=== PATIENT | male | born 1960 | race Caucasian/White ===

== ENCOUNTER 2018-02-06 13:38 | Inpatient (IN) | payer MEDICARE, MEDICAID ==
[2018-02-06] MEDS: IPRATROPIUM 0.5MG/ALBUTEROL 2.5MG INH SOL UD 3ML (DUONEB)(J7620) NEB ×3 (14:14→18:29)
[2018-02-06 14:21] LABS: ABG BASE EXCESS 0.3 (-2.0-2.0); ABG HCO3 22.3 MEQ/L (22.0-26.0); ABG O2 SATURATION 94.3 % (95.0-99.0); ABG PARTIAL PRESSURE CO2 29.8 mmHg (35.0-45.0); ABG STANDARD HCO3 24.6 MEQ/L (22.0-26.0); ABG TOTAL CO2 23.2 MEQ/L (22.0-29.0); ABG pH (ARTERIAL) 7.492 UNITS (7.350-7.450)
[2018-02-06 14:40] LABS: BASO # 0.1 10^3/uL (0.0-0.2); BASO % 0.3 % (0.0-1.0); EOS % 0.1 % (0.0-3.0); HEMOGLOBIN 16.1 g/dl (13.5-17.5); IMMATURE GRANULOCYTE % 0.5 % (0-3.0); LYMPH # 1.6 10^3/uL (1.5-4.5); LYMPH % 8.2 % (24.0-44.0); MEAN CORPUSCULAR HGB CONC 34.3 g/dl (32.0-36.5); MEAN CORPUSCULAR VOLUME 87.7 fl (80.0-96.0); MONO # 1.4 10^3/uL (0.0-0.8); MONO % 7.3 % (0.0-5.0); NEUTROPHILS # 16.3 10^3/uL (1.8-7.7); NEUTROPHILS % 83.6 % (36.0-66.0); PLATELET COUNT, AUTOMATED 298 10^3/uL (150-450); RED BLOOD COUNT 5.36 10^6/uL (4.30-6.10); RED CELL DISTRIBUTION WIDTH 12.8 % (11.5-14.5); WHITE BLOOD COUNT 19.4 10^3/uL (4.0-10.0)
[2018-02-06 15:04] LABS: LACTIC ACID SEPSIS PROTOCOL 1.5 MMOL/L (0.4-2.0)
[2018-02-06 15:06] LABS: ALBUMIN 3.6 GM/DL (3.2-5.2); ALKALINE PHOSPHATASE 89 U/L (45-117); ALT/SGPT 30 U/L (12-78); ANION GAP 9 MEQ/L (8-16); AST/SGOT 27 U/L (7-37); BILIRUBIN,DIRECT 0.2 MG/DL (0.0-0.2); BILIRUBIN,TOTAL 0.7 MG/DL (0.2-1.0); BLOOD UREA NITROGEN 13 MG/DL (7-18); CALCIUM LEVEL 8.8 MG/DL (8.5-10.1); CARBON DIOXIDE LEVEL 26 MEQ/L (21-32); CHLORIDE LEVEL 100 MEQ/L (98-107); CPK CREATINE PHOSPHOKINASE 121 U/L (39-308); CREATININE FOR GFR 0.95 MG/DL (0.70-1.30); GLOMERULAR FILTRATION RATE > 60.0 (>56); GLUCOSE, FASTING 114 MG/DL (70-100); POTASSIUM SERUM 4.5 MEQ/L (3.5-5.1); SODIUM LEVEL 135 MEQ/L (136-145); TOTAL PROTEIN 7.2 GM/DL (6.4-8.2); TROPONIN I < 0.02 NG/ML (< 0.10)
[2018-02-06 15:12] LABS: CK-MB VALUE MASS 2.6 NG/ML (<3.6); MB/CK RELATIVE INDEX 2.14 (< OR =4); NT-PRO BNP 113 PG/ML (<125)
[2018-02-06] MEDS ORDERED: ISOVUE-370 76% 100ML VIAL (Q9967) As Ordered (15:30)
[2018-02-06] MEDS: methylPREDNISolone INJ 125 MG/2 ML VIAL (J2930) IV ×2 (15:35→21:49)
[2018-02-06] MEDS: MOXIFLOXACIN HCL 400 MG in APPROPRIATE DILUENT 1 EA IV (15:50)
[2018-02-06] MEDS ORDERED: ONDANSETRON 4MG/2ML VIAL (J2405) IV (16:00)
[2018-02-06] MEDS ORDERED: ONDANSETRON 4 MG TAB (S0181) PO (16:00)
[2018-02-06] MEDS ORDERED: IPRATROPIUM 0.5MG/ALBUTEROL 2.5MG INH SOL UD 3ML (DUONEB)(J7620) NEB (16:00)
[2018-02-06 20:59] LABS: CK-MB VALUE MASS 2.8 NG/ML (<3.6); CPK CREATINE PHOSPHOKINASE 109 U/L (39-308); MB/CK RELATIVE INDEX 2.56 (< OR =4); TROPONIN I < 0.02 NG/ML (< 0.10)
[2018-02-06 21:01] LABS: KETONE, URINE AUTO RFX 1+ mg/dL (NEGATIVE); LEUKOCYTE ESTERASE UR AUTO RFX NEGATIVE (NEGATIVE); NITRITE, URINE AUTO RFX NEGATIVE (NEGATIVE); RBC, URINE AUTO RFX 3 /HPF (0-3); SQUAM EPITHELIAL CELL UR AURFX 0 /HPF (0-6); WBC, URINE AUTO RFX 1 /HPF (0-3)
[2018-02-06 21:02] LABS: SPECIFIC GRAVITY UR AUTO RFX >1.060 (1.002-1.035)
[2018-02-07] MEDS: IPRATROPIUM 0.5MG/ALBUTEROL 2.5MG INH SOL UD 3ML (DUONEB)(J7620) NEB ×4 (03:06→21:05)
[2018-02-07] MEDS: methylPREDNISolone INJ 125 MG/2 ML VIAL (J2930) IV ×4 (03:50→21:20)
[2018-02-07 05:53] LABS: BASO % 0.1 % (0.0-1.0); HEMATOCRIT 41.6 % (42.0-52.0); HEMOGLOBIN 14.5 g/dl (13.5-17.5); IMMATURE GRANULOCYTE % 0.4 % (0-3.0); LYMPH # 0.7 10^3/uL (1.5-4.5); LYMPH % 4.2 % (24.0-44.0); MEAN CORPUSCULAR HEMOGLOBIN 30.1 pg (27.0-33.0); MEAN CORPUSCULAR HGB CONC 34.9 g/dl (32.0-36.5); MEAN CORPUSCULAR VOLUME 86.5 fl (80.0-96.0); MONO # 0.3 10^3/uL (0.0-0.8); MONO % 1.9 % (0.0-5.0); NEUTROPHILS # 14.6 10^3/uL (1.8-7.7); NEUTROPHILS % 93.4 % (36.0-66.0); PLATELET COUNT, AUTOMATED 322 10^3/uL (150-450); RED BLOOD COUNT 4.81 10^6/uL (4.30-6.10); RED CELL DISTRIBUTION WIDTH 12.7 % (11.5-14.5); WHITE BLOOD COUNT 15.6 10^3/uL (4.0-10.0)
[2018-02-07 06:04] LABS: ANION GAP 8 MEQ/L (8-16); BLOOD UREA NITROGEN 17 MG/DL (7-18); CALCIUM LEVEL 9.1 MG/DL (8.5-10.1); CARBON DIOXIDE LEVEL 24 MEQ/L (21-32); CHLORIDE LEVEL 100 MEQ/L (98-107); GLOMERULAR FILTRATION RATE > 60.0 (>56); GLUCOSE, FASTING 175 MG/DL (70-100); MAGNESIUM LEVEL 2.4 MG/DL (1.8-2.4); POTASSIUM SERUM 4.4 MEQ/L (3.5-5.1); SODIUM LEVEL 132 MEQ/L (136-145)
[2018-02-07] MEDS: ENOXAPARIN 40 MG/0.4 ML SYRINGE (J1650) SC (08:53)
[2018-02-07] MEDS ORDERED: SLF 3 ML SYR IV (10:15)
[2018-02-07] MEDS: ACETAMINOPHEN TAB 650MG DOSE (2X325MG) PO (10:51)
[2018-02-07] MEDS: KETOROLAC 30 MG/ML VIAL (J1885) IV (11:57)
[2018-02-07] MEDS: SLF 3 ML SYR IV ×2 (14:33→21:20)
[2018-02-07] MEDS: VANCOMYCIN HCL 1,000 MG, VIAL MATE ADAPTER 1 EACH in D5W 250 ML IV ×2 (14:33→21:20)
[2018-02-07] MEDS: VANCOMYCIN HCL 500 MG in D5W MINI-BAG PLUS 100 ML IV (15:26)
[2018-02-07] MEDS: LevoFLOXacin IV 750 MG in APPROPRIATE DILUENT 1 EA IV (17:58)
[2018-02-08] MEDS: IPRATROPIUM 0.5MG/ALBUTEROL 2.5MG INH SOL UD 3ML (DUONEB)(J7620) NEB ×4 (01:50→20:08)
[2018-02-08] MEDS: KETOROLAC 30 MG/ML VIAL (J1885) IV ×2 (02:00→22:47)
[2018-02-08] MEDS: methylPREDNISolone INJ 125 MG/2 ML VIAL (J2930) IV (04:04)
[2018-02-08 05:09] LABS: BASO % 0.1 % (0.0-1.0); HEMATOCRIT 39.3 % (42.0-52.0); HEMOGLOBIN 13.6 g/dl (13.5-17.5); IMMATURE GRANULOCYTE % 0.6 % (0-3.0); LYMPH # 0.8 10^3/uL (1.5-4.5); LYMPH % 3.6 % (24.0-44.0); MEAN CORPUSCULAR HEMOGLOBIN 30.3 pg (27.0-33.0); MEAN CORPUSCULAR HGB CONC 34.6 g/dl (32.0-36.5); MEAN CORPUSCULAR VOLUME 87.5 fl (80.0-96.0); MONO # 0.8 10^3/uL (0.0-0.8); MONO % 3.5 % (0.0-5.0); NEUTROPHILS # 20.6 10^3/uL (1.8-7.7); NEUTROPHILS % 92.2 % (36.0-66.0); PLATELET COUNT, AUTOMATED 370 10^3/uL (150-450); RED BLOOD COUNT 4.49 10^6/uL (4.30-6.10); RED CELL DISTRIBUTION WIDTH 12.8 % (11.5-14.5); WHITE BLOOD COUNT 22.3 10^3/uL (4.0-10.0)
[2018-02-08 05:23] LABS: ANION GAP 6 MEQ/L (8-16); BLOOD UREA NITROGEN 32 MG/DL (7-18); CALCIUM LEVEL 9.2 MG/DL (8.5-10.1); CARBON DIOXIDE LEVEL 25 MEQ/L (21-32); CHLORIDE LEVEL 102 MEQ/L (98-107); CREATININE FOR GFR 0.97 MG/DL (0.70-1.30); GLOMERULAR FILTRATION RATE > 60.0 (>56); GLUCOSE, FASTING 181 MG/DL (70-100); MAGNESIUM LEVEL 2.1 MG/DL (1.8-2.4); SODIUM LEVEL 133 MEQ/L (136-145)
[2018-02-08] MEDS: VANCOMYCIN HCL 1,000 MG, VIAL MATE ADAPTER 1 EACH in D5W 250 ML IV ×3 (06:07→22:27)
[2018-02-08] MEDS: SLF 3 ML SYR IV ×3 (06:07→22:27)
[2018-02-08 08:31] LABS: C REACTIVE PROTEIN QUANTITATIV 8.96 MG/DL (0.00-0.30)
[2018-02-08 08:52] LABS: ERYTHROCYTE SEDIMENTATION RATE 11 mm/hr (0-20)
[2018-02-08] MEDS: ENOXAPARIN 40 MG/0.4 ML SYRINGE (J1650) SC (09:14)
[2018-02-08 14:15] LABS: VANCOMYCIN LEVEL TROUGH 16.6 UG/ML (10.0-20.0)
[2018-02-08] MEDS: methylPREDNISolone INJ 40 MG/1 ML VIAL (J2920) IV (17:19)
[2018-02-08] MEDS: LevoFLOXacin IV 750 MG in APPROPRIATE DILUENT 1 EA IV (17:19)
[2018-02-09] MEDS: IPRATROPIUM 0.5MG/ALBUTEROL 2.5MG INH SOL UD 3ML (DUONEB)(J7620) NEB ×2 (01:44→07:28)
[2018-02-09] MEDS: methylPREDNISolone INJ 40 MG/1 ML VIAL (J2920) IV (04:29)
[2018-02-09 05:16] LABS: BASO % 0.2 % (0.0-1.0); HEMATOCRIT 36.7 % (42.0-52.0); HEMOGLOBIN 12.6 g/dl (13.5-17.5); IMMATURE GRANULOCYTE % 0.9 % (0-3.0); LYMPH # 0.9 10^3/uL (1.5-4.5); LYMPH % 5.3 % (24.0-44.0); MEAN CORPUSCULAR HEMOGLOBIN 30.1 pg (27.0-33.0); MEAN CORPUSCULAR HGB CONC 34.3 g/dl (32.0-36.5); MEAN CORPUSCULAR VOLUME 87.6 fl (80.0-96.0); MONO % 5.6 % (0.0-5.0); NEUTROPHILS # 15.2 10^3/uL (1.8-7.7); PLATELET COUNT, AUTOMATED 375 10^3/uL (150-450); RED BLOOD COUNT 4.19 10^6/uL (4.30-6.10); WHITE BLOOD COUNT 17.3 10^3/uL (4.0-10.0)
[2018-02-09 05:31] LABS: ANION GAP 6 MEQ/L (8-16); BLOOD UREA NITROGEN 21 MG/DL (7-18); C REACTIVE PROTEIN QUANTITATIV 3.78 MG/DL (0.00-0.30); CARBON DIOXIDE LEVEL 25 MEQ/L (21-32); CHLORIDE LEVEL 106 MEQ/L (98-107); CREATININE FOR GFR 0.87 MG/DL (0.70-1.30); GLOMERULAR FILTRATION RATE > 60.0 (>56); GLUCOSE, FASTING 160 MG/DL (70-100); MAGNESIUM LEVEL 1.9 MG/DL (1.8-2.4); POTASSIUM SERUM 4.8 MEQ/L (3.5-5.1); SODIUM LEVEL 137 MEQ/L (136-145)
[2018-02-09 05:49] LABS: ERYTHROCYTE SEDIMENTATION RATE 12 mm/hr (0-20)
[2018-02-09] MEDS: VANCOMYCIN HCL 1,000 MG, VIAL MATE ADAPTER 1 EACH in D5W 250 ML IV (05:59)
[2018-02-09] MEDS: SLF 3 ML SYR IV (05:59)
[2018-02-09] MEDS: ENOXAPARIN 40 MG/0.4 ML SYRINGE (J1650) SC (08:22)
[2018-02-09] MEDS: LevoFLOXacin 750 MG TABLET PO (08:22)
[2018-02-10] MEDS ORDERED: predniSONE 20 MG TAB PO (09:00)
== END 2018-02-09 12:40 | disposition home or self-care (01) | DRG 190 ==
LOC: M ED 13:38 → M MSPAV 02-08 15:06 → M ED INP 16:21 → M PCU 21:27
DX: J44.1 Chronic obstructive pulmonary disease with (acute) exacerbation (principal); J18.9 Pneumonia, unspecified organism; I31.3 Pericardial effusion (noninflammatory); E87.1 Hypo-osmolality and hyponatremia; M19.90 Unspecified osteoarthritis, unspecified site; F31.9 Bipolar disorder, unspecified; E78.5 Hyperlipidemia, unspecified; K40.91 Unilateral inguinal hernia, without obstruction or gangrene, recurrent; E07.9 Disorder of thyroid, unspecified

== ENCOUNTER 2018-03-08 07:57 | Day surgery (SDC) | payer OTHER, MEDICAID ==
[~2018-03-08 07:57] MED LIST: LIDOCAINE 2% INJ 100 MG/5 ML SDV (FOR ANES.) As Ordered; MIDAZOLAM INJ 2 MG/2 ML VIAL (J2250) As Ordered; PROPOFOL 200 MG/20 ML VIAL As Ordered; fentaNYL 100 MCG/2 ML INJECTION (J3010) As Ordered
[2018-03-08] MEDS: LR 1,000 ML IV ×2 (08:23→11:58)
[2018-03-08] MEDS ORDERED: BUPIVACAINE HCL 0.25% 30 ML VIAL As Ordered (09:02)
[2018-03-08] MEDS ORDERED: PROPOFOL 200 MG/20 ML VIAL As Ordered (10:14)
[2018-03-08] MEDS ORDERED: dexameTHASONE 4 MG/ML 1ML VIAL (J1100) As Ordered (10:14)
[2018-03-08] MEDS ORDERED: ONDANSETRON 4MG/2ML VIAL (J2405) As Ordered (10:14)
[2018-03-08] MEDS: BUPIVACAINE HCL 0.25% 30 ML VIAL As Ordered (11:20)
[2018-03-08] MEDS ORDERED: IBUPROFEN 600 MG TAB PO (12:15)
[2018-03-08] MEDS ORDERED: ACETAMINOPHEN TAB 650MG DOSE (2X325MG) PO (12:15)
[2018-03-08] MEDS ORDERED: ONDANSETRON 4MG/2ML VIAL (J2405) IV (12:15)
[2018-03-08] MEDS ORDERED: NORCO, ANEXSIA 5/325MG TABLET (HYDROcodone/ACETAMINOPHEN) PO (12:15)
[2018-03-08] MEDS ORDERED: fentaNYL 100 MCG/2 ML INJECTION (J3010) IV (12:15)
[2018-03-08] MEDS: PERCOCET 5MG/325MG TAB PO ×2 (12:40→13:10)
== END 2018-03-08 17:50 | disposition home or self-care (01) ==
LOC: M SDC 07:57
DX: K40.90 Unilateral inguinal hernia, without obstruction or gangrene, not specified as recurrent (principal); J44.9 Chronic obstructive pulmonary disease, unspecified; Z79.51 Long term (current) use of inhaled steroids; Z87.891 Personal history of nicotine dependence
CPT/HCPCS: 49520

== ENCOUNTER 2018-03-22 17:37 | Emergency (ER) | payer OTHER, MEDICAID ==
[2018-03-22] MEDS: NS 1,000 ML IV ×2 (17:45→18:16)
[2018-03-22 18:20] LABS: BASO # 0.1 10^3/uL (0.0-0.2); BASO % 0.5 % (0.0-1.0); EOS # 0.1 10^3/uL (0.0-0.50); EOS % 0.9 % (0.0-3.0); HEMATOCRIT 45.5 % (42.0-52.0); HEMOGLOBIN 15.3 g/dl (13.5-17.5); IMMATURE GRANULOCYTE % 0.3 % (0-3.0); LYMPH # 2.5 10^3/uL (1.5-4.5); LYMPH % 15.7 % (24.0-44.0); MEAN CORPUSCULAR HEMOGLOBIN 30.5 pg (27.0-33.0); MEAN CORPUSCULAR HGB CONC 33.6 g/dl (32.0-36.5); MEAN CORPUSCULAR VOLUME 90.6 fl (80.0-96.0); MONO % 6.4 % (0.0-5.0); NEUTROPHILS # 11.9 10^3/uL (1.8-7.7); NEUTROPHILS % 76.2 % (36.0-66.0); PLATELET COUNT, AUTOMATED 414 10^3/uL (150-450); RED BLOOD COUNT 5.02 10^6/uL (4.30-6.10); RED CELL DISTRIBUTION WIDTH 14.6 % (11.5-14.5); WHITE BLOOD COUNT 15.6 10^3/uL (4.0-10.0)
[2018-03-22 18:50] LABS: ALBUMIN/GLOBULIN RATIO 1.14 (1.00-1.93); ALKALINE PHOSPHATASE 96 U/L (45-117); ALT/SGPT 24 U/L (12-78); ANION GAP 6 MEQ/L (8-16); AST/SGOT 16 U/L (7-37); BILIRUBIN,DIRECT 0.1 MG/DL (0.0-0.2); BILIRUBIN,TOTAL 0.5 MG/DL (0.2-1.0); BLOOD UREA NITROGEN 14 MG/DL (7-18); CALCIUM LEVEL 9.4 MG/DL (8.5-10.1); CARBON DIOXIDE LEVEL 29 MEQ/L (21-32); CHLORIDE LEVEL 104 MEQ/L (98-107); CREATININE FOR GFR 0.94 MG/DL (0.70-1.30); GLOMERULAR FILTRATION RATE > 60.0 (>56); GLUCOSE, FASTING 96 MG/DL (70-100); LIPASE 164 U/L (73-393); POTASSIUM SERUM 4.5 MEQ/L (3.5-5.1); SODIUM LEVEL 139 MEQ/L (136-145); TOTAL PROTEIN 7.5 GM/DL (6.4-8.2)
[2018-03-22] MEDS: KETOROLAC 30 MG/ML VIAL (J1885) IV (19:08)
[2018-03-22] MEDS: NORCO, ANEXSIA 5/325MG TABLET (HYDROcodone/ACETAMINOPHEN) PO (19:08)
== END 2018-03-22 20:59 | disposition home or self-care (01) ==
LOC: M ED 17:37
DX: L76.34 Postprocedural seroma of skin and subcutaneous tissue following other procedure (principal); J44.9 Chronic obstructive pulmonary disease, unspecified; Z72.0 Tobacco use; Z79.899 Other long term (current) drug therapy
CPT/HCPCS: J1885

== ENCOUNTER → 2018-07-30 | Outpatient (REF) | payer OTHER, MEDICAID ==
[2018-07-30 16:14] LABS: ALBUMIN 4.3 GM/DL (3.2-5.2); ALKALINE PHOSPHATASE 93 U/L (45-117); ALT/SGPT 21 U/L (12-78); ANION GAP 7 MEQ/L (8-16); AST/SGOT 16 U/L (7-37); BILIRUBIN,TOTAL 0.5 MG/DL (0.2-1.0); BLOOD UREA NITROGEN 8 MG/DL (7-18); CARBON DIOXIDE LEVEL 28 MEQ/L (21-32); CHLORIDE LEVEL 104 MEQ/L (98-107); CHOLESTEROL LEVEL 213 MG/DL (<200); CREATININE FOR GFR 0.98 MG/DL (0.70-1.30); GLOMERULAR FILTRATION RATE > 60.0 (>56); GLUCOSE, FASTING 107 MG/DL (70-100); HDL CHOLESTEROL 60 MG/DL (>40); LDL CHOLESTEROL 138 MG/DL (<100); NON-HDL-C 153 MG/DL; POTASSIUM SERUM 4.7 MEQ/L (3.5-5.1); SODIUM LEVEL 139 MEQ/L (136-145); TOTAL PROTEIN 7.6 GM/DL (6.4-8.2); TRIGLYCERIDES LEVEL 74 MG/DL (<150)
== END ==
LOC: M SFHCPLAZ 14:09
DX: Z00.00 Encounter for general adult medical examination without abnormal findings (principal); Z13.220 Encounter for screening for lipoid disorders; M47.816 Spondylosis without myelopathy or radiculopathy, lumbar region; J44.9 Chronic obstructive pulmonary disease, unspecified; Z72.0 Tobacco use; Z86.59 Personal history of other mental and behavioral disorders
CPT/HCPCS: 84443

== ENCOUNTER → 2019-03-05 | Outpatient (CLI) | payer MEDICARE ==
[~2019-03-05] MED LIST changes: +ADV250INH INH; +ALBU83IN INH; +COMP1MIS3 XX; +HYDR-3715 PO; +ISOVUE-370 76% 100ML VIAL (Q9967) As Ordered ONE; +LEVA750T7 PO; -LIDOCAINE 2% INJ 100 MG/5 ML SDV (FOR ANES.) As Ordered; -MIDAZOLAM INJ 2 MG/2 ML VIAL (J2250) As Ordered; +PRED10TA2 PO; -PROPOFOL 200 MG/20 ML VIAL As Ordered; +SUDA30TA8 PO; +TYLE650T35 PO; +VENTAER INH; -fentaNYL 100 MCG/2 ML INJECTION (J3010) As Ordered
--- NOTE | 2019-03-05 11:36 | REP ---
CT CHEST WITH IV CONTRAST: HISTORY: Hilar adenopathy. Comparison chest CT study is from February 06, 2018. CT CONTRAST DOSE: 75 mL of intravenous Isovue 370. 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 The previously noted infiltrates have resolved. There is advanced emphysematous change throughout the upper lobes bilaterally and, to a slightly lesser extent, in the lower lobes. The left diaphragm is inverted. The right diaphragm is flattened. There is a small quantity of pericardial fluid. There is no pleural effusion. No mediastinal adenopathy is seen. There is a subcarinal lymph node with short axis dimension of 8 mm. There is a right hilar lymph node with short axis dimension of 7 mm. No left hilar adenopathy is seen. The aorta enhances homogeneously without evidence of aneurysm or dissection. There is no filling defect in the pulmonary arterial tree to suggest pulmonary embolus. There is some vascular calcification. No adrenal lesion is seen. There are tiny bilateral renal cortical cysts. No bony destructive lesion is appreciated. No pulmonary nodule is appreciated. IMPRESSION: Advanced COPD. Normal-sized lymph nodes in the right hilus and subcarinal region. No definite adenopathy. Electronically Signed by Raghav Moreno MD 03/05/2019 11:53 A
== END ==
LOC: M RAD 09:35
PROVIDERS: ATTEND Nurse Practitioner Adult Health
DX: J44.9 Chronic obstructive pulmonary disease, unspecified (principal); N28.1 Cyst of kidney, acquired
CPT/HCPCS: 71260; Q9967

== ENCOUNTER → 2019-08-05 | Outpatient (REF) | payer MEDICARE, MEDICAID ==
[~2019-08-05] MED LIST changes: -ISOVUE-370 76% 100ML VIAL (Q9967) As Ordered ONE
[2019-08-05 13:23] LABS: ALBUMIN 4.1 GM/DL (3.2-5.2); ALT/SGPT 20 U/L (12-78); BILIRUBIN,TOTAL 0.5 MG/DL (0.2-1.0); BLOOD UREA NITROGEN 6 MG/DL (7-18); CALCIUM LEVEL 9.9 MG/DL (8.8-10.2); CARBON DIOXIDE LEVEL 28 MEQ/L (21-32); CHLORIDE LEVEL 104 MEQ/L (98-107); CHOLESTEROL LEVEL 167 MG/DL (<200); CHOLESTEROL RISK RATIO 2.492 (<5); CREATININE FOR GFR 0.85 MG/DL (0.70-1.30); GLOMERULAR FILTRATION RATE > 60.0 (>49); GLUCOSE, FASTING 99 MG/DL (70-100); HDL CHOLESTEROL 67 MG/DL (>40); LDL CHOLESTEROL 86 MG/DL (<100); NON-HDL-C 100 MG/DL; POTASSIUM SERUM 5.4 MEQ/L (3.5-5.1); SODIUM LEVEL 139 MEQ/L (136-145); TOTAL PROTEIN 6.8 GM/DL (6.4-8.2); TRIGLYCERIDES LEVEL 69 MG/DL (<150)
[2019-08-05 13:51] LABS: HEMOGLOBIN A1c 5.9 %
== END ==
LOC: M SFHCPLAZ 10:37
PROVIDERS: ATTEND Nurse Practitioner Adult Health
DX: E55.9 Vitamin D deficiency, unspecified (principal); R73.9 Hyperglycemia, unspecified; Z13.220 Encounter for screening for lipoid disorders; I25.10 Atherosclerotic heart disease of native coronary artery without angina pectoris
CPT/HCPCS: 36415; 80053; 80061; 82306; 83036; 84443; G0463

== ENCOUNTER 2020-08-05 08:14 | Inpatient (IN) | payer MEDICARE, MEDICAID ==
[~2020-08-05] VITALS: Ht 167.6 cm; Wt 61.4 kg
[~2020-08-05 08:14] MED LIST changes: +ACET650T61 PO; -TYLE650T35 PO
[2020-08-05] MEDS ORDERED: ADV500INH INH (08:25)
[2020-08-05] MEDS ORDERED: ALBU8.5H INH (08:25)
[2020-08-05] MEDS ORDERED: MELO15TA28 PO (08:25)
[2020-08-05] MEDS ORDERED: ATOR1TAB21 PO (08:25)
[2020-08-05] MEDS ORDERED: DALI250T PO (08:26)
[2020-08-05 09:03] LABS: BASO # 0.1 10^3/uL (0.0-0.2); BASO % 0.4 % (0.0-1.0); EOS # 0.3 10^3/uL (0.0-0.5); EOS % 2.3 % (0.0-3.0); HEMATOCRIT 45.5 % (42.0-52.0); HEMOGLOBIN 15.3 g/dl (13.5-17.5); LYMPH # 1.7 10^3/uL (1.5-5.0); LYMPH % 12.6 % (24.0-44.0); MEAN CORPUSCULAR HEMOGLOBIN 30.2 pg (27.0-33.0); MEAN CORPUSCULAR HGB CONC 33.6 g/dl (32.0-36.5); MEAN CORPUSCULAR VOLUME 89.9 fl (80.0-96.0); MONO # 1.3 10^3/uL (0.0-0.8); MONO % 9.7 % (0.0-5.0); NEUTROPHILS # 9.9 10^3/uL (1.5-8.5); NEUTROPHILS % 74.8 % (36.0-66.0); PLATELET COUNT, AUTOMATED 382 10^3/uL (150-450); RED BLOOD COUNT 5.06 10^6/uL (4.30-6.10); WHITE BLOOD COUNT 13.3 10^3/uL (4.0-10.0)
[2020-08-05 09:13] LABS: BLOOD UREA NITROGEN 10 MG/DL (7-18); CALCIUM LEVEL 8.8 MG/DL (8.8-10.2); CARBON DIOXIDE LEVEL 26 MEQ/L (21-32); CHLORIDE LEVEL 106 MEQ/L (98-107); CREATININE FOR GFR 0.87 MG/DL (0.70-1.30); GLOMERULAR FILTRATION RATE > 60.0 (>49); GLUCOSE, FASTING 129 MG/DL (70-100); POTASSIUM SERUM 4.3 MEQ/L (3.5-5.1); SODIUM LEVEL 138 MEQ/L (136-145)
--- NOTE | 2020-08-05 09:37 | REP ---
INDICATION: DYSPNEA/COUGH. COMPARISON: 02/06/2018. TECHNIQUE: SINGLE PORTABLE AP VIEW OF THE CHEST WAS PERFORMED. FINDINGS: There is hyperinflation. Both diaphragms are flattened. Prominent interstitial markings are seen in each lung base likely representing fibrosis, although some degree of interstitial edema cannot totally be excluded. No consolidating infiltrate is seen. The heart is normal in size. The mediastinal silhouette is unremarkable. The visualized osseous structures are intact. IMPRESSION: Increased interstitial markings in the lung bases bilaterally likely on the basis of COPD and interstitial fibrosis, although some degree of interstitial edema cannot totally be excluded. No consolidating infiltrate. <Electronically signed by Vinh Okeefe > 08/05/20 [id number]
[2020-08-05] MEDS: IPRATROPIUM 0.5MG/ALBUTEROL 2.5MG INH SOL UD 3ML (DUONEB) NEB SCH ×6 (10:02→23:13)
[2020-08-05 11:30] VITALS: O2SAT 86
[2020-08-05] MEDS ORDERED: ALBUTEROL SULFATE 2.5 MG/0.5 ML INH NEB SOLN NEB PRN (13:30)
[2020-08-05] MEDS: DOXYCYCLINE HYCLATE 100MG TABLET PO SCH ×2 (13:37→21:12)
[2020-08-05] MEDS: methylPREDNISolone 40MG 1ML VIAL IV SCH ×2 (13:38→21:11)
[2020-08-05 15:03] VITALS: BP 102/77
--- NOTE | 2020-08-05 18:56 | HPEPDOC ---
General Date of Admission 08/05/20 Date of Service: Aug 05, 2020 Chief Complaint The patient is a 59-year-old male admitted with a reason for visit of Shortness Of Breath. Source: Patient History of Present Illness 59 year old male with h/o COPD presented to the ED with 3 days h/o increasing SOB with increased cough, congestion, increased phlegm production white colored without any fever or chills. He has quit smoking int he last year and is now smoking an oil approved by the cancer society? cannabis oii. He improved a little after nebs and steroids in the ED ans was saturating 89% to 90% at rest however on ambulation to 15 ft he became extremely SOB with spo2 dropping to 86% in room and air and tachypnea to 35. At baseline he does not use any oxygen at home. Resp panel came back positive with Rhinovirus. Patient admitted for viral resp tract infection with acute respiratory failure with hypoxia and COPD exacerbation. Home Medications Scheduled Atorvastatin Calcium (Atorvastatin Calcium) 20 Mg Tablet, 20 MG PO DAILY, (Reported) Meloxicam (Meloxicam) 15 Mg Tablet, 15 MG PO DAILY, (Reported) Roflumilast (Daliresp) 250 Mcg Tablet, 250 MCG PO DAILY, (Reported) Salmeterol/Fluticasone (Advair 500-50 Diskus) 1 Each Blst.w.dev, 1 PUFF INH BID, (Reported) Scheduled PRN Albuterol Sulfate (Albuterol Sulfate Hfa) 8.5 Gm Hfa.aer.ad, 2 PUFFS INH Q4H PRN for SOB/COUGH, (Reported) Allergies Coded Allergies: No Known Allergies (Verified , 03/08/18) Past Medical History Medical History COPD Bipolar disorder, OA, DDD with Chronic low back pain s/p injury after fall in , ADHD, Dyslipidemia, HISTORY -POLYSUBSTANCE ABUSE (CRYSTALMETH AND MARIUAJANA) QUIT IN 2002, h/o thyroid disease, smoking a oil Surgical History RIGHT INGUINAL HERNIA REPAIR AGE 11 LEFT HAND SURGERY 1999 LEFT INGUINAL HERNIA REPAIR 2011 LEFT KNEE ARTHROSCOPIC SURG X 3 LAST ONE 2012 RIGHT INGUINAL/FEMORAL HERNIA REPAIR-DR. BOONE 03/08/2018 Fracture right leg Family History FATHER: 71 YRS, UNKNOWN MOTHER: CVA STATES SHE IS ON BLOOD THINNERS. PATERNAL GRAND MOTHER: DM-2 3 BROTHER(S) , 4 SISTER(S) . 1 SON(S) , 2 DAUGHTER(S) . SISTERS-A NIECE CANCERS AND DIABETES ONE DAUGHTER HAS CERVICAL CANCER Social History * Smoker: former Smoker Alcohol: rarely Drugs: marijuana (CBD oil) A-FIB/CHADSVASC A-FIB History Current/History of A-Fib/PAF?: No Review of Systems Constitutional: Denies: Chills, Fever, Night Sweats Eyes: Denies: Pain, Vision change ENT: Denies: Head Aches, Ear Pain, Dysphagia Skin: Denies: Rash, Lesions, Breakdown Pulmonary: Reports: Dyspnea, Cough Cardiovascular: Denies: Chest Pain, Palpitations, Orthopnea, Paroxysmal Noc. Dyspnea, Lt Headedness Gastrointestinal: Denies: Nausea, Vomiting, Abdominal Pain, Diarrhea Genitourinary: Denies: Dysuria, Frequency, Incontinence, Retention Hematologic: Denies: Bruising, Bleeding Excessively Musculoskeletal: Denies: Neck Pain, Back Pain, Joint Pain, Muscle Pain, Spasms Physical Examination General Exam: Positive: Alert, Cooperative, Mild Distress Eye Exam: Positive: PERRLA, Conjunctiva & lids normal, EOMI; Negative: Sclera icteric ENT Exam: Positive: Atraumatic, Mucous membr. moist/pink, Pharynx Normal Neck Exam: Positive: Supple; Negative: JVD, thyromegaly Chest Exam: Positive: Wheezing, Diminished, Other (use of accessary muscle ) Heart Exam: Positive: Tachycardic, Regular Rhythm, Normal S1, Normal S2; Negative: Murmurs, Rubs Telemetry: Positive: No significant arrhythmia Abdomen Exam: Positive: Normal bowel sounds, Soft; Negative: Tenderness, Hepatospenomegaly Extremity Exam: Positive: Normal pulses; Negative: Clubbing, Cyanosis, Edema Skin Exam: Positive: Nl turgor and temperature; Negative: Breakdown, Lesion Neuro Exam: Positive: Normal Gait, Normal Speech, Cranial Nerves 3-12 NL, Reflexes 2+ Vital Signs Vital Signs Date Time Temp Pulse Resp B/P (MAP) Pulse Ox O2 Delivery O2 Flow Rate FiO2 08/05/20 11:30 86 Room Air 08/05/20 11:00 106 25 137/87 (104) 2.0 08/05/20 08:26 99.2 Laboratory Data Labs 24H Laboratory Tests 2 08/05/20 08:41: Immature Granulocyte % (Auto) 0.2, Neutrophils (%) (Auto) 74.8H, Lymphocytes (%) (Auto) 12.6L, Monocytes (%) (Auto) 9.7H, Eosinophils (%) (Auto) 2.3, Basophils (%) (Auto) 0.4, Neutrophils # (Auto) 9.9H, Lymphocytes # (Auto) 1.7, Monocytes # (Auto) 1.3H, Eosinophils # (Auto) 0.3, Basophils # (Auto) 0.1, Nucleated Red Blood Cells % (auto) 0.0, Anion Gap 6L, Glomerular Filtration Rate > 60.0, Lactic Acid Level 1.0, Calcium Level 8.8 CBC/BMP Laboratory Tests 08/05/20 08:41 Assessment/Plan 59 year old male with h/o COPD presented to the ED with 3 days h/o increasing SOB with increased cough, congestion, increased phlegm production white colored without any fever or chills. He has quit smoking int he last year and is now smoking an oil approved by the cancer society? cannabis oii. He improved a little after nebs and steroids in the ED ans was saturating 89% to 90% at rest however on ambulation to 15 ft he became extremely SOB with spo2 dropping to 86% in room and air and tachypnea to 35. At baseline he does not use any oxygen at home. Resp panel came back positive with Rhinovirus. Patient admitted for viral resp tract infection with acute respiratory failure with hypoxia and COPD exacerbation. Acute resp failure with hypoxia due to Rhino virus infection with COPD exacerbation droplet isolation oxygen supplementation COPD exacerbation duonebs, methyl pred, advair. HLD statin Plan / VTE VTE Prophylaxis Ordered?: Yes REYNOLD FERRELL MD Aug 05, 2020 12:39
[2020-08-05] MEDS: ADVAIR HFA 230/21MCG INHALER INH SCH (19:41)
[2020-08-05] MEDS: FAMOTIDINE 20 MG TAB PO SCH (21:12)
[2020-08-05] MEDS: ENOXAPARIN 40MG/0.4ML SYRINGE (J1650 PER 10MG) SC SCH (21:12)
[2020-08-05 22:00] VITALS: BP 104/76
[2020-08-06] MEDS: IPRATROPIUM 0.5MG/ALBUTEROL 2.5MG INH SOL UD 3ML (DUONEB) NEB SCH ×6 (03:15→23:24)
[2020-08-06 06:00] VITALS: BP 107/79
[2020-08-06] MEDS: methylPREDNISolone 40MG 1ML VIAL IV SCH ×3 (06:22→21:29)
[2020-08-06 06:32] LABS: HEMATOCRIT 42.4 % (42.0-52.0); HEMOGLOBIN 14.5 g/dl (13.5-17.5); MEAN CORPUSCULAR HEMOGLOBIN 30.9 pg (27.0-33.0); MEAN CORPUSCULAR HGB CONC 34.2 g/dl (32.0-36.5); MEAN CORPUSCULAR VOLUME 90.2 fl (80.0-96.0); PLATELET COUNT, AUTOMATED 407 10^3/uL (150-450); WHITE BLOOD COUNT 19.1 10^3/uL (4.0-10.0)
[2020-08-06 06:52] LABS: BLOOD UREA NITROGEN 14 MG/DL (7-18); CALCIUM LEVEL 9.2 MG/DL (8.8-10.2); CARBON DIOXIDE LEVEL 26 MEQ/L (21-32); CHLORIDE LEVEL 104 MEQ/L (98-107); CREATININE FOR GFR 0.75 MG/DL (0.70-1.30); GLOMERULAR FILTRATION RATE > 60.0 (>49); GLUCOSE, FASTING 153 MG/DL (70-100); POTASSIUM SERUM 4.4 MEQ/L (3.5-5.1); SODIUM LEVEL 138 MEQ/L (136-145)
--- NOTE | 2020-08-06 07:57 | ECGEPIP ---
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
[2020-08-06] MEDS: ADVAIR HFA 230/21MCG INHALER INH SCH ×2 (08:35→19:38)
[2020-08-06] MEDS: DOXYCYCLINE HYCLATE 100MG TABLET PO SCH ×2 (09:17→21:30)
--- NOTE | 2020-08-06 12:13 | IPNPDOC ---
Subjective Date Seen The patient was seen on 08/06/20. Subjective Chief Complaint/HPI Still becoming extremely winded on just getting out of bed to chair or to go to the bathroom. Also still having conversational dyspnea. Was able to eat breakfast. Says breathing is OK if he is just resting. No fever or chills. Still has some chest tightness but a little better than yesterday. Objective Physical Examination General Exam: Positive: Alert, Cooperative, Mild Distress, Other (has 8 word conversational dyspnea. ) Eye Exam: Positive: PERRLA, Conjunctiva & lids normal, EOMI; Negative: Sclera icteric ENT Exam: Positive: Atraumatic, Mucous membr. moist/pink, Pharynx Normal Neck Exam: Positive: Supple; Negative: JVD, thyromegaly Chest Exam: Positive: Wheezing, Diminished (overall airentry is very diminished all over the lung. ), Other Heart Exam: Positive: Tachycardic, Regular Rhythm, Normal S1, Normal S2; Negative: Murmurs, Rubs Telemetry: Positive: No significant arrhythmia Abdomen Exam: Positive: Normal bowel sounds, Soft; Negative: Tenderness, Hepatospenomegaly Extremity Exam: Positive: Normal pulses; Negative: Clubbing, Cyanosis, Edema Skin Exam: Positive: Nl turgor and temperature; Negative: Breakdown, Lesion Neuro Exam: Positive: Normal Gait, Normal Speech, Cranial Nerves 3-12 NL, Reflexes 2+ Assessment /Plan Assessment 59 year old male with h/o COPD presented to the ED with 3 days h/o increasing SOB with increased cough, congestion, increased phlegm production white colored without any fever or chills. He has quit smoking int he last year and is now smoking an oil approved by the cancer society? cannabis oii. He improved a little after nebs and steroids in the ED ans was saturating 89% to 90% at rest however on ambulation to 15 ft he became extremely SOB with spo2 dropping to 86% in room and air and tachypnea to 35. At baseline he does not use any oxygen at home. Resp panel came back positive with Rhinovirus. Patient admitted for viral resp tract infection with acute respiratory failure with hypoxia and COPD exacerbation. Acute resp failure with hypoxia due to Rhino virus infection with COPD exacerbation droplet isolation oxygen supplementation COPD exacerbation duonebs, methyl pred, advair, doxycycline. HLD statin Plan/VTE VTE Prophylaxis Ordered?: Yes VS, I&O, 24H, Fishbone Vital Signs/I&O Vital Signs Date Time Temp Pulse Resp B/P (MAP) Pulse Ox O2 Delivery O2 Flow Rate FiO2 08/06/20 09:30 1.0 08/06/20 06:00 96.9 113 22 107/79 (88) 92 Nasal Cannula I&O- Last 24 Hours up to 6 AM 08/06/20 06:00 Intake Total 840 ml Output Total 450 ml Balance 390 ml Laboratory Data 24H LABS Laboratory Tests 2 08/06/20 05:41: Nucleated Red Blood Cells % (auto) 0.0, Anion Gap 8, Glomerular Filtration Rate > 60.0, Calcium Level 9.2 CBC/BMP Laboratory Tests 08/06/20 05:41 Microbiology Microbiology 08/05/20 Respiratory Virus Panel (PCR) ([facility]) - Final, Complete Human Rhinovirus/Enterovirus REYNOLD FERRELL MD Aug 06, 2020 12:13
[2020-08-06] MEDS ORDERED: FUROSEMIDE 20MG/2ML VIAL (J1940) IV ONE (12:15)
[2020-08-06 14:00] VITALS: BP 108/78
[2020-08-06] MEDS: ENOXAPARIN 40MG/0.4ML SYRINGE (J1650 PER 10MG) SC SCH (21:29)
[2020-08-06] MEDS: FAMOTIDINE 20 MG TAB PO SCH (21:30)
[2020-08-06 22:00] VITALS: BP 133/82
[2020-08-07 06:00] VITALS: BP 109/78
[2020-08-07] MEDS: methylPREDNISolone 40MG 1ML VIAL IV SCH (06:56)
[2020-08-07 07:02] LABS: HEMATOCRIT 42.6 % (42.0-52.0); HEMOGLOBIN 14.7 g/dl (13.5-17.5); MEAN CORPUSCULAR HEMOGLOBIN 31.4 pg (27.0-33.0); MEAN CORPUSCULAR HGB CONC 34.5 g/dl (32.0-36.5); PLATELET COUNT, AUTOMATED 436 10^3/uL (150-450); RED BLOOD COUNT 4.68 10^6/uL (4.30-6.10); WHITE BLOOD COUNT 23.2 10^3/uL (4.0-10.0)
[2020-08-07] MEDS: IPRATROPIUM 0.5MG/ALBUTEROL 2.5MG INH SOL UD 3ML (DUONEB) NEB SCH ×6 (07:16→23:40)
[2020-08-07] MEDS: ADVAIR HFA 230/21MCG INHALER INH SCH ×2 (07:16→19:37)
[2020-08-07 07:23] LABS: BLOOD UREA NITROGEN 16 MG/DL (7-18); CALCIUM LEVEL 9.2 MG/DL (8.8-10.2); CARBON DIOXIDE LEVEL 27 MEQ/L (21-32); CHLORIDE LEVEL 106 MEQ/L (98-107); CREATININE FOR GFR 0.85 MG/DL (0.70-1.30); GLOMERULAR FILTRATION RATE > 60.0 (>49); GLUCOSE, FASTING 135 MG/DL (70-100); POTASSIUM SERUM 5.1 MEQ/L (3.5-5.1); SODIUM LEVEL 137 MEQ/L (136-145)
[2020-08-07] MEDS: DOXYCYCLINE HYCLATE 100MG TABLET PO SCH (08:12)
[2020-08-07 14:00] VITALS: BP 106/70
--- NOTE | 2020-08-07 15:45 | IPNPDOC ---
Text Note Date of Service The patient was seen on 08/07/20. NOTE Hospitalist Progress Note Subjective: Continues to be severely short of breath with any sort of exertion, although he does feel quite well when he is at rest. Otherwise, he does not have any specific complaints today. Objective: General: Awake, alert, oriented 3. He is in no acute distress. HEENT: Head normocephalic, atraumatic, sclera are nonicteric. Hearing is grossly intact to conversation. Respiratory: Diminished lung sounds throughout, although faint expiratory wheezes are noted on and expiration in all lung dowell. Cardiovascular: Also has diminished heart sounds, but appears to have regular rate and rhythm, with no rubs, gallops, or murmur. Abdomen: Soft, nontender, nondistended, no hepatosplenomegaly appreciated. Bowel sounds present. Extremities: 2+ pulses in the radial and dorsalis pedis bilaterally. No evidence of clubbing or cyanosis. Assessment: Acute respiratory failure with hypoxia Acute lower respiratory infection secondary to rhinovirus infection Acute exacerbation of COPD Hyperlipidemia Plan: Clinically he does appear to be improving. Oxygen continues to be weaned down, currently only on 1 L nasal cannula, he does not wear oxygen at home. Since his lower respiratory infection is known to be caused by virus, antibiotics will be discontinued at this time. We will switch from IV methylprednisolone to prednisone today as well, and wean down from 40 mg every 8 hours to 40 mg twice a day. Advair has artery been restarted. Continue with nebulizers scheduled every 4 hours, and every 2 hours on an as-needed basis. Will have him evaluated by physical therapy due to his significant dyspnea. VS,Malcolmbone, I+O VS, Fishbone, I+O Laboratory Tests 08/07/20 06:49 Vital Signs Date Time Temp Pulse Resp B/P (MAP) Pulse Ox O2 Delivery O2 Flow Rate FiO2 08/07/20 14:00 98.7 99 23 106/70 (82) 94 Nasal Cannula 08/07/20 09:00 1.0 I&O- Last 24 Hours up to 6 AM 08/07/20 06:00 Intake Total 1650 ml Output Total 975 ml Balance 675 ml MALOU HEAD DO Aug 07, 2020 15:45
[2020-08-07] MEDS: ENOXAPARIN 40MG/0.4ML SYRINGE (J1650 PER 10MG) SC SCH (21:55)
[2020-08-07] MEDS: predniSONE 20 MG TAB PO SCH (21:56)
[2020-08-07] MEDS: FAMOTIDINE 20 MG TAB PO SCH (21:56)
[2020-08-07 22:00] VITALS: BP 115/83
[2020-08-08] MEDS: IPRATROPIUM 0.5MG/ALBUTEROL 2.5MG INH SOL UD 3ML (DUONEB) NEB SCH ×6 (03:21→23:13)
[2020-08-08 06:00] VITALS: BP 109/80
[2020-08-08 06:25] LABS: HEMATOCRIT 42.1 % (42.0-52.0); HEMOGLOBIN 14.3 g/dl (13.5-17.5); MEAN CORPUSCULAR HEMOGLOBIN 30.7 pg (27.0-33.0); MEAN CORPUSCULAR VOLUME 90.3 fl (80.0-96.0); PLATELET COUNT, AUTOMATED 442 10^3/uL (150-450); RED BLOOD COUNT 4.66 10^6/uL (4.30-6.10); WHITE BLOOD COUNT 17.3 10^3/uL (4.0-10.0)
[2020-08-08 06:35] LABS: BLOOD UREA NITROGEN 15 MG/DL (7-18); CALCIUM LEVEL 8.8 MG/DL (8.8-10.2); CARBON DIOXIDE LEVEL 28 MEQ/L (21-32); CHLORIDE LEVEL 102 MEQ/L (98-107); CREATININE FOR GFR 0.87 MG/DL (0.70-1.30); GLOMERULAR FILTRATION RATE > 60.0 (>49); GLUCOSE, FASTING 147 MG/DL (70-100); POTASSIUM SERUM 4.9 MEQ/L (3.5-5.1); SODIUM LEVEL 135 MEQ/L (136-145)
[2020-08-08] MEDS: ADVAIR HFA 230/21MCG INHALER INH SCH ×2 (07:16→19:17)
[2020-08-08] MEDS: predniSONE 20 MG TAB PO SCH ×2 (09:24→21:29)
[2020-08-08 14:00] VITALS: BP 112/93
--- NOTE | 2020-08-08 14:33 | IPNPDOC ---
Text Note Date of Service The patient was seen on 08/08/20. NOTE Hospitalist Progress Note Subjective: The patient is in good spirits this morning, although he continues to be frustrated by his shortness of breath with exertion. He also does continue to require oxygen supplementation to maintain his saturations. He is not on oxygen at home, and this seems to be discouraging for him. He would like to be getting better faster. Otherwise, the remainder of his review of systems is negative. Objective: General: Awake, alert, oriented 3. Not in any acute distress. HEENT: Head normocephalic, atraumatic, sclera are nonicteric. Hearing is grossly intact to conversation. Respiratory: Diminished lung sounds throughout, but end expiratory wheezes are noted in all lung dowell. Cardiovascular: Regular rate and rhythm, with no rubs, gallops, or murmur. Abdomen: Soft, nontender, nondistended, no hepatosplenomegaly appreciated. Bowel sounds present. Extremities: 2+ pulses in the radial and dorsalis pedis bilaterally. No evidence of clubbing or cyanosis. Assessment: Acute respiratory failure with hypoxia Acute lower respiratory infection secondary to rhinovirus infection Acute exacerbation of COPD Hyperlipidemia Physical Deconditioning Plan: Not much improvement clinically since yesterday. Will start him on chest PT with nebulizers, incentive spirometry, and Acapella. Continue with nebulizers scheduled and as needed. Continue Advair. Continue prednisone. Also continue working with physical therapy for rehabilitation from his deconditioned state. VS,Fishbone, I+O VS, Fishbone, I+O Laboratory Tests 08/08/20 05:57 Vital Signs Date Time Temp Pulse Resp B/P (MAP) Pulse Ox O2 Delivery O2 Flow Rate FiO2 08/08/20 14:00 97.8 115 20 112/93 (99) 92 Nasal Cannula 1.0 I&O- Last 24 Hours up to 6 AM 08/08/20 06:00 Intake Total 1470 ml Output Total 675 ml Balance 795 ml MALOU HEAD DO Aug 08, 2020 14:33
[2020-08-08] MEDS: ENOXAPARIN 40MG/0.4ML SYRINGE (J1650 PER 10MG) SC SCH (21:30)
[2020-08-08] MEDS: FAMOTIDINE 20 MG TAB PO SCH (21:30)
[2020-08-08 22:00] VITALS: BP 128/64
[2020-08-09] MEDS: IPRATROPIUM 0.5MG/ALBUTEROL 2.5MG INH SOL UD 3ML (DUONEB) NEB SCH ×5 (03:12→19:46)
[2020-08-09 06:00] VITALS: BP 125/91
[2020-08-09 06:07] LABS: HEMATOCRIT 41.5 % (42.0-52.0); MEAN CORPUSCULAR HEMOGLOBIN 30.5 pg (27.0-33.0); MEAN CORPUSCULAR HGB CONC 33.7 g/dl (32.0-36.5); MEAN CORPUSCULAR VOLUME 90.4 fl (80.0-96.0); PLATELET COUNT, AUTOMATED 456 10^3/uL (150-450); RED BLOOD COUNT 4.59 10^6/uL (4.30-6.10)
[2020-08-09 06:28] LABS: BLOOD UREA NITROGEN 15 MG/DL (7-18); CARBON DIOXIDE LEVEL 27 MEQ/L (21-32); CHLORIDE LEVEL 102 MEQ/L (98-107); CREATININE FOR GFR 0.77 MG/DL (0.70-1.30); GLOMERULAR FILTRATION RATE > 60.0 (>49); GLUCOSE, FASTING 149 MG/DL (70-100); POTASSIUM SERUM 4.8 MEQ/L (3.5-5.1); SODIUM LEVEL 135 MEQ/L (136-145)
[2020-08-09] MEDS: ADVAIR HFA 230/21MCG INHALER INH SCH ×2 (07:36→19:46)
[2020-08-09] MEDS: predniSONE 20 MG TAB PO SCH ×2 (09:58→22:05)
--- NOTE | 2020-08-09 11:22 | IPNPDOC ---
Text Note Date of Service The patient was seen on 08/09/20. NOTE Hospitalist Progress Note Subjective: Patient reports that he is actually feeling better this morning. He is very appreciative of the incentive spirometry and the Acapella, he believes that they are helping. He states that he can take a deeper breath now than he had before. He still isn't short of breath with just about any exertion, but he also he is making notable improvement, whereas he had not been doing so for the past few days. Otherwise, he does not have any other acute complaints, and the remainder of his review of systems negative. Objective: General: Awake, alert, oriented 3. Not in any acute distress. HEENT: Head normocephalic, atraumatic, sclera are nonicteric. Hearing is grossly intact to conversation. Respiratory: Diminished lung sounds throughout, I cannot appreciate any wheezing today. Cardiovascular: Regular rate and rhythm, with no rubs, gallops, or murmur. Abdomen: Soft, nontender, nondistended, no hepatosplenomegaly appreciated. Bowel sounds present. Extremities: 2+ pulses in the radial and dorsalis pedis bilaterally. No evidence of clubbing or cyanosis. Assessment: Acute respiratory failure with hypoxia Acute lower respiratory infection secondary to rhinovirus infection Acute exacerbation of COPD Hyperlipidemia Physical Deconditioning Plan: Clinically does appear to be doing better, still unable to wean off of oxygen completely, and still has significant dyspnea with exertion. Continue with Acapella and incentive spirometry. Continue with nebulizers scheduled and as needed. Continue Advair. Continue prednisone. Also continue working with physical therapy for rehabilitation from his deconditioned state. He reports that his nebulizer machine at home is broken, upon discharge will need to fill out a prescription for him so that he may get a replacement. VS,Fishbone, I+O VS, Fishbone, I+O Laboratory Tests 08/09/20 05:40 Vital Signs Date Time Temp Pulse Resp B/P (MAP) Pulse Ox O2 Delivery O2 Flow Rate FiO2 08/09/20 06:00 98.5 110 20 125/91 (102) 92 Nasal Cannula 1.0 I&O- Last 24 Hours up to 6 AM 08/09/20 06:00 Intake Total 1900 ml Output Total 100 ml Balance 1800 ml MALOU HEAD DO Aug 09, 2020 11:22
[2020-08-09 15:00] VITALS: BP 128/90
[2020-08-09 22:00] VITALS: BP 129/89
[2020-08-09] MEDS: FAMOTIDINE 20 MG TAB PO SCH (22:04)
[2020-08-09] MEDS: ENOXAPARIN 40MG/0.4ML SYRINGE (J1650 PER 10MG) SC SCH (22:05)
[2020-08-10] MEDS: IPRATROPIUM 0.5MG/ALBUTEROL 2.5MG INH SOL UD 3ML (DUONEB) NEB SCH ×7 (00:16→23:19)
[2020-08-10 06:00] VITALS: BP 124/72
[2020-08-10 06:28] LABS: HEMATOCRIT 42.4 % (42.0-52.0); HEMOGLOBIN 13.9 g/dl (13.5-17.5); MEAN CORPUSCULAR HEMOGLOBIN 29.6 pg (27.0-33.0); MEAN CORPUSCULAR HGB CONC 32.8 g/dl (32.0-36.5); MEAN CORPUSCULAR VOLUME 90.2 fl (80.0-96.0); PLATELET COUNT, AUTOMATED 481 10^3/uL (150-450); WHITE BLOOD COUNT 18.7 10^3/uL (4.0-10.0)
[2020-08-10 06:50] LABS: BLOOD UREA NITROGEN 13 MG/DL (7-18); CALCIUM LEVEL 9.3 MG/DL (8.8-10.2); CARBON DIOXIDE LEVEL 28 MEQ/L (21-32); CHLORIDE LEVEL 100 MEQ/L (98-107); CREATININE FOR GFR 0.83 MG/DL (0.70-1.30); GLOMERULAR FILTRATION RATE > 60.0 (>49); GLUCOSE, FASTING 162 MG/DL (70-100); SODIUM LEVEL 133 MEQ/L (136-145)
[2020-08-10] MEDS: ADVAIR HFA 230/21MCG INHALER INH SCH ×2 (07:39→19:55)
[2020-08-10] MEDS: predniSONE 20 MG TAB PO SCH ×2 (08:49→21:59)
[2020-08-10 14:00] VITALS: BP 126/80
--- NOTE | 2020-08-10 16:17 | IPNPDOC ---
Text Note Date of Service The patient was seen on 08/10/20. NOTE Hospitalist Progress Note Subjective: Patient reports that he he is feeling better every day. He has been able to ambulate with physical therapy and with the nurses a few times during the day. Apparently he has been able to do it without oxygen, but his O2 stats still continued to drop on exertion, nevertheless the patient says he is not as dyspneic. He reports that the Acapella and incentive spirometry have been helping him cough up quite a bit of mucus as well. Otherwise, the remainder of his review systems is negative. Objective: General: Awake, alert, oriented 3. Not in any acute distress. HEENT: Head normocephalic, atraumatic, sclera are nonicteric. Hearing is grossly intact to conversation. Respiratory: Somewhat diminished, however I can actually appreciate decent airflow today. No wheezes, rales, rhonchi. Cardiovascular: Regular rate and rhythm, with no rubs, gallops, or murmur. Abdomen: Soft, nontender, nondistended, no hepatosplenomegaly appreciated. Bowel sounds present. Extremities: 2+ pulses in the radial and dorsalis pedis bilaterally. No evidence of clubbing or cyanosis. Assessment: Acute respiratory failure with hypoxia Acute lower respiratory infection secondary to rhinovirus infection Acute exacerbation of COPD Hyperlipidemia Physical Deconditioning Leukocytosis Plan: Continue working with physical therapy until he is safe for discharge. He is not on oxygen at home, and since this acute episode was caused by a viral pneumonia, is expected that his lungs will recover and he will not require oxygen on discharge. Continue with Acapella and incentive spirometry. Continue with nebulizers scheduled and as needed. Continue Advair. Continue prednisone, slowly tapering down Also continue working with physical therapy for rehabilitation from his deconditioned state. Disposition I'm hopeful that we may anticipate discharge within the next 1-2 days. He will be ready for discharge when he is able to maintain his saturations without oxygen supplementation. He will need a prescription for a new nebulizer machine, and a new rolling walker upon discharge. VS,Fishbone, I+O VS, Fishbone, I+O Laboratory Tests 08/10/20 06:09 Vital Signs Date Time Temp Pulse Resp B/P (MAP) Pulse Ox O2 Delivery O2 Flow Rate FiO2 08/10/20 09:00 1.0 08/10/20 06:00 97.8 103 20 124/72 (48) 94 Nasal Cannula I&O- Last 24 Hours up to 6 AM 08/10/20 06:00 Intake Total 1870 ml Balance 1870 ml MALOU HEAD DO Aug 10, 2020 16:17
[2020-08-10] MEDS: FAMOTIDINE 20 MG TAB PO SCH (21:58)
[2020-08-10] MEDS: ENOXAPARIN 40MG/0.4ML SYRINGE (J1650 PER 10MG) SC SCH (21:59)
[2020-08-10 22:00] VITALS: BP 118/86
[2020-08-11] MEDS: IPRATROPIUM 0.5MG/ALBUTEROL 2.5MG INH SOL UD 3ML (DUONEB) NEB SCH ×2 (02:49→08:00)
[2020-08-11 06:00] VITALS: BP 120/88
[2020-08-11 06:50] LABS: HEMATOCRIT 44.4 % (42.0-52.0); HEMOGLOBIN 14.7 g/dl (13.5-17.5); MEAN CORPUSCULAR HEMOGLOBIN 29.9 pg (27.0-33.0); MEAN CORPUSCULAR HGB CONC 33.1 g/dl (32.0-36.5); MEAN CORPUSCULAR VOLUME 90.4 fl (80.0-96.0); PLATELET COUNT, AUTOMATED 519 10^3/uL (150-450); RED BLOOD COUNT 4.91 10^6/uL (4.30-6.10)
[2020-08-11 07:17] LABS: BLOOD UREA NITROGEN 17 MG/DL (7-18); CALCIUM LEVEL 9.1 MG/DL (8.8-10.2); CARBON DIOXIDE LEVEL 29 MEQ/L (21-32); CHLORIDE LEVEL 99 MEQ/L (98-107); CREATININE FOR GFR 0.84 MG/DL (0.70-1.30); GLOMERULAR FILTRATION RATE > 60.0 (>49); GLUCOSE, FASTING 117 MG/DL (70-100); POTASSIUM SERUM 4.5 MEQ/L (3.5-5.1); SODIUM LEVEL 132 MEQ/L (136-145)
[2020-08-11] MEDS: ADVAIR HFA 230/21MCG INHALER INH SCH (08:17)
[2020-08-11] MEDS: predniSONE 20 MG TAB PO SCH (08:54)
[2020-08-11] MEDS ORDERED: ASPIRIN 81 MG ENTERIC TAB PO SCH (09:00)
[2020-08-11] MEDS ORDERED: FAMO20TA PO (09:56)
[2020-08-11] MEDS ORDERED: ALBU83IN NEB (09:56)
[2020-08-11] MEDS ORDERED: PARIMIS30 XX (09:56)
[2020-08-11] MEDS ORDERED: PRED10TA2 PO (09:56)
--- NOTE | 2020-08-11 11:40 | DS.PDOC ---
Discharge Summary General Date of Admission Aug 05, 2020 at 13:14 Date of Discharge 08/11/2020 Discharge Summary PROCEDURES PERFORMED DURING STAY: [None]. ADMITTING DIAGNOSES / DISCHARGE DIAGNOSES: Acute respiratory failure with hypoxia Acute lower respiratory infection secondary to rhinovirus infection Acute exacerbation of COPD DLP Physical Deconditioning Leukocytosis- likely 2/2 corticosteroids DVT prophylaxis COMPLICATIONS/CHIEF COMPLAINT: Shortness of breath HISTORY OF PRESENT ILLNESS: Patient is a 59-year-old male with a PMHx of COPD, Bipolar disorder, OA, Chronic back pain 2/2 DDD (s/p injury from fall), ADHD, DLP, who presented to the hospital with complaints shortness of breath associated with congestion and increased sputum production. Patient was admitted to hospital service for COPD exacerbation. HOSPITAL COURSE: Acute respiratory failure with hypoxia / Acute lower respiratory infection secondary to rhinovirus infection / Acute exacerbation of COPD - Clinically patient is at significant improvement of his breathing - Physical without any wheezing appreciated - Saturating well on room air - CXR 08/05: Increased interstitial markings in the lung bases bilaterally lik alden on the basis of COPD and interstitial fibrosis, although some degree of interstitial edema cannot totally be excluded. No consolidating infiltrate. - c/w inhaled therapy as ordered - Patient has already been transitioned to prednisone orally; will continue to taper as an outpatient - Will have outpatient follow-up with primary care provider within the next 7 days Hyperlipidemia - c/w Atorvastatin on discharge Physical Deconditioning - Cleared PT Leukocytosis- likely 2/2 corticosteroids - c/w taper as an outpatient DVT prophylaxis - c/w Lovenox DISCHARGE MEDICATIONS: Please see below. ALLERGIES: Please see below. PHYSICAL EXAMINATION ON DISCHARGE: Vitals (See below) General: Lying in bed, appears comfortable, awake / alert HEENT: NC, AT CVS: +S1S2 Lungs: Fair air entry b/l, no visual wheezing, rhonchi or rales Abdomen: Soft, ND, NT Extremities: - Edema, - Calf tenderness LABORATORY DATA: Please see below. ACTIVITY: [As tolerated]. DISCHARGE PLAN: Follow-up with primary care provider within the next 7 days Remain compliant with treatment plan and medications Return to the ER if you experience any problems DISPOSITION: Home with services DISCHARGE CONDITION: [Stable]. TIME SPENT ON DISCHARGE: 35 minutes Vital Signs/I&Os Vital Signs Date Time Temp Pulse Resp B/P (MAP) Pulse Ox O2 Delivery O2 Flow Rate FiO2 08/11/20 06:00 97.7 98 20 120/88 (99) 91 Room Air 08/10/20 21:00 1.0 I&O- Last 24 Hours up to 6 AM 08/11/20 06:00 Intake Total 1895 ml Balance 1895 ml Laboratory Data Labs 24H Laboratory Tests 2 08/11/20 06:26: Nucleated Red Blood Cells % (auto) 0.0, Anion Gap 4L, Glomerular Filtration Rate > 60.0, Calcium Level 9.1 CBC/BMP Laboratory Tests 08/11/20 06:26 Microbiology Microbiology 08/05/20 Respiratory Virus Panel (PCR) ([facility]) - Final, Complete Human Rhinovirus/Enterovirus Discharge Medications Scheduled Atorvastatin Calcium (Atorvastatin Calcium) 20 Mg Tablet, 20 MG PO DAILY, (Reported) Famotidine (Famotidine) 20 Mg Tablet, 20 MG PO QHS Meloxicam (Meloxicam) 15 Mg Tablet, 15 MG PO DAILY, (Reported) Prednisone (Prednisone) 10 Mg Tablet, 10 MG PO TAPER Take 4 tabs daily x 3 days, then 3 tabs daily x 3 days, then 2 tabs daily x 3 days, then 1 tab daily x 3 days and stop Roflumilast (Daliresp) 250 Mcg Tablet, 250 MCG PO DAILY, (Reported) Salmeterol/Fluticasone (Advair 500-50 Diskus) 1 Each Blst.w.dev, 1 PUFF INH BID, (Reported) Scheduled PRN Albuterol Sulf (Albuterol Sulfate) 2.5 Mg/3 Ml Vial.neb, 1 VIAL NEB Q4HP PRN for wheezing Albuterol Sulfate (Albuterol Sulfate Hfa) 8.5 Gm Hfa.aer.ad, 2 PUFFS INH Q4H PRN for SOB/COUGH, (Reported) Allergies Coded Allergies: No Known Allergies (Verified , 03/08/18) FORREST LARA MD Aug 11, 2020 11:39
== END 2020-08-11 12:07 | disposition home or self-care (01) | DRG 189 ==
LOC: M ED 08:14 → EDBD 08:14 → M ED INP 13:14 → ENRESERV 13:51 → M MSPAV 15:01
PROVIDERS: ADMIT Internal Medicine Nephrology; ATTEND Internal Medicine
DX: J96.01 Acute respiratory failure with hypoxia (principal); J44.1 Chronic obstructive pulmonary disease with (acute) exacerbation; B34.8 Other viral infections of unspecified site; D72.829 Elevated white blood cell count, unspecified; F31.9 Bipolar disorder, unspecified; M19.90 Unspecified osteoarthritis, unspecified site; E78.5 Hyperlipidemia, unspecified; Z79.899 Other long term (current) drug therapy; Z87.891 Personal history of nicotine dependence; F12.90 Cannabis use, unspecified, uncomplicated

== ENCOUNTER → 2020-10-26 | Outpatient (REF) | payer MEDICARE, MEDICAID ==
[~2020-10-26] MED LIST changes: +ADV500INH INH; +ALBU8.5H INH; +ALBU83IN NEB; +ATOR1TAB21 PO; +DALI250T PO; +FAMO20TA PO; +MELO15TA28 PO; +PARIMIS30 XX
[2020-10-26 16:01] LABS: HEMOGLOBIN A1c 5.5 %
[2020-10-26 16:09] LABS: ALBUMIN 4.3 GM/DL (3.2-5.2); ALT/SGPT 24 U/L (12-78); BILIRUBIN,TOTAL 0.3 MG/DL (0.2-1.0); BLOOD UREA NITROGEN 10 MG/DL (7-18); CALCIUM LEVEL 10.2 MG/DL (8.8-10.2); CARBON DIOXIDE LEVEL 28 MEQ/L (21-32); CHLORIDE LEVEL 104 MEQ/L (98-107); CHOLESTEROL LEVEL 154 MG/DL (<200); CHOLESTEROL RISK RATIO 2.333 (<5); CREATININE FOR GFR 0.87 MG/DL (0.70-1.30); GLOMERULAR FILTRATION RATE > 60.0 (>49); GLUCOSE, FASTING 117 MG/DL (70-100); HDL CHOLESTEROL 66 MG/DL (>40); LDL CHOLESTEROL 78 MG/DL (<100); NON-HDL-C 88 MG/DL; POTASSIUM SERUM 4.7 MEQ/L (3.5-5.1); SODIUM LEVEL 137 MEQ/L (136-145); TOTAL PROTEIN 7.3 GM/DL (6.4-8.2); TRIGLYCERIDES LEVEL 52 MG/DL (<150)
[2020-10-26 16:25] LABS: TOTAL 25(OH) VITAMIN D 25.7 NG/ML (30.0-100.0)
== END ==
LOC: M SFHCPLAZ 14:10
PROVIDERS: ATTEND Nurse Practitioner Adult Health
DX: I25.10 Atherosclerotic heart disease of native coronary artery without angina pectoris (principal); E55.9 Vitamin D deficiency, unspecified; Z13.220 Encounter for screening for lipoid disorders; Z13.1 Encounter for screening for diabetes mellitus; Z79.899 Other long term (current) drug therapy

== ENCOUNTER 2021-05-20 14:12 | Inpatient (IN) | payer MEDICARE, MEDICAID ==
[~2021-05-20] VITALS: Ht 167.6 cm; Wt 60.4 kg
[2021-05-20] MEDS ORDERED: IPRATROPIUM 0.5MG/ALBUTEROL 2.5MG INH SOL UD 3ML (DUONEB) NEB ONE ×2 (14:30)
[2021-05-20 14:50] LABS: HEMATOCRIT 47.6 % (42.0-52.0); HEMOGLOBIN 16.3 g/dl (13.5-17.5); MEAN CORPUSCULAR HEMOGLOBIN 29.7 pg (27.0-33.0); MEAN CORPUSCULAR HGB CONC 34.2 g/dl (32.0-36.5); MEAN CORPUSCULAR VOLUME 86.9 fl (80.0-96.0); PLATELET COUNT, AUTOMATED 196 10^3/uL (150-450); RED BLOOD COUNT 5.48 10^6/uL (4.30-6.10); WHITE BLOOD COUNT 11.7 10^3/uL (4.0-10.0)
--- NOTE | 2021-05-20 14:56 | REP ---
INDICATION: SOB. COMPARISON: Portable chest dated 08/05/2020. TECHNIQUE: Portable AP chest with the patient upright. FINDINGS: The lung dowell are hyperinflated with crowding of the interstitial markings in the lower lung zones, compatible with COPD, unchanged. The costophrenic angles are effaced bilaterally, however, this is unchanged. This is nonspecific and could represent small bilateral pleural effusions or be secondary to the hyperinflation. Cardiac size is normal. The ananya, mediastinum, and skeletal structures are unremarkable. IMPRESSION: There are no acute cardiopulmonary findings. There are chronic findings as described. <Electronically signed by Vinh Zarate > 05/20/21 [id number]
[2021-05-20 15:16] LABS: BLOOD UREA NITROGEN 13 MG/DL (7-18); CALCIUM LEVEL 7.8 MG/DL (8.8-10.2); CARBON DIOXIDE LEVEL 25 MEQ/L (21-32); CHLORIDE LEVEL 100 MEQ/L (98-107); CK-MB VALUE MASS 5.3 NG/ML (<3.6); CPK CREATINE PHOSPHOKINASE 643 U/L (39-308); CREATININE FOR GFR 1.11 MG/DL (0.70-1.30); GLOMERULAR FILTRATION RATE > 60.0 (>49); GLUCOSE, FASTING 151 MG/DL (70-100); MAGNESIUM LEVEL 1.9 MG/DL (1.8-2.4); MB/CK RELATIVE INDEX 0.82 (< OR =4); NT-PRO BNP 313 PG/ML (<125); POTASSIUM SERUM 4.2 MEQ/L (3.5-5.1); SODIUM LEVEL 132 MEQ/L (136-145); TROPONIN I 0.07 NG/ML (< 0.10)
[2021-05-20 15:22] LABS: ATYPICAL LYMPH 7 % (0-5); LYMPHOCYTES 8 % (16-44); MONOCYTES 5 % (0-5); NEUTROPHILS 77 % (28-66)
[2021-05-20 15:23] LABS: PLATELET ESTIMATE NORMAL (NORMAL)
[2021-05-20] MEDS ORDERED: methylPREDNISolone 125MG 2ML VIAL IV ONE (16:45)
[2021-05-20] MEDS ORDERED: ISOVUE-370 76% 100ML VIAL As Ordered ONE (17:26)
[2021-05-20] MEDS ORDERED: FAMO20TA5 PO (17:55)
[2021-05-20] MEDS ORDERED: HOME MED LIST COMPLETE! XX SCH (18:00)
[2021-05-20] MEDS ORDERED: LEVALBUTEROL 1.25 MG/0.5 ML CONCENTRATE NEB INH PRN (18:05)
[2021-05-20] MEDS ORDERED: ACETAMINOPHEN TAB 650MG DOSE (2X325MG) PO PRN (18:05)
[2021-05-20 18:14] LABS: MB/CK RELATIVE INDEX 0.9 (< OR =4); RSV AMPLIFICATION NEGATIVE (NEGATIVE); TROPONIN I 0.17 NG/ML (< 0.10)
--- NOTE | 2021-05-20 18:14 | HPEPDOC ---
[facility] Medical History & Physical Date of Admission May 20, 2021 Date of Service: May 20, 2021 History and Physical Chief complaint: Who presented to the emergency room with shortness breath History of present illness: Patient is a 60-year-old male with a PMHx of COPD (not oxygen or corticosteroid dependent), DLP, Hypothyroidism, OA, Chronic back pain (2/2 DDD), Hx of Polysubstance abuse, Bipolar disorder / ADHD, who presented to the ER with complaints of shortness breath. Patient reports that hes been having shortness of breath for last 4 days. Reports some productive nature to his cough, sputum described as brownish/yellowish denies any recent fevers or chills. Denies chest pain or palpitations. Patient does not use any oxygen at home. However, in the emergency room. He is currently on 2 L of nasal cannula oxygen. Patient denies any nausea, vomiting, abdominal pain, did report some diarrhea with loose bowel movements. Denies any urinary discomfort. Reports his appetite is decreased, but is unsure of any changes in his weight. Past Medical History: COPD (not oxygen or corticosteroid dependent) DLP Hypothyroidism OA Chronic back pain (2/2 DDD) Hx of Polysubstance abuse Bipolar disorder / ADHD Past Surgical History: Right inguinal hernia repair age 11 Left hand surgery 1999 Left inguinal hernia repair 2011 Left knee arthroscopy 3 Right inguinal/femoral hernia repair 2018 Right leg fracture Allergies: See below Medications: See below Family History: - Father at the age of 71. Mother with a history of stroke Social History: - Denies the use of illicit drugs currently; quit the use of alcohol, has quit smoking (5 months ago) but was a smoker of 30 years at one pack per day - Denies recent travel or sick contacts - Lives alone - Occupation; patient used to work as a [employer] Review of Systems: 10 point review of systems complete, all negative otherwise stated in HPI Physical exam: - Vitals: BP [105/61], HR [129], RR [22], Sat [92%NC2L], Temp [99.3F] - General: Lying in bed, Appears short of breath, AAOx3 - HEENT: NC, AT, PERRLA - CVS: Tachycardic, +S1S2 - Lungs: Fair air entry bilaterally, No appreciable rales / rhonchi; diffuse wheezing appreciated bilaterally - Abdomen: Soft, Non-distended, Non-tender - Extremities: No lower extremity edema, No calf tenderness - Neuro: No focal motor or sensory deficit - Skin: No visible rashes Labs: See below Imaging: CXR 05/20: There are no acute cardiopulmonary findings. There are chronic findings as described. EKG: See below Assessment and Plan: Acute hypoxic respiratory failure - likely 2/2 acute exacerbation of COPD; possi cuate 2/2 PE - Clinically patient presented to the emergency room with complaint of shortness of breath 4 days - Patient has reported associated productive cough with brown/yellow sputum - Patient is hemodynamically stable, however, is tachycardic - No fevers ER - Imaging noted above - CT angiogram has been completed however report remains pending - Will start IV Solumedrol and inhaled therapy as ordered - Will start acapella / incentive spirometry / Mucinex COPD - Patient is not oxygen or corticosteroid dependent - See above Tachycardia - Denies any CP or palpitations - EKG reviewed; dose reveal sinus rhythm - Troponin x 1 set negative; will follow trend - Will c/w Telemetry monitoring Hyponatremia - likely 2/2 hypotonic hypovolemic etiology - Hx of intermittent mild hyponatremia since 2011 - Will check serum / urine osmolality / thyroid function / cortisol baseline / urine electrolytes - Will provide gentle IV fluid hydration Cr elevated from baseline - Cr baseline of 0.8 - Will start IV fluid hydration DLP - c/w Atorvastatin Hypothyroidism - Currently not on medications - Will check TSH / Free T4 / Total T3 OA / Chronic back pain (2/2 DDD) - c/w Tylenol PRN Hx of Polysubstance abuse - Patient reports that he is abstain from any drug use Bipolar disorder / ADHD - Patient is currently not on any medications DVT prophylaxis - Will start Heparin Vital Signs Vital Signs Date Time Temp Pulse Resp B/P (MAP) Pulse Ox O2 Delivery O2 Flow Rate FiO2 05/20/21 17:27 122 20 93 Nasal Cannula 2.0 05/20/21 17:16 103/74 (84) 05/20/21 14:26 99.3 Laboratory Data Labs 24H Laboratory Tests 2 05/20/21 14:33: Neutrophils (%) (Auto) , Nucleated Red Blood Cells % (auto) 0.0, Neutrophils 77H, Band Neutrophils 3, Lymphocytes (Manual) 8L, Monocytes (Manual) 5, Atypical Lymphocytes 7H, Red Blood Cell Morphology NORMAL, Platelet Estimate NORMAL, Anion Gap 7L, Glomerular Filtration Rate > 60.0, Calcium Level 7.8L, Magnesium Level 1.9, Total Creatine Kinase 643H, Creatine Kinase MB 5.3H, Creatine Kinase MB Relative Index 0.82, Troponin I 0.07, YC-Zph-F-Type Natriuretic Peptide 313H 05/20/21 15:17: POC pH (Misc Panel) 7.460H, POC Base Excess (Misc Panel) -2.0, POC Saturated Percent O2 (Misc) 89L, POC pO2 (Misc Panel) 52.0L, POC pCO2 (Misc Panel) 30.7L, POC HCO3 (Misc Panel) 21.8L, POC Total CO2 (Misc Panel) 23.0 05/20/21 17:24: CBC/BMP Laboratory Tests 05/20/21 14:33 Home Medications Scheduled Atorvastatin Calcium (Atorvastatin Calcium) 20 Mg Tablet, 20 MG PO DAILY Famotidine (Famotidine) 20 Mg Tablet, 20 MG PO QHS Roflumilast (Daliresp) 250 Mcg Tablet, 250 MCG PO DAILY Salmeterol/Fluticasone (Advair 500-50 Diskus) 1 Each Blst.w.dev, 1 PUFF INH BID Scheduled PRN Albuterol Sulf (Albuterol Sulfate) 2.5 Mg/3 Ml Vial.neb, 1 VIAL NEB Q4HP PRN for wheezing Albuterol Sulfate (Albuterol Sulfate Hfa) 8.5 Gm Hfa.aer.ad, 2 PUFFS INH Q4H PRN for SOB/COUGH Allergies Coded Allergies: No Known Allergies (Verified , 03/08/18) FORREST LARA MD May 20, 2021 18:14
[2021-05-20] MEDS ORDERED: REMDESIVIR 200 MG in NS 250 ML IV ONE (19:00)
--- NOTE | 2021-05-20 19:56 | REPVR ---
PROCEDURE INFORMATION: Exam: CTA Chest With Contrast Exam date and time: 05/20/2021 5:50 PM Age: 60 years old Clinical indication: Pain; Other: Rule outy pe; Chest pressure TECHNIQUE: Imaging protocol: Computed tomographic angiography of the chest with contrast. 3D rendering (Not supervised by radiologist): MIP and/or 3D reconstructed images were created by the technologist. Radiation optimization: All CT scans at this facility use at least one of these dose optimization techniques: automated exposure control; mA and/or kV adjustment per patient size (includes targeted exams where dose is matched to clinical indication); or iterative reconstruction. Contrast material: ISOVUE 370; Contrast volume: 75 ml; Contrast route: INTRAVENOUS (IV); COMPARISON: CT ANGIO CHEST 02/06/2018 3:36 PM FINDINGS: Pulmonary arteries: No CT evidence of acute pulmonary embolism. Aorta: No CT evidence of acute thoracic aortic dissection, thoracic aneurysm or acute intramural thoracic aortic hematoma. Veins: There is retrograde IV contrast reflux from the right atrium into the IVC and hepatic veins. Lungs: Bilateral pulmonary hyperinflation, secondary to underlying severe centrilobular emphysema. Pleural spaces: Unremarkable. No pneumothorax. No pleural effusion. Heart: The heart size is normal. A moderate-size pericardial effusion is present however. Normal size pulmonary vasculature. Mild coronary artery calcification is present. Lymph nodes: A number of small lymph nodes are present in the mediastinum particularly in the infracarinal region. Bones/joints: Mild chronic degenerative anterior vertebral body endplate osteophytic disease is seen in the mid to lower thoracic spine. Soft tissues: Unremarkable. IMPRESSION: 1. No CT evidence of acute pulmonary embolism. 2. No CT evidence of acute thoracic aortic dissection, thoracic aneurysm or acute intramural thoracic aortic hematoma. 3. The heart size is normal. A moderate-size pericardial effusion is present however. Normal size pulmonary vasculature. Mild coronary artery calcification is present. 4. There is retrograde IV contrast reflux from the right atrium into the IVC and hepatic veins. This can be a normal variant due to the high volume IV contrast injection rates typically employed for a CT pulmonary angiogram, however, it can also be seen in right heart strain and various types of right heart disease, such as pulmonary hypertension, tricuspid regurgitation and right ventricular systolic dysfunction. 5. A number of small lymph nodes are present in the mediastinum particularly in the infracarinal region. 6. Bilateral pulmonary hyperinflation, secondary to underlying severe centrilobular emphysema. 7. Mild chronic degenerative anterior vertebral body endplate osteophytic disease is seen in the mid to lower thoracic spine. Electronically signed by: Dmitriy Wood On 05/20/2021 19:56:11 PM
[2021-05-20 20:11] LABS: INR 0.98; PROTHROMBIN TIME 13.4 SECONDS (12.7-14.5)
[2021-05-20 20:12] LABS: PARTIAL THROMBOPLASTIN TIME 36.7 SECONDS (25.9-37.0)
[2021-05-20 20:14] LABS: D-DIMER QUANT 1400.03 ng/ml (<500)
[2021-05-20 20:20] LABS: BILIRUBIN,DIRECT 0.1 MG/DL (0.0-0.2); BILIRUBIN,TOTAL 0.3 MG/DL (0.2-1.0); TOTAL PROTEIN 5.9 GM/DL (6.4-8.2)
[2021-05-20 20:26] LABS: FREE T4 1.64 NG/DL (0.76-1.46); THYROID STIMULATING HORMONE 0.368 uIU/ML (0.358-3.740)
[2021-05-20 20:30] LABS: TOTAL T3 74.8 NG/DL (60.0-181.0)
[2021-05-20] MEDS ORDERED: SODIUM CHLORIDE 0.9% INJ 10 ML SYR IV ONE (21:00)
[2021-05-20 21:02] LABS: CORTISOL BASELINE 98.5 UG/DL (4.3-22.4)
--- NOTE | 2021-05-20 21:04 | ECGEPIP ---
[facility] - ED Test Date: 2021-05-20 Pat Name: JAYSON WOODSON Department: Room: - Gender: Male [employer]: NATHEN : 1960 Requested By: LYNDA Snow Order Number: [id number] Reading MD: Kamron Mccain Measurements Intervals [place] Rate: 130 P: 76 [place]: 116 QRS: 98 QRSD: 80 T: 76 QT: 296 QTc: 435 Interpretive Statements Sinus tachycardia Rightward axis rate increased from tracing done 08-05-20 Electronically Signed on 05-20-2021 21:03:34 EDT by Kamron Mccain
[2021-05-20 22:00] VITALS: BP 105/68; O2SAT 93
[2021-05-20] MEDS ORDERED: HEPARIN SOD (PORCINE) 5000UNITS/ML 1ML VIAL/SYRINGE SC SCH (22:00)
[2021-05-20] MEDS: ADVAIR HFA 230/21MCG INHALER INH SCH (23:01)
[2021-05-20] MEDS: guaiFENesin ER 600 MG TAB PO SCH (23:04)
[2021-05-20] MEDS: ENOXAPARIN 30MG/0.3ML SYRINGE (J1650 PER 10MG) SC SCH (23:04)
[2021-05-20] MEDS: FAMOTIDINE 20 MG TAB PO SCH (23:04)
[2021-05-20] MEDS: LEVALBUTEROL 1.25 MG/0.5 ML CONCENTRATE NEB INH SCH (23:05)
[2021-05-20] MEDS: NS 1,000 ML IV SCH (23:07)
[2021-05-20 23:41] LABS: CK-MB VALUE MASS 7.4 NG/ML (<3.6); MB/CK RELATIVE INDEX 1.02 (< OR =4); TROPONIN I 0.13 NG/ML (< 0.10)
[2021-05-21] VITALS (7 sets, daily range): BP systolic 107–133; BP diastolic 62–79; O2SAT 92–94
[2021-05-21] MEDS: methylPREDNISolone 40MG 1ML VIAL IV SCH ×3 (01:07→17:32)
[2021-05-21] MEDS: LEVALBUTEROL 1.25 MG/0.5 ML CONCENTRATE NEB INH SCH ×3 (03:23→07:26)
[2021-05-21] MEDS: NS 1,000 ML IV SCH (06:35)
--- NOTE | 2021-05-21 07:12 | ECHO ---
ECHOCARDIOGRAM DATE OF PROCEDURE: 05/20/2021 REFERRING PHYSICIAN: Dr. Tello INDICATION: Pericardial effusion MEASUREMENTS: IVS 1.0 LV 4.4 LVPW 0.9 Aorta 2.9 LA 2.9 IVC 2.3 FINDINGS: This study is of fair technical quality with somewhat limited visualization. Underlying sinus tachycardia with occasional ventricular ectopy and narrow QRS complex. Normal left ventricle (LV) size with overall normal LV systolic function, I estimated left ventricular ejection fraction (LVEF) approximately 60-65%. No regional wall motion abnormalities are appreciated. Right ventricle is also normal size and systolic function. Both atria appear normal. All four cardiac valves were somewhat reasonably seen and appeared grossly normal. There is approximately a moderate pericardial effusion principally adjacent to the right ventricle and right atrium. It measures 1.3 cm at its largest diameter. There is no compression of any of the cardiac chambers. Inferior vena cava is dilated but completely collapses with inspiration. Aortic root is normal. Aortic arch and abdominal aorta were not well seen. Doppler interrogation reveals no significant aortic, mitral and pulmonic valve disease. There is trace tricuspid insufficiency. Calculated pulmonary artery pressure was in the 30s but it was based on fair quality TR jet and should not be considered completely reliable. There is increased variation of mitral inflow velocities. This is of unclear significance in absence of any other signs to suggest cardiac tamponade. CONCLUSIONS: 1. Study is of fair technical quality, underlying sinus rhythm with narrow QRS complex and occasional premature ventricular contractions (PVCs). 2. Normal left ventricle (LV) size and systolic function. 3. Normal right ventricle (RV) size and systolic function. 4. No significant valvular disease. 5. Likely mildly elevated central venous pressure and at least mild pulmonary hypertension. 6. Moderate pericardial effusion without clearcut hemodynamic significance. Results of the study were communicated to Dr. Coyne. Follow up study in few days is recommended. [facility]
[2021-05-21 08:04] LABS: BASO % 0.2 % (0.0-1.0); HEMATOCRIT 45.4 % (42.0-52.0); HEMOGLOBIN 15.6 g/dl (13.5-17.5); LYMPH # 0.9 10^3/uL (1.5-5.0); MEAN CORPUSCULAR HEMOGLOBIN 29.8 pg (27.0-33.0); MEAN CORPUSCULAR HGB CONC 34.4 g/dl (32.0-36.5); MEAN CORPUSCULAR VOLUME 86.6 fl (80.0-96.0); MONO # 0.8 10^3/uL (0.0-0.8); MONO % 6.1 % (2.0-8.0); NEUTROPHILS % 86.2 % (36.0-66.0); PLATELET COUNT, AUTOMATED 232 10^3/uL (150-450); RED BLOOD COUNT 5.24 10^6/uL (4.30-6.10); WHITE BLOOD COUNT 12.7 10^3/uL (4.0-10.0)
[2021-05-21] MEDS: ADVAIR HFA 230/21MCG INHALER INH SCH ×2 (08:08→19:37)
[2021-05-21] MEDS: ATORVASTATIN 20 MG TAB PO SCH (08:27)
[2021-05-21] MEDS: ENOXAPARIN 30MG/0.3ML SYRINGE (J1650 PER 10MG) SC SCH ×2 (08:27→20:10)
[2021-05-21] MEDS: guaiFENesin ER 600 MG TAB PO SCH ×2 (08:27→20:10)
[2021-05-21 08:35] LABS: BLOOD UREA NITROGEN 16 MG/DL (7-18); CALCIUM LEVEL 8.1 MG/DL (8.8-10.2); CARBON DIOXIDE LEVEL 25 MEQ/L (21-32); CHLORIDE LEVEL 104 MEQ/L (98-107); GLOMERULAR FILTRATION RATE > 60.0 (>49); GLUCOSE, FASTING 180 MG/DL (70-100); MAGNESIUM LEVEL 2.2 MG/DL (1.8-2.4); POTASSIUM SERUM 4.1 MEQ/L (3.5-5.1); SODIUM LEVEL 137 MEQ/L (136-145)
[2021-05-21 10:02] LABS: RHEUMATOID FACTOR QUANT < 10.0 IU/ML (<15.0)
[2021-05-21] MEDS ORDERED: LEVALBUTEROL HFA 45MCG/ACT 15 GM INHALER INH PRN ×2 (10:30→10:44)
[2021-05-21] MEDS: COLCHICINE 0.6 MG TABLET PO SCH (12:00)
--- NOTE | 2021-05-21 12:23 | IPNPDOC ---
Text Note Date of Service The patient was seen on 05/21/21. NOTE Subjective: Patient is a 60-year-old male with a PMHx of COPD (not oxygen or corticosteroid dependent), DLP, Hypothyroidism, OA, Chronic back pain (2/2 DDD), Hx of Polysubstance abuse, Bipolar disorder / ADHD, who presented to the ER with complaints of shortness breath. Patient was admitted to the hospital service for COPD exacerbation. His COVID19 testing resulted positive. Patient was seen and examined at the bedside. Currently patient reports that his breathing is doing better. Denies any nausea, vomiting, chest pain, palpitations, abdominal pain, diarrhea, or urinary discomfort. Patient still reports a mild cough. Objective: Vitals (See below) General: Lying in bed, appears comfortable, AAOx3 HEENT: NC, AT CVS: Tachycardic, +S1S2 Lungs: no significant wheezing, but there is poor aeration bilaterally. No crack les or rhonchi Abdomen: Soft, ND, NT Extremities: - Edema, - Calf tenderness Imaging: CXR 05/20: There are no acute cardiopulmonary findings. There are chronic findings as described. CTA Chest 05/20: 1. No CT evidence of acute pulmonary embolism. 2. No CT evidence of acute thoracic aortic dissection, thoracic aneurysm or acute intramural thoracic aortic hematoma. 3. The heart size is normal. A moderate-size pericardial effusion is present however. Normal size pulmonary vasculature. Mild coronary artery calcification is present. 4. There is retrograde IV contrast reflux from the right atrium into the IVC and hepatic veins. This can be a normal variant due to the high volume IV contrast injection rates typically employed for a CT pulmonary angiogram, however, it can also be seen in right heart strain and various types of right heart disease, such as pulmonary hypertension, tricuspid regurgitation and right ventricular s ystolic dysfunction. 5. A number of small lymph nodes are present in the mediastinum particularly in the infracarinal region. 6. Bilateral pulmonary hyperinflation, secondary to underlying severe ce ntrilobular emphysema. 7. Mild chronic degenerative anterior vertebral body endplate osteophytic di sease is seen in the mid to lower thoracic spine. ECHO 05/20: 1. Study is of fair technical quality, underlying sinus rhythm with narrow QRS complex and occasional premature ventricular contractions (PVCs). 2. Normal left ventricle (LV) size and systolic function. 3. Normal right ventricle (RV) size and systolic function. 4. No significant valvular disease. 5. Likely mildly elevated central venous pressure and at least mild pulmonary hypertension. 6. Moderate pericardial effusion without clearcut hemodynamic significance. Assessment and Plan: Acute hypoxic respiratory failure - likely 2/2 acute exacerbation of COPD - likely 2/2 COVID19 infection; unlikely 2/2 PE - Clinically patient presented to the ER with complaint of shortness of breath 4 days - Currently patient notes that his breathing is doing a lot better - Afebrile - Imaging noted above - c/w Solumedrol and inhaled therapy as ordered - c/w acapella / incentive spirometry / Mucinex Acute COVID19 infection - Reported symptom onset from 05/16/21 - COVID19 positive on 05/20/21 - c/w Remdesivir (Day #2) Pericardial effusion - Imaging noted above - ECHO noted above; no evidence of cardiac tamponade - No requirement for urgent intervention at this time - RF negative - DUANE pending - c/w Colchicine - Dr. Coyne; cardiothoracic surgery on consultation; appreciate their input COPD - Patient is not oxygen or corticosteroid dependent - See above Elevated troponin - likely 2/2 demand ischemia - No CP or palpitations - Tachycardia still persists - Slight elevation of troponin; has remained stable - c/w telemetry monitoring s/p Hyponatremia - likely 2/2 hypotonic hypovolemic etiology - Hx of intermittent mild hyponatremia since 2011 - s/p IV fluid hydration s/p Cr elevated from baseline - Cr baseline of 0.8; has improved - s/p IV fluid hydration DLP - c/w Atorvastatin Hx of Hypothyroidism - Thyroid function noted - Currently not on medications OA / Chronic back pain (2/2 DDD) - c/w Tylenol PRN Hx of Polysubstance abuse - Patient reports that he is abstain from any drug use Bipolar disorder / ADHD - Patient is currently not on any medications DVT prophylaxis - c/w Lovenox weight based prophylactic dosing Disposition: - Awaiting clinical improvement Yoel CHUNG I+O Yoel CHUNG I+O Laboratory Tests 05/20/21 14:33 05/21/21 07:38 Vital Signs Date Time Temp Pulse Resp B/P (MAP) Pulse Ox O2 Delivery O2 Flow Rate FiO2 05/21/21 08:00 2.0 05/21/21 08:00 92 Nasal Cannula 05/21/21 04:00 97.5 115 30 116/71 (86) I&O- Last 24 Hours up to 6 AM 05/21/21 05:59 Intake Total 670 ml Output Total 325 ml Balance 345 ml FORREST LARA MD May 21, 2021 12:23
[2021-05-21] MEDS: LEVALBUTEROL HFA 45MCG/ACT 15 GM INHALER INH SCH ×4 (12:28→19:37)
--- NOTE | 2021-05-21 12:44 | CR ---
CONSULTATION DATE: 05/20/2021 REASON FOR CONSULTATION: Mr. Ramirez was seen at the request of Dr. Tello of the emergency room for a pericardial effusion incidentally found on his CT scan for embolism. HISTORY OF PRESENT ILLNESS: The patient is a 60-year-old white male whose immediate history stretch about four days ago when he began getting short of breath. He has been coughing and bringing up yellow thick phlegm. He denies fever, but has had sweats and he says that he feels clammy. These sweats come and go. He complains of chest discomfort because of increasing shortness of breath. He puts pillows under his back for the last week in order to sleep. He states that he has chronic leg edema for which he wears SILVIA stockings. His shortness of breath has progressed; he is now short of breath at rest. He states that he has always been roughly short of breath secondary to his chronic obstructive pulmonary disease (COPD). He has no dysphagia, but he has decreased appetite. He has a long smoking history of one pack per day, that he obtains from the [facility]. He states that he has quit smoking for the last few years. He is not been vaccinated for COVID. He has tested COVID positive in the emergency room. PAST MEDICAL HISTORY: 1. Chronic obstructive pulmonary disease (COPD). 2. Hypothyroidism. 3. Chronic back pain. 4. Bipolar disorder. 5. Hyperlipidemia. 6. Osteoarthritis. PAST SURGICAL HISTORY: Three inguinal hernias, left hand surgery after trauma, three knee arthroscopies. ALLERGIES: None. MEDICATIONS AT HOME: Albuterol nebulizer q 4 hours as needed for wheezing, albuterol inhaler q 4 hours as needed for shortness of breath and cough, atorvastatin 20 mg daily, famotidine 20 mg every night at bedtime, Advair Diskus 500-50 mg one puff twice a day, Daliresp 250 mcg daily. TRAVEL HISTORY: None outside of [facility] recently. 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 No foreign deployments and no foreign travel. EXPOSURES: No dogs, birds or cats at home. 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 HABITS: The patient above history. No longer involves alcohol and a remote history of polysubstance abuse to include methamphetamines and marijuana. REVIEW OF SYSTEMS: Constitutional: See history of present illness. Without fever, without chills but with sweats. Nose: Without epistasis. Respiratory: See history of present illness. Cardiac: See history of present illness. No history of hypertension or myocardial infarctions. Gastrointestinal (GI): Currently with the above history of present illness. He has also had diarrhea for the last four days. No melena, no hematochezia or nausea or vomiting. Genitourinary (): Without dysuria or hematuria. Neurologic: Without prior paraesthesias or paralyses. Endocrine: Without diabetes, with hypothyroidism. Although, he notes he is not being treated for that. Hematologic: Without prolonged bleeding times. PHYSICAL EXAMINATION: A cachetic white male in acute respiratory distress breathing at a rate of approximately 40 a minute with the use of accessory muscles. Vital signs: Pulse 111, in sinus. Respiratory rate of 25 to 40 with the use of accessory muscles. Blood pressure is 103/58. He is 92% saturated on 2 liters nasal cannula. He can hardly speak in full sentences. Eyes: Pupils equal and reactive to light. Extraocular motions intact Sclerae nonicteric. Nose without deformity. Mouth: Deferred. Neck is supple with no jugular venous distention (JVD). No subcutaneous emphysema. Trachea is midline. Lungs show equal respiratory excursions. I did not listen to him as there was no COVID stethoscope available at the time. I will do so later. Cardiac examination: I can not feel his PMI. He has a regular rate and rhythm. S1, S2 normal. Abdomen: Soft, nontender. There is no hepatomegaly. No costovertebral angle (CVA) tenderness. Extremities: Show no pretibial edema. No calf tenderness. No differential swelling of upper extremities. Skin is warm, dry and perfuse without cyanosis or mottling including nailbeds and knees. Psychiatric: Shows him to be awake and alert. Appropriately anxious from shortness of breath. INVESTIGATIONS: His white count is 11.7 with hemoglobin and hematocrit of 16.3 and 47.6 respectively. Platelet count is 196 and differential shows 77% neutrophils, 3% bands, 8% lymphocytes and 5% monocytes. There are no immature forms or toxic granulations. There are 7 atypical lymphocytes. His electrolytes show sodium 132 with a potassium of 4.2, BUN and creatinine of 13 and 1.1 respectively. Glucose is 151. Calcium 7.8 with an albumin of 3.0. AST and ALT are 62 and 34 respectively. PT and INR are 13.4 and 0.98 respectively with a PTT of 36.7 seconds. His D-dimer is 1400. His chest x-ray shows hyper-expanded lungs. It is done portably. There looks to be some crowding and/or infiltrative process in the right lower lobe with sharp costophrenic angles on the right being cut off on the left. His CT angiogram shows diffuse emphysematous and bullous disease all throughout. There is an infiltrative process in the middle lobe and in the medial lower lobe. There may be fibrotic changes in the lower lobe. He has a very small anterior pericardial effusion. There is minimal mediastinal lymphadenopathy. I see no overt masses. Echocardiogram to my reading shows a small 1 cm pericardial effusion anteriorly. There is no diastolic collapse of the ventricle on the right ventricle or atrium. The IVC measures approximately 1.3 cm and fully collapses. There is no evidence of tamponade on the echocardiogram. The patient has tested COVID positive. IMPRESSION: 1. Shortness of breath. 2. Chronic obstructive pulmonary disease (COPD), probable exacerbation. 3. Positive COVID. 4. Unprotected and unvaccinated. 5. Small pericardial effusion, no tamponade. 6. Osteoarthritis. 7. Hyperlipidemia. PLAN AND DISCUSSION: As far as his pericardial effusion is concerned, he should be treated with anti-inflammatories to include colchicine. There is no call for surgical intervention. We have to treat this as a pericarditis and work him up for autoimmune disease. I do note that his TSH is 0.36, which is at the very bottom of the normal range. I will treat him with Synthroid. It does not look as if he has an overt malignancy, nor does this look to be metabolic with renal failure or severe hypothyroidism. There was no aortic dissection. It could be viral in nature.
[2021-05-21 13:04] LABS: OSMOLALITY URINE 880 MOSM/KG (50-1400)
--- NOTE | 2021-05-21 13:08 | IPN ---
PROGRESS NOTE DATE: 05/21/2021 Mr. Ramirez is breathing fairly comfortably up in the intensive care unit (ICU). He is now on 5 liters nasal cannula. He is still relatively tachycardic in the low 100s. He does not complain of any pain, and he is coughing up yellow sputum. His vital signs show a maximum temperature of 99.3 with a heart rate that is ranging between 71-112 in a sinus rhythm, respiratory rate of 26-30 with some use of cervical accessory muscles, who is 93%-99% saturated now on 5 liters nasal cannula and whose blood pressure is ranging between 113/62 to 119/64. His intake and output for the past 24 hours have been recorded as 670 in and 325 out, for a positivity of 345 mL. PHYSICAL EXAMINATION: His lungs show equally decreased breath sounds on either side. The COVID stethoscope is not the best, but I do not hear wheezing or rales. I do hear some scattered rhonchi. Percussion notes are full to the diaphragm. Cardiac exam does not show any murmurs, clicks, gallops, or rubs, although the heart sounds are fairly distant, which I suspect is secondary to the quality of the stethoscope. I cannot feel his point of maximal impulse (PMI). S1 and S2 are normal. Abdomen is soft and nontender. Bowel sounds are positive. There is no hepatomegaly. No costovertebral angle (CVA) tenderness. Extremities show no pretibial edema, no calf tenderness, no differential swelling of the upper extremities. Skin is warm, dry, and perfused without cyanosis or mottling, including that of the nailbeds and knees. Neck is supple. There is no jugular venous distention. No subcutaneous emphysema. Trachea is midline. Mouth shows the mucous membranes to be pink and moist. Lips and commissures without lesions. No thrush. Eyes show his pupils to be equal and reactive. Extraocular motion intact. Sclerae anicteric. Neurologic shows II-XII intact. Normal gross motor, gross sensation intact. Gait is not tested. Psychiatric shows him to be awake, alert, and oriented times three with appropriate mood and affect and conversational. His white count today is 12.7, essentially unchanged from yesterday of 11.7 with a hemoglobin and hematocrit of 15.6 and 45.4. Again, essentially unchanged from yesterday of 16.3 and 47.6. Platelet count is 232 and stable, and differential shows 86% neutrophils, 70% lymphocytes, 6% monocytes. There are no immature forms or toxic granulations. His electrolytes are normal with a BUN and creatinine of 16 and 0.9, glucose 180, and calcium 8.1. Magnesium is 2.2. There is no chest x-ray on him today. IMPRESSION: 1. Small pericardial effusion without tamponade or compression. 2. COVID-19 pneumonitis. 3. Hypothyroidism. 4. Severe chronic obstructive pulmonary disease (COPD). 5. Hyperlipidemia. 6. Osteoarthritis. 7. Prior tobacco abuse. PLAN AND DISCUSSION: I suggested yesterday that patient has been started on colchicine, and he has not, and I will therefore start him today. That will hopefully treat his pericarditis and maybe even his COVID. I have ordered an antinuclear antibody (DUANE) and rheumatoid factor as a screening autoimmune workup. As he has no evidence of tamponade and there is no surgical intervention required, I am going to withdraw from the case to followup on an as-needed basis. I will treat him as pericarditis. I outlined the differential yesterday in my note to include autoimmune, infectious, inflammatory, metabolic, mechanical, and malignant disease. There is no evidence of malignancy, and there is no evidence of thoracic dissection. I do suspect that he has pulmonary hypertension from his chronic COPD, which would give him increased right-sided heart pressures. In the end I suspect this will sleeve turner to be a viral pericarditis by exclusion.
[2021-05-21 13:33] LABS: SODIUM,RANDOM URINE < 10 MEQ/L
[2021-05-21 14:00] LABS: APPEARANCE, URINE HAZY (CLEAR); BACTERIA, URINE AUTO 1+ (NEGATIVE); BILIRUBIN, URINE AUTO NEGATIVE (NEGATIVE); BLOOD, URINE BLOOD 3+ (NEGATIVE); COLOR, URINE YELLOW (YELLOW); GLUCOSE, URINE (UA) AUTO 1+ mg/dL (NEGATIVE); KETONE, URINE AUTO TRACE mg/dL (NEGATIVE); LEUKOCYTE ESTERASE, URINE AUTO NEGATIVE (NEGATIVE); MUCUS, URINE SMALL (NEGATIVE); NITRITE, URINE AUTO NEGATIVE (NEGATIVE); PROTEIN, URINE AUTO 3+ mg/dL (NEGATIVE); RBC, URINE AUTO 0 /HPF (0-3); SPECIFIC GRAVITY URINE AUTO 1.038 (1.002-1.035); SQUAMOUS EPITHELIAL CELL UR AU 0 /HPF (0-6); UROBILINOGEN, URINE AUTO 0.2 mg/dL (0.0-2.0); WBC, URINE AUTO 2 /HPF (0-3)
[2021-05-21] MEDS: REMDESIVIR 100 MG in NS 250 ML IV SCH (17:33)
[2021-05-21] MEDS: SODIUM CHLORIDE 0.9% INJ 10 ML SYR IV SCH (18:19)
[2021-05-21] MEDS: FAMOTIDINE 20 MG TAB PO SCH (20:10)
[2021-05-22] VITALS (7 sets, daily range): BP systolic 112–159; BP diastolic 60–87; O2SAT 89–94
[2021-05-22] MEDS: methylPREDNISolone 40MG 1ML VIAL IV SCH ×3 (00:24→18:02)
[2021-05-22 06:34] LABS: BASO % 0.1 % (0.0-1.0); HEMOGLOBIN 15.1 g/dl (13.5-17.5); LYMPH # 0.8 10^3/uL (1.5-5.0); LYMPH % 4.6 % (24.0-44.0); MEAN CORPUSCULAR HEMOGLOBIN 29.9 pg (27.0-33.0); MEAN CORPUSCULAR HGB CONC 34.3 g/dl (32.0-36.5); MEAN CORPUSCULAR VOLUME 87.1 fl (80.0-96.0); MONO # 1.5 10^3/uL (0.0-0.8); MONO % 8.6 % (2.0-8.0); NEUTROPHILS # 14.5 10^3/uL (1.5-8.5); PLATELET COUNT, AUTOMATED 289 10^3/uL (150-450); RED BLOOD COUNT 5.05 10^6/uL (4.30-6.10)
[2021-05-22 06:35] LABS: WHITE BLOOD COUNT 16.9 10^3/uL (4.0-10.0)
[2021-05-22 06:44] LABS: INR 1.09; PROTHROMBIN TIME 14.5 SECONDS (12.7-14.5)
[2021-05-22 06:45] LABS: PARTIAL THROMBOPLASTIN TIME 31.9 SECONDS (25.9-37.0)
[2021-05-22 07:01] LABS: ALBUMIN 2.7 GM/DL (3.2-5.2); ALT/SGPT 42 U/L (12-78); BILIRUBIN,DIRECT 0.2 MG/DL (0.0-0.2); BILIRUBIN,TOTAL 0.3 MG/DL (0.2-1.0); BLOOD UREA NITROGEN 24 MG/DL (7-18); CALCIUM LEVEL 7.9 MG/DL (8.8-10.2); CARBON DIOXIDE LEVEL 27 MEQ/L (21-32); CHLORIDE LEVEL 104 MEQ/L (98-107); CPK CREATINE PHOSPHOKINASE 452 U/L (39-308); FERRITIN 1372 NG/ML (26-388); GLOMERULAR FILTRATION RATE > 60.0 (>49); GLUCOSE, FASTING 137 MG/DL (70-100); LDH LACTATE DEHYDROGENASE 428 U/L (87-241); MAGNESIUM LEVEL 2.3 MG/DL (1.8-2.4); NT-PRO BNP 510 PG/ML (<125); POTASSIUM SERUM 4.9 MEQ/L (3.5-5.1); SODIUM LEVEL 136 MEQ/L (136-145); TOTAL PROTEIN 5.5 GM/DL (6.4-8.2); TROPONIN I 0.04 NG/ML (< 0.10)
[2021-05-22] MEDS: ENOXAPARIN 30MG/0.3ML SYRINGE (J1650 PER 10MG) SC SCH ×2 (08:23→20:49)
[2021-05-22] MEDS: COLCHICINE 0.6 MG TABLET PO SCH (08:23)
[2021-05-22] MEDS: ATORVASTATIN 20 MG TAB PO SCH (08:24)
[2021-05-22] MEDS: guaiFENesin ER 600 MG TAB PO SCH ×2 (08:24→20:49)
[2021-05-22] MEDS: ADVAIR HFA 230/21MCG INHALER INH SCH ×2 (09:10→19:33)
[2021-05-22] MEDS: LEVALBUTEROL HFA 45MCG/ACT 15 GM INHALER INH SCH ×4 (09:10→19:34)
--- NOTE | 2021-05-22 11:10 | IPNPDOC ---
Text Note Date of Service The patient was seen on 05/22/21. NOTE Subjective: Patient is a 60-year-old male with a PMHx of COPD (not oxygen or corticosteroid dependent), DLP, Hypothyroidism, OA, Chronic back pain (2/2 DDD), Hx of Polysubstance abuse, Bipolar disorder / ADHD, who presented to the ER with complaints of shortness breath. Patient was admitted to the hospital service for COPD exacerbation. His COVID19 testing resulted positive. Patient was seen and examined at the bedside. Currently denies any CP, or palpitations. Reports his breathing is doing better. Denies any N/V, abdominal pain, reports his stool is formed. Denies any urinary discomfort. Objective: Vitals (See below) General: Sitting up in bed, appears comfortable without any acute distress, awake and alert, oriented x3 HEENT: Atraumatic and normocephalic CVS: Tachycardic, +S1S2 Lungs: Aeration is difficult to appreciate bilaterally, no wheezing / rhonchi / rales Abdomen: Soft, no distention or tenderness Extremities: No evidence of edema Imaging: CXR 05/20: There are no acute cardiopulmonary findings. There are chronic findings as described. CTA Chest 05/20: 1. No CT evidence of acute pulmonary embolism. 2. No CT evidence of acute thoracic aortic dissection, thoracic aneurysm or acute intramural thoracic aortic hematoma. 3. The heart size is normal. A moderate-size pericardial effusion is present however. Normal size pulmonary vasculature. Mild coronary artery calcification is present. 4. There is retrograde IV contrast reflux from the right atrium into the IVC and hepatic veins. This can be a normal variant due to the high volume IV contrast injection rates typically employed for a CT pulmonary angiogram, however, it can also be seen in right heart strain and various types of right heart disease, such as pulmonary hypertension, tricuspid regurgitation and right ventricular systolic dysfunction. 5. A number of small lymph nodes are present in the mediastinum particularly in the infracarinal region. 6. Bilateral pulmonary hyperinflation, secondary to underlying severe centrilobular emphysema. 7. Mild chronic degenerative anterior vertebral body endplate osteophytic disease is seen in the mid to lower thoracic spine. ECHO 05/20: 1. Study is of fair technical quality, underlying sinus rhythm with narrow QRS complex and occasional premature ventricular contractions (PVCs). 2. Normal left ventricle (LV) size and systolic function. 3. Normal right ventricle (RV) size and systolic function. 4. No significant valvular disease. 5. Likely mildly elevated central venous pressure and at least mild pulmonary hypertension. 6. Moderate pericardial effusion without clearcut hemodynamic significance. Assessment and Plan: Acute hypoxic respiratory failure - likely 2/2 acute exacerbation of COPD - likely 2/2 COVID19 infection; unlikely 2/2 PE - Patient reports that his breathing continues to improve; currently reporting a non-productive cough - Afebrile - Imaging noted above - c/w Solumedrol and inhaled therapy as ordered - c/w acapella / incentive spirometry / Mucinex Acute COVID19 infection - Reported symptom onset from 05/16/21 - COVID19 positive on 05/20/21 - c/w Remdesivir (Day #3) Pericardial effusion - Imaging noted above - ECHO noted above; no evidence of cardiac tamponade - No requirement for urgent intervention at this time - RF negative - DUANE pending - c/w Colchicine (Day #2) - Dr. Coyne; cardiothoracic surgery on consultation; appreciate their input COPD - Patient is not oxygen or corticosteroid dependent - See above Elevated troponin - likely 2/2 demand ischemia - No CP or palpitations - Tachycardia still persists - Troponin trend improved - c/w telemetry monitoring s/p Hyponatremia - likely 2/2 hypotonic hypovolemic etiology - Hx of intermittent mild hyponatremia since 2011 - s/p IV fluid hydration s/p Cr elevated from baseline - Cr baseline of 0.8; has improved - s/p IV fluid hydration DLP - c/w Atorvastatin Hx of Hypothyroidism - Thyroid function noted - Currently not on medications OA / Chronic back pain (2/2 DDD) - c/w Tylenol PRN Hx of Polysubstance abuse - Patient reports that he has abstained from any drug use Bipolar disorder / ADHD - Patient is currently not on any medications DVT prophylaxis - c/w Lovenox weight based prophylactic dosing Disposition: - Awaiting clinical improvement Yoel CHUNG I+O Yoel CHUNG I+O Laboratory Tests 05/22/21 06:00 Vital Signs Date Time Temp Pulse Resp B/P (MAP) Pulse Ox O2 Delivery O2 Flow Rate FiO2 05/22/21 10:00 109 91 Nasal Cannula 3.0 05/22/21 08:00 97.0 24 139/83 (101) I&O- Last 24 Hours up to 6 AM 05/22/21 06:00 Intake Total 2490 ml Output Total 1175 ml Balance 1315 ml FORREST LARA MD May 22, 2021 11:10
[2021-05-22] MEDS: REMDESIVIR 100 MG in NS 250 ML IV SCH (18:03)
[2021-05-22] MEDS: SODIUM CHLORIDE 0.9% INJ 10 ML SYR IV SCH (19:18)
[2021-05-22 20:07] LABS: ANTINUCLEAR ANTIBODIES DIRECT Negative (Negative)
[2021-05-22] MEDS: FAMOTIDINE 20 MG TAB PO SCH (20:49)
[2021-05-23] VITALS (8 sets, daily range): BP systolic 117–147; BP diastolic 75–82; O2SAT 89–92
[2021-05-23] MEDS: methylPREDNISolone 40MG 1ML VIAL IV SCH ×3 (00:19→20:34)
[2021-05-23 04:51] LABS: BASO % 0.1 % (0.0-1.0); HEMATOCRIT 39.6 % (42.0-52.0); LYMPH # 0.5 10^3/uL (1.5-5.0); LYMPH % 3.9 % (24.0-44.0); MEAN CORPUSCULAR HEMOGLOBIN 30.4 pg (27.0-33.0); MEAN CORPUSCULAR HGB CONC 35.4 g/dl (32.0-36.5); MEAN CORPUSCULAR VOLUME 85.9 fl (80.0-96.0); MONO % 7.9 % (2.0-8.0); NEUTROPHILS # 10.8 10^3/uL (1.5-8.5); NEUTROPHILS % 87.7 % (36.0-66.0); PLATELET COUNT, AUTOMATED 302 10^3/uL (150-450); RED BLOOD COUNT 4.61 10^6/uL (4.30-6.10); WHITE BLOOD COUNT 12.3 10^3/uL (4.0-10.0)
[2021-05-23 05:10] LABS: BLOOD UREA NITROGEN 20 MG/DL (7-18); CALCIUM LEVEL 7.8 MG/DL (8.8-10.2); CARBON DIOXIDE LEVEL 26 MEQ/L (21-32); CHLORIDE LEVEL 105 MEQ/L (98-107); CREATININE FOR GFR 0.63 MG/DL (0.70-1.30); GLOMERULAR FILTRATION RATE > 60.0 (>49); GLUCOSE, FASTING 156 MG/DL (70-100); MAGNESIUM LEVEL 2.3 MG/DL (1.8-2.4); POTASSIUM SERUM 4.6 MEQ/L (3.5-5.1); SODIUM LEVEL 137 MEQ/L (136-145)
[2021-05-23] MEDS: ATORVASTATIN 20 MG TAB PO SCH (08:29)
[2021-05-23] MEDS: COLCHICINE 0.6 MG TABLET PO SCH (08:29)
[2021-05-23] MEDS: guaiFENesin ER 600 MG TAB PO SCH ×2 (08:29→20:33)
[2021-05-23] MEDS: ENOXAPARIN 30MG/0.3ML SYRINGE (J1650 PER 10MG) SC SCH ×2 (08:29→20:33)
[2021-05-23] MEDS: ADVAIR HFA 230/21MCG INHALER INH SCH ×2 (08:48→22:04)
[2021-05-23] MEDS: LEVALBUTEROL HFA 45MCG/ACT 15 GM INHALER INH SCH ×4 (08:48→15:45)
--- NOTE | 2021-05-23 09:58 | IPNPDOC ---
Text Note Date of Service The patient was seen on 05/23/21. NOTE Subjective: Patient is a 60-year-old male with a PMHx of COPD (not oxygen or corticosteroid dependent), DLP, Hypothyroidism, OA, Chronic back pain (2/2 DDD), Hx of Polysubstance abuse, Bipolar disorder / ADHD, who presented to the ER with complaints of shortness breath. Patient was admitted to the hospital service for COPD exacerbation. His COVID19 testing resulted positive. Patient was seen and examined at the bedside. Patient reported that his b reathing is doing better. Reports a non-productive cough. Denies any CP, palpitations. Denies any N/V, abdominal pain, C/D or urinary discomfort. Objective: Vitals (See below) General: Patient is sitting up in bed, helped to commode, no acute distress, comfortable, aaox3 HEENT: AT, NC CVS: +S1S2 Lungs: Air flow is difficult to appreciate bilaterally, however there does not appear to be any significant wheezing / crackles / rhonchi Abdomen: Remains soft, without any distension / tenderness Extremities: LE are without edema Imaging: CXR 05/20: There are no acute cardiopulmonary findings. There are chronic findings as described. CTA Chest 05/20: 1. No CT evidence of acute pulmonary embolism. 2. No CT evidence of acute thoracic aortic dissection, thoracic aneurysm or acute intramural thoracic aortic hematoma. 3. The heart size is normal. A moderate-size pericardial effusion is present however. Normal size pulmonary vasculature. Mild coronary artery calcification is present. 4. There is retrograde IV contrast reflux from the right atrium into the IVC and hepatic veins. This can be a normal variant due to the high volume IV contrast injection rates typically employed for a CT pulmonary angiogram, however, it can also be seen in right heart strain and various types of right heart disease, such as pulmonary hypertension, tricuspid regurgitation and right ventricular systolic dysfunction. 5. A number of small lymph nodes are present in the mediastinum particularly in the infracarinal region. 6. Bilateral pulmonary hyperinflation, secondary to underlying severe centrilobular emphysema. 7. Mild chronic degenerative anterior vertebral body endplate osteophytic disease is seen in the mid to lower thoracic spine. ECHO 05/20: 1. Study is of fair technical quality, underlying sinus rhythm with narrow QRS complex and occasional premature ventricular contractions (PVCs). 2. Normal left ventricle (LV) size and systolic function. 3. Normal right ventricle (RV) size and systolic function. 4. No significant valvular disease. 5. Likely mildly elevated central venous pressure and at least mild pulmonary hypertension. 6. Moderate pericardial effusion without clearcut hemodynamic significance. Assessment and Plan: Acute hypoxic respiratory failure - likely 2/2 acute exacerbation of COPD - likely 2/2 COVID19 infection; unlikely 2/2 PE - Improvement of breathing noted; no significant productive cough - Afebrile / Hemodynamically stable - Imaging noted above - c/w Solumedrol; will reduce dose - c/w Inhaled therapy as ordered - c/w Acapella / Incentive spirometry / Mucinex Acute COVID19 infection - Reported symptom onset from 05/16/21 - COVID19 positive on 05/20/21 - c/w Remdesivir (Day #4) Pericardial effusion; no evidence of cardiac tamponade - Imaging noted above - ECHO noted above; no evidence of cardiac tamponade - No requirement for urgent intervention at this time - RF negative / DUANE negative - c/w Colchicine (Day #3) - Dr. Coyne; Cardiothoracic surgery on consultation; appreciate their input COPD - Patient is not oxygen or corticosteroid dependent - See above Elevated troponin - likely 2/2 demand ischemia - No CP or palpitations - Tachycardia improved - Troponin trend improved - c/w telemetry monitoring s/p Hyponatremia - likely 2/2 hypotonic hypovolemic etiology - Hx of intermittent mild hyponatremia since 2011 - s/p IV fluid hydration s/p Cr elevated from baseline - Cr baseline of 0.8; has improved - s/p IV fluid hydration DLP - c/w Atorvastatin Hx of Hypothyroidism - Thyroid function noted - Currently not on medications OA / Chronic back pain (2/2 DDD) - c/w Tylenol PRN Hx of Polysubstance abuse - Patient reports that he has abstained from any drug use Bipolar disorder / ADHD - Patient is currently not on any medications DVT prophylaxis - c/w Lovenox weight based prophylactic dosing Disposition: - Awaiting clinical improvement - Will downgrade today VS,Fishbone, I+O VS, Fishbone, I+O Laboratory Tests 05/23/21 04:39 Vital Signs Date Time Temp Pulse Resp B/P (MAP) Pulse Ox O2 Delivery O2 Flow Rate FiO2 05/23/21 04:00 3.0 05/23/21 04:00 97.7 99 22 131/80 (97) 89 Nasal Cannula I&O- Last 24 Hours up to 6 AM 05/23/21 06:00 Intake Total 1210 ml Output Total 800 ml Balance 410 ml FORREST LARA MD May 23, 2021 09:58
[2021-05-23] MEDS: REMDESIVIR 100 MG in NS 250 ML IV SCH (18:29)
[2021-05-23] MEDS: SODIUM CHLORIDE 0.9% INJ 10 ML SYR IV SCH (19:29)
[2021-05-23] MEDS: FAMOTIDINE 20 MG TAB PO SCH (20:33)
[2021-05-24] VITALS: O2SAT 90
[2021-05-24 04:00] VITALS: BP 129/77; O2SAT 90
[2021-05-24 07:13] LABS: BASO % 0.2 % (0.0-1.0); HEMATOCRIT 41.4 % (42.0-52.0); HEMOGLOBIN 14.2 g/dl (13.5-17.5); LYMPH # 0.6 10^3/uL (1.5-5.0); LYMPH % 4.2 % (24.0-44.0); MEAN CORPUSCULAR HEMOGLOBIN 29.9 pg (27.0-33.0); MEAN CORPUSCULAR HGB CONC 34.3 g/dl (32.0-36.5); MEAN CORPUSCULAR VOLUME 87.2 fl (80.0-96.0); MONO # 1.1 10^3/uL (0.0-0.8); MONO % 8.2 % (2.0-8.0); NEUTROPHILS # 11.6 10^3/uL (1.5-8.5); NEUTROPHILS % 86.7 % (36.0-66.0); PLATELET COUNT, AUTOMATED 346 10^3/uL (150-450); RED BLOOD COUNT 4.75 10^6/uL (4.30-6.10); WHITE BLOOD COUNT 13.3 10^3/uL (4.0-10.0)
[2021-05-24 07:23] LABS: INR 1.07; PROTHROMBIN TIME 14.3 SECONDS (12.7-14.5)
[2021-05-24 07:24] LABS: PARTIAL THROMBOPLASTIN TIME 31.9 SECONDS (25.9-37.0)
[2021-05-24] MEDS: ADVAIR HFA 230/21MCG INHALER INH SCH (07:25)
[2021-05-24] MEDS: LEVALBUTEROL HFA 45MCG/ACT 15 GM INHALER INH SCH ×2 (07:26→15:01)
[2021-05-24 08:17] LABS: ALBUMIN 2.5 GM/DL (3.2-5.2); ALT/SGPT 63 U/L (12-78); BILIRUBIN,DIRECT 0.1 MG/DL (0.0-0.2); BILIRUBIN,TOTAL 0.4 MG/DL (0.2-1.0); BLOOD UREA NITROGEN 19 MG/DL (7-18); CARBON DIOXIDE LEVEL 25 MEQ/L (21-32); CHLORIDE LEVEL 105 MEQ/L (98-107); CPK CREATINE PHOSPHOKINASE 154 U/L (39-308); CREATININE FOR GFR 0.61 MG/DL (0.70-1.30); FERRITIN 560 NG/ML (26-388); GLOMERULAR FILTRATION RATE > 60.0 (>49); GLUCOSE, FASTING 142 MG/DL (70-100); LDH LACTATE DEHYDROGENASE 339 U/L (87-241); MAGNESIUM LEVEL 2.2 MG/DL (1.8-2.4); NT-PRO BNP 399 PG/ML (<125); POTASSIUM SERUM 4.3 MEQ/L (3.5-5.1); SODIUM LEVEL 136 MEQ/L (136-145); TOTAL PROTEIN 5.6 GM/DL (6.4-8.2); TROPONIN I 0.02 NG/ML (< 0.10)
[2021-05-24] MEDS ORDERED: MUCI600T31 PO (08:53)
[2021-05-24] MEDS ORDERED: COLC0.6T47 PO (08:53)
[2021-05-24] MEDS ORDERED: PRED10TA2 PO (08:53)
[2021-05-24] MEDS: methylPREDNISolone 40MG 1ML VIAL IV SCH (10:22)
[2021-05-24] MEDS: ATORVASTATIN 20 MG TAB PO SCH (10:23)
[2021-05-24] MEDS: COLCHICINE 0.6 MG TABLET PO SCH (10:23)
[2021-05-24] MEDS: guaiFENesin ER 600 MG TAB PO SCH (10:23)
[2021-05-24] MEDS: ENOXAPARIN 30MG/0.3ML SYRINGE (J1650 PER 10MG) SC SCH (10:23)
--- NOTE | 2021-05-24 11:43 | DS.PDOC ---
Discharge Summary General Date of Admission May 20, 2021 at 20:21 Date of Discharge 05/24/2021 Discharge Summary PROCEDURES PERFORMED DURING STAY: [None]. ADMITTING DIAGNOSES / DISCHARGE DIAGNOSES: Acute hypoxic respiratory failure - likely 2/2 acute exacerbation of COPD - likely 2/2 COVID19 infection; unlikely 2/2 PE Acute COVID19 infection Pericardial effusion; no evidence of cardiac tamponade COPD Elevated troponin - likely 2/2 demand ischemia s/p Hyponatremia - likely 2/2 hypotonic hypovolemic etiology s/p Cr elevated from baseline DLP Hx of Hypothyroidism OA / Chronic back pain (2/2 DDD) Hx of Polysubstance abuse Bipolar disorder / ADHD DVT prophylaxis COMPLICATIONS/CHIEF COMPLAINT: Shortness of breath HISTORY OF PRESENT ILLNESS: Patient is a 60-year-old male with a PMHx of COPD (not oxygen or corticosteroid dependent), DLP, Hypothyroidism, OA, Chronic back pain (2/2 DDD), Hx of Polysubstance abuse, Bipolar disorder / ADHD, who presented to the ER with complaints of shortness breath. Patient was admitted to the hospital service for COPD exacerbation. His COVID19 testing resulted positive. Patient was seen and examined at the bedside. Patient has reported significant improvement of his breathing. Denies any chest pain, palpitations, nausea, vomiting, abdominal pain, diarrhea. Reports a mild cough. HOSPITAL COURSE: Acute hypoxic respiratory failure - likely 2/2 acute exacerbation of COPD - likely 2/2 COVID19 infection; unlikely 2/2 PE - Patient has reported significant improvement of his breathing with a mild cough - Patient's oxygenation has remained stable and he will be discharged home with 1-2 L of nasal cannula oxygen - He remains afebrile and hemodynamically stable - Imaging noted above - Will start Prednisone taper on discharge; Will DC Solumedrol - c/w Inhaled therapy as ordered - c/w Acapella / Incentive spirometry / Mucinex - Will discharge home with services and supplemental oxygen at 1-2 L - Will have outpatient follow-up with primary care provider cardiology and cardiovascular surgery within the next 7 days Acute COVID19 infection - Reported symptom onset from 05/16/21 - COVID19 positive on 05/20/21 - c/w Remdesivir (Day #5) Pericardial effusion; no evidence of cardiac tamponade - Imaging noted above - ECHO noted above; no evidence of cardiac tamponade - No requirement for urgent intervention at this time - RF negative / DUANE negative - c/w Colchicine (Day #4); will continue with colchicine as an outpatient - Dr. Coyne; Cardiothoracic surgery on consultation; appreciate their input - Will have outpatient follow-up with cardiology COPD - Patient is not oxygen or corticosteroid dependent - See above Elevated troponin - likely 2/2 demand ischemia - No CP or palpitations - Tachycardia improved - Troponin trend improved - c/w telemetry monitoring s/p Hyponatremia - likely 2/2 hypotonic hypovolemic etiology - Hx of intermittent mild hyponatremia since 2011 - s/p IV fluid hydration s/p Cr elevated from baseline - Cr baseline of 0.8; has improved - s/p IV fluid hydration DLP - c/w Atorvastatin Hx of Hypothyroidism - Thyroid function noted - Currently not on medications OA / Chronic back pain (2/2 DDD) - c/w Tylenol PRN Hx of Polysubstance abuse - Patient reports that he has abstained from any drug use Bipolar disorder / ADHD - Patient is currently not on any medications DVT prophylaxis - c/w Lovenox weight based prophylactic dosing DISCHARGE MEDICATIONS: Please see below. ALLERGIES: Please see below. PHYSICAL EXAMINATION ON DISCHARGE: Vitals (See below) General: Patient is sitting up in bed, comfortable, not in any acute distress, speaking in full sentences, is awake and alert, oriented to person, place and time HEENT: NC, AT CVS: +S1S2 Lungs: Difficult to appreciate. However, there is no evidence of auscultated wheezing, crackles or rhonchi Abdomen: Abdomen is soft without any appreciated distention or tenderness Extremities: No evidence of edema LABORATORY DATA: Please see below. IMAGING: CXR 05/20: There are no acute cardiopulmonary findings. There are chronic findings as described. CTA Chest 05/20: 1. No CT evidence of acute pulmonary embolism. 2. No CT evidence of acute thoracic aortic dissection, thoracic aneurysm or acute intramural thoracic aortic hematoma. 3. The heart size is normal. A moderate-size pericardial effusion is present however. Normal size pulmonary vasculature. Mild coronary artery calcification is present. 4. There is retrograde IV contrast reflux from the right atrium into the IVC and hepatic veins. This can be a normal variant due to the high volume IV contrast injection rates typically employed for a CT pulmonary angiogram, however, it can also be seen in right heart strain and various types of right heart disease, such as pulmonary hypertension, tricuspid regurgitation and right ventricular systolic dysfunction. 5. A number of small lymph nodes are present in the mediastinum particularly in the infracarinal region. 6. Bilateral pulmonary hyperinflation, secondary to underlying severe centrilobular emphysema. 7. Mild chronic degenerative anterior vertebral body endplate osteophytic disease is seen in the mid to lower thoracic spine. ECHO 05/20: 1. Study is of fair technical quality, underlying sinus rhythm with narrow QRS complex and occasional premature ventricular contractions (PVCs). 2. Normal left ventricle (LV) size and systolic function. 3. Normal right ventricle (RV) size and systolic function. 4. No significant valvular disease. 5. Likely mildly elevated central venous pressure and at least mild pulmonary hypertension. 6. Moderate pericardial effusion without clearcut hemodynamic significance. ACTIVITY: [As tolerated]. DISCHARGE PLAN: Follow-up with primary care provider. Cardiology and cardiothoracic surgery within the next 7-14 days Remain compliant with treatment plan and medications Have outpatient echocardiogram completed within 2 weeks Return to the ER if you experience any problems DISPOSITION: Home with services DISCHARGE CONDITION: [Stable]. TIME SPENT ON DISCHARGE: 35 minutes. Vital Signs/I&Os Vital Signs Date Time Temp Pulse Resp B/P (MAP) Pulse Ox O2 Delivery O2 Flow Rate FiO2 05/24/21 04:00 97.1 85 20 129/77 (94) 91 Nasal Cannula 2.0 I&O- Last 24 Hours up to 6 AM 05/24/21 06:00 Intake Total 2500 ml Balance 2500 ml Laboratory Data Labs 24H Laboratory Tests 2 05/24/21 06:42: Immature Granulocyte % (Auto) 0.7, Neutrophils (%) (Auto) 86.7H, Lymphocytes (%) (Auto) 4.2L, Monocytes (%) (Auto) 8.2H, Eosinophils (%) (Auto) 0.0, Basophils (%) (Auto) 0.2, Neutrophils # (Auto) 11.6H, Lymphocytes # (Auto) 0.6L, Monocytes # (Auto) 1.1H, Eosinophils # (Auto) 0.0, Basophils # (Auto) 0.0, Nucleated Red Blood Cells % (auto) 0.0, Prothrombin Time 14.3H, Prothromb Time International Ratio 1.07, Activated Partial Thromboplast Time 31.9, Fibrinogen 391, Anion Gap 6L, Glomerular Filtration Rate > 60.0, Calcium Level 8.0L, Magnesium Level 2.2, Ferritin 560H, Total Bilirubin 0.4, Direct Bilirubin 0.1, Aspartate Amino Transf (AST/SGOT) 49H, Alanine Aminotransferase (ALT/SGPT) 63, Alkaline Phosphatase 85, Lactate Dehydrogenase 339H, Total Creatine Kinase 154, Troponin I 0.02, FZ-Tiz-B-Type Natriuretic Peptide 399H, Total Protein 5.6L, Albumin 2.5L, Albumin/Globulin Ratio 0.8, Procalcitonin 0.24 CBC/BMP Laboratory Tests 05/24/21 06:42 Microbiology Microbiology 05/20/21 Respiratory Virus Panel (PCR) ([facility]) - Final, Complete SARS-CoV-2 (COVID 19) Discharge Medications Scheduled Atorvastatin Calcium (Atorvastatin Calcium) 20 Mg Tablet, 20 MG PO DAILY, (Reported) Colchicine (Colchicine) 0.6 Mg Tablet, 0.6 MG PO DAILY Famotidine (Famotidine) 20 Mg Tablet, 20 MG PO QHS, (Reported) Guaifenesin (Mucinex) 600 Mg Tab.er.12h, 600 MG PO BID Prednisone (Prednisone) 10 Mg Tablet, 10 MG PO TAPER Take 4 tabs daily x 3 days, then 3 tabs daily x 3 days, then 2 tabs daily x 3 days, then 1 tab daily x 3 days and stop Roflumilast (Daliresp) 250 Mcg Tablet, 250 MCG PO DAILY, (Reported) Salmeterol/Fluticasone (Advair 500-50 Diskus) 1 Each Blst.w.dev, 1 PUFF INH BID, (Reported) Scheduled PRN Albuterol Sulf (Albuterol Sulfate) 2.5 Mg/3 Ml Vial.neb, 1 VIAL NEB Q4HP PRN for wheezing Albuterol Sulfate (Albuterol Sulfate Hfa) 8.5 Gm Hfa.aer.ad, 2 PUFFS INH Q4H PRN for SOB/COUGH, (Reported) Allergies Coded Allergies: No Known Allergies (Verified , 03/08/18) FORREST LARA MD May 24, 2021 11:43
[2021-05-24 14:08] LABS: MYCOPLASMA PNEUMONIAE IgG 273 U/mL (0-99); MYCOPLASMA PNEUMONIAE IgM <770 U/mL (0-769)
[2021-05-24 15:07] LABS: BODY FLUID CULTURE Not indicated. (.); LEGIONELLA ANTIGEN URINE Negative (Negative); ORGANISM ID Not indicated. (.); SPECIMEN SOURCE Urine (.); URINE STREP PNEUMONIAE ANTIGEN Negative (Negative)
== END 2021-05-24 15:38 | disposition home health service (06) | DRG 177 ==
LOC: EDSEX 14:12 → M ED 14:12 → EDBD 14:12 → M ED INP 20:21 → M ICU 22:07 → M 4MAIN 05-23 14:40
PROVIDERS: ADMIT Internal Medicine; ATTEND Internal Medicine
DX: U07.1 COVID-19 (principal); J96.01 Acute respiratory failure with hypoxia; J12.82 Pneumonia due to coronavirus disease 2019; J44.1 Chronic obstructive pulmonary disease with (acute) exacerbation; E87.1 Hypo-osmolality and hyponatremia; I31.9 Disease of pericardium, unspecified; I24.8 Other forms of acute ischemic heart disease; F31.9 Bipolar disorder, unspecified; E03.9 Hypothyroidism, unspecified; M19.90 Unspecified osteoarthritis, unspecified site; Z79.899 Other long term (current) drug therapy; E78.5 Hyperlipidemia, unspecified

== ENCOUNTER 2021-06-04 12:47 | Emergency (ER) | payer MEDICARE, MEDICAID ==
[~2021-06-04] VITALS: Ht 162.6 cm; Wt 65.9 kg
[~2021-06-04 12:47] MED LIST changes: +COLC0.6T47 PO; +FAMO20TA5 PO; +MUCI600T31 PO
[2021-06-04 13:01] VITALS: BP 106/62
== END 2021-06-04 13:09 | disposition left against medical advice (07) ==
LOC: M ED 12:47
DX: R06.00 Dyspnea, unspecified (principal); Z53.9 Procedure and treatment not carried out, unspecified reason; J44.9 Chronic obstructive pulmonary disease, unspecified; E03.9 Hypothyroidism, unspecified; G89.29 Other chronic pain; Z86.16 Personal history of COVID-19; F31.9 Bipolar disorder, unspecified; F17.200 Nicotine dependence, unspecified, uncomplicated; Z79.51 Long term (current) use of inhaled steroids; Z79.899 Other long term (current) drug therapy

== ENCOUNTER → 2021-07-13 | Outpatient (CLI) | payer MEDICARE, MEDICAID ==
--- NOTE | 2021-07-13 21:00 | ECHO ---
ECHOCARDIOGRAM DATE OF PROCEDURE: 07/13/2021 Age: Gender: Height: 165 cm Weight: 63 kg REFERRING PHYSICIAN: Arely Ty RN, ANP INDICATION: Pericardial effusion. MEASUREMENTS: IVS 1.0 LV 3.9 LVPW 1.0 LA 2.6 Aorta 3.9 Left atrial volume index 25 IVC 2.4 Mitral E-wave velocity 49, A-wave 61 E prime septal 5.2 E prime lateral 7.4 FINDINGS: The study is of fair technical quality. Patient is in sinus rhythm with frequent ventricular ectopy. Left ventricle is normal size and overall normal systolic function. Estimated LVEF is approximately 55%. Right ventricle also has normal size and systolic function. Both atria appear normal. Aortic, mitral, and tricuspid valves appear normal. Pulmonic valve was not well seen. There is small to moderate size pericardial effusion, principally adjacent to left ventricular apex and right ventricular free wall. I do not appreciate any collapse of any of the heart chambers. Inferior vena cava is dilated but completely collapses with inspiration, indicative of mildly elevated central venous pressure. Aortic root is mildly dilated at 3.9 cm. Aortic arch and abdominal aorta were not well seen. Doppler interrogation of aortic valve reveals no stenosis or insufficiency. Same applies for mitral valve. Trace tricuspid insufficiency is seen, but quality of TR jet was not sufficiency to adequately estimate pulmonary artery pressure. Mitral inflow pattern and tissue Doppler imaging of mitral annulus revealed grade 1 diastolic dysfunction. There was variation of mitral and tricuspid inflow velocities exceeding 20%. CONCLUSIONS: 1. Study is of fair technical quality. Underlying sinus rhythm with frequent ventricular ectopy. 2. Normal LV size with preserved LV systolic function. Grade 1 diastolic dysfunction. 3. Normal RV size and systolic function. 4. No significant valvular disease. 5. Small to moderate-size pericardial effusion principally adjacent to right ventricular free wall and cardiac apex. No definite signs of cardiac compression. Fluctuation of mitral and tricuspid inflow velocities could be also caused by underlying chronic obstructive pulmonary disease (COPD). 6. Likely elevated central venous pressure. Unable to estimate pulmonary artery pressure.
== END ==
LOC: M CARPUL 08:52
PROVIDERS: ATTEND Nurse Practitioner Adult Health
DX: I31.3 Pericardial effusion (noninflammatory) (principal)

== ENCOUNTER → 2022-06-09 | Outpatient (CLI) | payer MEDICARE, MEDICAID ==
[~2022-06-09] MED LIST changes: +ALBU2.5V10 INH; +ALBU2.5V10 NEB; -ALBU83IN INH; -ALBU83IN NEB
== END ==
LOC: M RAD 12:24
PROVIDERS: ATTEND Internal Medicine Pulmonary Disease
DX: Z87.891 Personal history of nicotine dependence (principal)

== ENCOUNTER → 2022-06-21 | Outpatient (CLI) | payer MEDICARE, MEDICAID ==
[2022-06-21 18:49] LABS: ALBUMIN 4.3 GM/DL (3.2-5.2); ALT/SGPT 15 U/L (12-78); BILIRUBIN,TOTAL 0.5 MG/DL (0.2-1.0); BLOOD UREA NITROGEN 15 MG/DL (7-18); CALCIUM LEVEL 9.8 MG/DL (8.8-10.2); CARBON DIOXIDE LEVEL 29 MEQ/L (21-32); CHLORIDE LEVEL 103 MEQ/L (98-107); CREATININE FOR GFR 1.03 MG/DL (0.70-1.30); GLOMERULAR FILTRATION RATE > 60.0 (>49); GLUCOSE, FASTING 108 MG/DL (70-100); POTASSIUM SERUM 4.4 MEQ/L (3.5-5.1); SODIUM LEVEL 137 MEQ/L (136-145); TOTAL PROTEIN 7.2 GM/DL (6.4-8.2)
[2022-06-21 19:28] LABS: HEMOGLOBIN A1c 5.8 %
== END ==
LOC: M PLALAB 15:04
PROVIDERS: ATTEND Nurse Practitioner Adult Health
DX: Z13.1 Encounter for screening for diabetes mellitus (principal); J44.9 Chronic obstructive pulmonary disease, unspecified; Z79.899 Other long term (current) drug therapy

== ENCOUNTER 2023-06-17 08:54 | Inpatient (IN) | payer MEDICARE, MEDICAID ==
[~2023-06-17] VITALS: Ht 167.6 cm; Wt 62.8 kg
[2023-06-17] VITALS (7 sets, daily range): BP systolic 107–158; BP diastolic 71–98; TEMP 98–98.8; O2SAT 92–95
[2023-06-17] MEDS ORDERED: IPRATROPIUM 0.5MG/ALBUTEROL 2.5MG INH SOL UD 3ML (DUONEB) NEB ONE (09:00)
[2023-06-17] MEDS: CHLORHEXIDINE GLUCONATE 0.12 % 15ML UDC (PERIDEX ORAL RINSE) MT SCH ×2 (09:00→20:10)
[2023-06-17] MEDS ORDERED: ALBUTEROL SULFATE 2.5MG/0.5ML INH NEB SOLN INH ONE (09:00)
[2023-06-17 09:09] LABS: ABG BASE EXCESS -0.4 (-2.0-2.0); ABG HCO3 27.7 MMOL/L (22.0-26.0); ABG O2 SATURATION 99.4 % (95.0-99.0); ABG PARTIAL PRESSURE CO2 59.4 mmHg (35.0-45.0); ABG PARTIAL PRESSURE O2 160.7 mmHg (75.0-100.0); ABG STANDARD HCO3 24.2 MMOL/L. (22.0-26.0); ABG TOTAL CO2 29.6 MMOL/L (23.0-31.0); ABG pH (ARTERIAL) 7.287 UNITS (7.350-7.450)
[2023-06-17] MEDS ORDERED: methylPREDNISolone 125MG 2ML VIAL IV ONE (09:10)
[2023-06-17 09:16] LABS: BASO # 0.1 10^3/uL (0.0-0.2); BASO % 0.4 % (0.0-1.0); EOS % 0.1 % (0.0-3.0); HEMATOCRIT 46.1 % (42.0-52.0); HEMOGLOBIN 15.2 g/dl (13.5-17.5); LYMPH # 1.5 10^3/uL (1.5-5.0); LYMPH % 9.7 % (24.0-44.0); MEAN CORPUSCULAR HEMOGLOBIN 30.3 pg (27.0-33.0); MONO % 18.2 % (2.0-8.0); NEUTROPHILS # 11.1 10^3/uL (1.5-8.5); NEUTROPHILS % 71.2 % (36.0-66.0); PLATELET COUNT, AUTOMATED 464 10^3/uL (150-450); RED BLOOD COUNT 5.01 10^6/uL (4.30-6.10); WHITE BLOOD COUNT 15.6 10^3/uL (4.0-10.0)
[2023-06-17] MEDS ORDERED: cefTRIAXone SOD 2 GM in D5W MINI-BAG PLUS 50 ML IV ONE (09:20)
[2023-06-17 09:23] LABS: MONO # 2.8 10^3/uL (0.0-0.8)
[2023-06-17 09:24] LABS: INR 1.24; PROTHROMBIN TIME 15.2 SECONDS (12.5-14.5)
[2023-06-17 09:36] LABS: CPK CREATINE PHOSPHOKINASE 194 U/L (46-171)
[2023-06-17 09:37] LABS: ALKALINE PHOSPHATASE 127 U/L (46-116); ALT/SGPT 46 U/L (7.0-40); AST/SGOT 27 U/L (<34); BILIRUBIN,DIRECT 0.3 MG/DL (<0.4); BILIRUBIN,TOTAL 0.6 MG/DL (0.3-1.2); BLOOD UREA NITROGEN 17 MG/DL (9-23); CALCIUM LEVEL 9.7 MG/DL (8.3-10.6); CARBON DIOXIDE LEVEL 30 MMOL/L (20-31); CHLORIDE LEVEL 100 MMOL/L (98-107); CK-MB VALUE MASS 6.5 NG/ML (<3.6); CREATININE FOR GFR 0.67 MG/DL (0.70-1.30); GLOMERULAR FILTRATION RATE > 60.0 (>49); GLUCOSE, FASTING 154 MG/DL (74-106); MB/CK RELATIVE INDEX 3.35 (< OR =4); POTASSIUM SERUM 4.8 MMOL/L (3.5-5.1); SODIUM LEVEL 135 MMOL/L (136-145); TOTAL PROTEIN 6.4 G/DL (5.7-8.2)
[2023-06-17] MEDS ORDERED: EZET10TA21 PO (09:38)
[2023-06-17] MEDS ORDERED: MELO15TA28 PO (09:38)
[2023-06-17 09:39] LABS: THYROID STIMULATING HORMONE 1.833 uIU/ML (0.55-4.78)
[2023-06-17] MEDS ORDERED: NS 1,000 ML IV ONE (10:00)
[2023-06-17] MEDS ORDERED: ISOVUE-370 76% 100ML VIAL As Ordered ONE (10:14)
[2023-06-17 10:38] LABS: CK-MB VALUE MASS 5.4 NG/ML (<3.6)
[2023-06-17 10:45] LABS: MB/CK RELATIVE INDEX 2.84 (< OR =4)
[2023-06-17 10:57] LABS: PROCALCITONIN 0.23 ng/ml
[2023-06-17 11:02] LABS: ABG BASE EXCESS -0.8 (-2.0-2.0); ABG HCO3 25.8 MMOL/L (22.0-26.0); ABG O2 SATURATION 96.3 % (95.0-99.0); ABG PARTIAL PRESSURE CO2 50.5 mmHg (35.0-45.0); ABG PARTIAL PRESSURE O2 94.8 mmHg (75.0-100.0); ABG STANDARD HCO3 23.8 MMOL/L. (22.0-26.0); ABG TOTAL CO2 27.3 MMOL/L (23.0-31.0); ABG pH (ARTERIAL) 7.326 UNITS (7.350-7.450)
[2023-06-17] MEDS ORDERED: MED REC IN PROGRESS XX SCH (11:35)
[2023-06-17] MEDS ORDERED: MED REC CURRENTLY UNOBTAINABLE XX SCH (11:50)
[2023-06-17] MEDS: IPRATROPIUM 0.5MG/ALBUTEROL 2.5MG INH SOL UD 3ML (DUONEB) NEB SCH ×2 (13:03→19:23)
[2023-06-17] MEDS ORDERED: AZITHROMYCIN 250MG TABLET PO ONE (18:00)
[2023-06-17 18:15] LABS: VENOUS BASE EXCESS 2.7 (-2.0-2.0); VENOUS HCO3 28.9 MMOL/L (23.0-27.0); VENOUS O2 SATURATION 94.9 % (60.0-80.0); VENOUS PARTIAL PRESSURE CO2 50.5 mmHg (38.0-50.0); VENOUS PARTIAL PRESSURE O2 71.4 mmHg (30.0-50.0); VENOUS PH 7.376 UNITS (7.330-7.430); VENOUS STANDARD HCO3 26.8 MMOL/L; VENOUS TOTAL CO2 30.5 MMOL/L (24.0-28.0)
[2023-06-17] MEDS ORDERED: methylPREDNISolone 40MG 1ML VIAL IV ONE (20:00)
[2023-06-17] MEDS: guaiFENesin ER 600 MG TAB PO SCH (20:10)
[2023-06-17] MEDS ORDERED: COLC0.6T47 PO (20:50)
[2023-06-17] MEDS ORDERED: med rec comment (21:01)
[2023-06-17] MEDS ORDERED: HOME MED LIST COMPLETE! XX SCH (21:05)
[2023-06-17] MEDS: ATORVASTATIN 20 MG TAB PO SCH (21:25)
[2023-06-17] MEDS: FAMOTIDINE 20 MG TAB PO SCH (21:25)
[2023-06-18] VITALS (8 sets, daily range): BP systolic 91–114; BP diastolic 56–72; TEMP 97–98.5; O2SAT 91–96
[2023-06-18 04:33] LABS: BASO % 0.2 % (0.0-1.0); LYMPH # 1.1 10^3/uL (1.5-5.0); LYMPH % 8.5 % (24.0-44.0); MEAN CORPUSCULAR HEMOGLOBIN 30.4 pg (27.0-33.0); MEAN CORPUSCULAR HGB CONC 33.1 g/dl (32.0-36.5); NEUTROPHILS # 10.3 10^3/uL (1.5-8.5); NEUTROPHILS % 82.7 % (36.0-66.0); PLATELET COUNT, AUTOMATED 424 10^3/uL (150-450); RED BLOOD COUNT 4.24 10^6/uL (4.30-6.10); WHITE BLOOD COUNT 12.4 10^3/uL (4.0-10.0)
[2023-06-18 04:46] LABS: HEMOGLOBIN 12.9 g/dl (13.5-17.5)
[2023-06-18] MEDS: IPRATROPIUM 0.5MG/ALBUTEROL 2.5MG INH SOL UD 3ML (DUONEB) NEB SCH (07:54)
[2023-06-18] MEDS: CHLORHEXIDINE GLUCONATE 0.12 % 15ML UDC (PERIDEX ORAL RINSE) MT SCH (09:00)
[2023-06-18] MEDS: EZETIMIBE 10MG TABLET (ZETIA) PO SCH (09:49)
[2023-06-18] MEDS: ENOXAPARIN 40MG/0.4ML SYRINGE (J1650 PER 10MG) SC SCH (09:49)
[2023-06-18] MEDS: predniSONE 20 MG TAB PO SCH (09:49)
[2023-06-18] MEDS: guaiFENesin ER 600 MG TAB PO SCH ×2 (09:49→20:06)
[2023-06-18] MEDS: AZITHROMYCIN 250MG TABLET PO SCH (09:49)
[2023-06-18] MEDS: TIOTROPIUM INHALER/CAPSULE (SPIRIVA) INH SCH (12:45)
[2023-06-18] MEDS: FAMOTIDINE 20 MG TAB PO SCH (20:06)
[2023-06-18] MEDS: ATORVASTATIN 20 MG TAB PO SCH (20:07)
[2023-06-19] VITALS: BP 112/65; TEMP 98.3; O2SAT 98
[2023-06-19 04:00] VITALS: BP_SYST 119; BP_SYST 87; BP_DIAS 63; BP_DIAS 78; TEMP 97.6; O2SAT 96
[2023-06-19 04:38] LABS: BASO # 0.1 10^3/uL (0.0-0.2); BASO % 0.4 % (0.0-1.0); HEMATOCRIT 42.1 % (42.0-52.0); HEMOGLOBIN 13.9 g/dl (13.5-17.5); LYMPH # 2.3 10^3/uL (1.5-5.0); LYMPH % 10.9 % (24.0-44.0); MEAN CORPUSCULAR HEMOGLOBIN 30.6 pg (27.0-33.0); MEAN CORPUSCULAR VOLUME 92.7 fl (80.0-96.0); MONO % 7.7 % (2.0-8.0); NEUTROPHILS % 79.7 % (36.0-66.0); PLATELET COUNT, AUTOMATED 529 10^3/uL (150-450); RED BLOOD COUNT 4.54 10^6/uL (4.30-6.10); WHITE BLOOD COUNT 21.3 10^3/uL (4.0-10.0)
[2023-06-19 04:50] LABS: MONO # 1.7 10^3/uL (0.0-0.8)
[2023-06-19] MEDS: TIOTROPIUM INHALER/CAPSULE (SPIRIVA) INH SCH (07:18)
[2023-06-19 08:00] VITALS: BP 121/78; TEMP 98.9; O2SAT 91
[2023-06-19] MEDS ORDERED: IPRATROPIUM 0.5MG/ALBUTEROL 2.5MG INH SOL UD 3ML (DUONEB) NEB PRN (08:00)
[2023-06-19] MEDS: ENOXAPARIN 40MG/0.4ML SYRINGE (J1650 PER 10MG) SC SCH (09:33)
[2023-06-19] MEDS: predniSONE 20 MG TAB PO SCH (09:33)
[2023-06-19] MEDS: guaiFENesin ER 600 MG TAB PO SCH ×2 (09:34→20:51)
[2023-06-19] MEDS: AZITHROMYCIN 250MG TABLET PO SCH (09:34)
[2023-06-19] MEDS: EZETIMIBE 10MG TABLET (ZETIA) PO SCH (09:34)
[2023-06-19 12:00] VITALS: BP 142/85; TEMP 97.8; O2SAT 93
[2023-06-19] MEDS: ADVAIR HFA 115/21MCG INHALER INH SCH ×2 (12:27→19:12)
[2023-06-19] MEDS ORDERED: cefTRIAXone SOD 1 GM in D5W MINI-BAG PLUS 50 ML IV SCH (14:00)
[2023-06-19 14:49] LABS: PROCALCITONIN 0.17 ng/ml
[2023-06-19] MEDS: COLCHICINE 0.6 MG TABLET PO SCH (14:50)
[2023-06-19] MEDS: MELOXICAM (MOBIC) 7.5 MG TAB PO PRN (14:51)
[2023-06-19] MEDS: PANTOPRAZOLE 40MG TAB (PROTONIX) PO SCH (14:51)
[2023-06-19 16:00] VITALS: BP 118/73; TEMP 98.9; O2SAT 94
[2023-06-19 20:00] VITALS: BP 115/59; TEMP 97.5; O2SAT 95
[2023-06-19] MEDS: ATORVASTATIN 20 MG TAB PO SCH (20:51)
[2023-06-19 22:46] LABS: C REACTIVE PROTEIN QUANTITATIV 11.5 MG/DL (<1.0)
[2023-06-20] VITALS: BP 114/62; TEMP 97.5; O2SAT 95
[2023-06-20 04:26] VITALS: BP 98/61; TEMP 98.3; O2SAT 93
[2023-06-20 05:43] LABS: HEMATOCRIT 37.4 % (42.0-52.0); HEMOGLOBIN 12.2 g/dl (13.5-17.5); MEAN CORPUSCULAR HEMOGLOBIN 30.3 pg (27.0-33.0); MEAN CORPUSCULAR HGB CONC 32.6 g/dl (32.0-36.5); PLATELET COUNT, AUTOMATED 476 10^3/uL (150-450); RED BLOOD COUNT 4.02 10^6/uL (4.30-6.10); WHITE BLOOD COUNT 13.3 10^3/uL (4.0-10.0)
[2023-06-20 06:00] LABS: BLOOD UREA NITROGEN 21 MG/DL (9-23); CALCIUM LEVEL 8.8 MG/DL (8.3-10.6); CARBON DIOXIDE LEVEL 35 MMOL/L (20-31); CHLORIDE LEVEL 102 MMOL/L (98-107); CREATININE FOR GFR 0.83 MG/DL (0.70-1.30); GLOMERULAR FILTRATION RATE > 60.0 (>49); GLUCOSE, FASTING 107 MG/DL (74-106); SODIUM LEVEL 139 MMOL/L (136-145)
[2023-06-20 06:59] LABS: ATYPICAL LYMPH 15 % (0-5); LYMPHOCYTES 10 % (16-44); MONOCYTES 5 % (0-5); NEUTROPHILS 70 % (28-66)
[2023-06-20 07:00] LABS: PLATELET ESTIMATE NORMAL (NORMAL)
[2023-06-20] MEDS: ADVAIR HFA 115/21MCG INHALER INH SCH ×2 (07:31→20:57)
[2023-06-20] MEDS: TIOTROPIUM INHALER/CAPSULE (SPIRIVA) INH SCH (07:31)
[2023-06-20 08:00] VITALS: BP 105/65; TEMP 98.4; O2SAT 96
[2023-06-20] MEDS: EZETIMIBE 10MG TABLET (ZETIA) PO SCH (09:01)
[2023-06-20] MEDS: ENOXAPARIN 40MG/0.4ML SYRINGE (J1650 PER 10MG) SC SCH (09:01)
[2023-06-20] MEDS: MELOXICAM (MOBIC) 7.5 MG TAB PO PRN (09:01)
[2023-06-20] MEDS: AZITHROMYCIN 250MG TABLET PO SCH (09:02)
[2023-06-20] MEDS: PANTOPRAZOLE 40MG TAB (PROTONIX) PO SCH (09:02)
[2023-06-20] MEDS: COLCHICINE 0.6 MG TABLET PO SCH (09:02)
[2023-06-20] MEDS: predniSONE 20 MG TAB PO SCH (09:03)
[2023-06-20] MEDS: guaiFENesin ER 600 MG TAB PO SCH ×2 (09:03→20:30)
[2023-06-20] MEDS ORDERED: PRED10TA2 PO (09:20)
[2023-06-20] MEDS ORDERED: PRED20TA PO (09:20)
[2023-06-20] MEDS ORDERED: ALBU8.5H INH ×3 (09:20→10:46)
[2023-06-20] MEDS ORDERED: CEFD300C41 PO (09:21)
[2023-06-20] MEDS ORDERED: TIOT18INH INH (09:53)
[2023-06-20] MEDS ORDERED: ADVA115A INH (09:53)
[2023-06-20] MEDS ORDERED: ADV500INH INH (10:44)
[2023-06-20 11:07] LABS: ABG BASE EXCESS 5.8 (-2.0-2.0); ABG HCO3 30.3 MMOL/L (22.0-26.0); ABG O2 SATURATION 94.6 % (95.0-99.0); ABG PARTIAL PRESSURE CO2 43.6 mmHg (35.0-45.0); ABG PARTIAL PRESSURE O2 69.4 mmHg (75.0-100.0); ABG STANDARD HCO3 29.6 MMOL/L. (22.0-26.0); ABG TOTAL CO2 31.7 MMOL/L (23.0-31.0)
[2023-06-20 12:00] VITALS: BP 111/76; TEMP 98.3; O2SAT 94
[2023-06-20] MEDS: CEFDINIR 300 MG CAP (OMNICEF) PO SCH ×2 (14:24→20:30)
[2023-06-20 16:00] VITALS: BP 114/78; TEMP 98.3; O2SAT 95
[2023-06-20 20:00] VITALS: BP 120/77; TEMP 98.2; O2SAT 95
[2023-06-20] MEDS ORDERED: ACETAMINOPHEN TAB 650MG DOSE (2X325MG) PO PRN (20:20)
[2023-06-20] MEDS: ATORVASTATIN 20 MG TAB PO SCH (20:30)
[2023-06-21] VITALS: BP 125/75; TEMP 97.7; O2SAT 90
[2023-06-21 04:00] VITALS: BP 121/78; TEMP 97.7; O2SAT 90
[2023-06-21 05:21] LABS: ABG pH (ARTERIAL) 7.428 UNITS (7.350-7.450)
[2023-06-21 05:22] LABS: ABG BASE EXCESS 4.4 (-2.0-2.0); ABG HCO3 29.5 MMOL/L (22.0-26.0); ABG O2 SATURATION 93.3 % (95.0-99.0); ABG PARTIAL PRESSURE CO2 45.7 mmHg (35.0-45.0); ABG PARTIAL PRESSURE O2 65.4 mmHg (75.0-100.0); ABG STANDARD HCO3 28.3 MMOL/L. (22.0-26.0); ABG TOTAL CO2 30.9 MMOL/L (23.0-31.0)
[2023-06-21 06:01] LABS: HEMATOCRIT 40.9 % (42.0-52.0); HEMOGLOBIN 13.8 g/dl (13.5-17.5); MEAN CORPUSCULAR HEMOGLOBIN 30.7 pg (27.0-33.0); MEAN CORPUSCULAR HGB CONC 33.7 g/dl (32.0-36.5); MEAN CORPUSCULAR VOLUME 90.9 fl (80.0-96.0); PLATELET COUNT, AUTOMATED 518 10^3/uL (150-450); WHITE BLOOD COUNT 14.7 10^3/uL (4.0-10.0)
[2023-06-21 07:01] LABS: ATYPICAL LYMPH 4 % (0-5); LYMPHOCYTES 13 % (16-44); MONOCYTES 5 % (0-5); NEUTROPHILS 78 % (28-66)
[2023-06-21 07:02] LABS: PLATELET ESTIMATE INCREASED (NORMAL)
[2023-06-21 07:57] VITALS: BP 130/83; TEMP 97.4; O2SAT 94
[2023-06-21] MEDS: COLCHICINE 0.6 MG TABLET PO SCH (07:58)
[2023-06-21] MEDS: guaiFENesin ER 600 MG TAB PO SCH (07:59)
[2023-06-21] MEDS: CEFDINIR 300 MG CAP (OMNICEF) PO SCH (07:59)
[2023-06-21] MEDS: EZETIMIBE 10MG TABLET (ZETIA) PO SCH (07:59)
[2023-06-21] MEDS: MELOXICAM (MOBIC) 7.5 MG TAB PO PRN (07:59)
[2023-06-21] MEDS: AZITHROMYCIN 250MG TABLET PO SCH (07:59)
[2023-06-21] MEDS: predniSONE 20 MG TAB PO SCH (07:59)
[2023-06-21] MEDS: PANTOPRAZOLE 40MG TAB (PROTONIX) PO SCH (07:59)
[2023-06-21] MEDS: ENOXAPARIN 40MG/0.4ML SYRINGE (J1650 PER 10MG) SC SCH (08:00)
[2023-06-21] MEDS: TIOTROPIUM INHALER/CAPSULE (SPIRIVA) INH SCH (08:56)
[2023-06-21] MEDS: ADVAIR HFA 115/21MCG INHALER INH SCH (08:57)
== END 2023-06-21 15:30 | disposition home health service (06) | DRG 177 ==
LOC: M ED 08:54 → M ED INP 12:42 → M ICU 14:41
PROVIDERS: ADMIT Internal Medicine Pulmonary Disease; ATTEND Internal Medicine
DX: J15.6 Pneumonia due to other Gram-negative bacteria (principal); J96.22 Acute and chronic respiratory failure with hypercapnia; J96.21 Acute and chronic respiratory failure with hypoxia; J44.1 Chronic obstructive pulmonary disease with (acute) exacerbation; J44.0 Chronic obstructive pulmonary disease with (acute) lower respiratory infection; E03.9 Hypothyroidism, unspecified; K21.9 Gastro-esophageal reflux disease without esophagitis; E78.5 Hyperlipidemia, unspecified; M19.90 Unspecified osteoarthritis, unspecified site; M10.9 Gout, unspecified; Z99.81 Dependence on supplemental oxygen; F31.9 Bipolar disorder, unspecified; M54.50 Low back pain, unspecified; F90.9 Attention-deficit hyperactivity disorder, unspecified type; Z79.899 Other long term (current) drug therapy

== ENCOUNTER → 2023-08-24 | Outpatient (REF) | payer MEDICARE, MEDICAID ==
[~2023-08-24] MED LIST changes: +ADVA115A INH; +CEFD300C42 PO; +EZET10TA21 PO; +PRED20TA PO; +TIOT18INH INH; +med rec comment
[2023-08-24 18:18] LABS: HEMATOCRIT 46.9 % (42.0-52.0); HEMOGLOBIN 15.5 g/dl (13.5-17.5); MEAN CORPUSCULAR HEMOGLOBIN 30.7 pg (27.0-33.0); MEAN CORPUSCULAR VOLUME 92.9 fl (80.0-96.0); PLATELET COUNT, AUTOMATED 358 10^3/uL (150-450); RED BLOOD COUNT 5.05 10^6/uL (4.30-6.10); WHITE BLOOD COUNT 10.3 10^3/uL (4.0-10.0)
[2023-08-24 18:37] LABS: HEMOGLOBIN A1c 5.2 % (4.0-6.0)
[2023-08-24 18:45] LABS: ALBUMIN 4.2 G/DL (3.2-5.2); ALKALINE PHOSPHATASE 82 U/L (46-116); ALT/SGPT 19 U/L (7.0-40); AST/SGOT 14 U/L (<34); BILIRUBIN,TOTAL 0.5 MG/DL (0.3-1.2); BLOOD UREA NITROGEN 9 MG/DL (9-23); CALCIUM LEVEL 9.9 MG/DL (8.3-10.6); CARBON DIOXIDE LEVEL 31 MMOL/L (20-31); CHLORIDE LEVEL 101 MMOL/L (98-107); CHOLESTEROL LEVEL 152 MG/DL (<200); CHOLESTEROL RISK RATIO 2.17 (<5); CREATININE FOR GFR 0.82 MG/DL (0.70-1.30); GLOMERULAR FILTRATION RATE > 60.0 (>49); GLUCOSE, FASTING 107 MG/DL (74-106); HDL CHOLESTEROL 69.9 MG/DL (>40); LDL CHOLESTEROL 69.3 MG/DL (<100); NON-HDL-C 82.1 MG/DL; SODIUM LEVEL 139 MMOL/L (136-145); TOTAL 25(OH) VITAMIN D 31.6 NG/ML (20.0-100.0); TOTAL PROTEIN 6.7 G/DL (5.7-8.2); TRIGLYCERIDES LEVEL 64 MG/DL (<150)
== END ==
LOC: M LABDRAWP 17:19
PROVIDERS: ATTEND Nurse Practitioner Adult Health
DX: I27.20 Pulmonary hypertension, unspecified (principal); E55.9 Vitamin D deficiency, unspecified; I25.10 Atherosclerotic heart disease of native coronary artery without angina pectoris; R73.9 Hyperglycemia, unspecified

== ENCOUNTER 2023-09-05 11:31 | Inpatient (IN) | payer MEDICARE, MEDICAID ==
[~2023-09-05] VITALS: Ht 170.2 cm; Wt 55.7 kg
[~2023-09-05 11:31] MED LIST changes: +CEFD1CAP9 PO; -CEFD300C42 PO
[2023-09-05] MEDS: IPRATROPIUM 0.5MG/ALBUTEROL 2.5MG INH SOL UD 3ML (DUONEB) NEB SCH ×4 (11:52→20:02)
[2023-09-05 11:59] LABS: BASO % 0.2 % (0.0-1.0); EOS % 0.1 % (0.0-3.0); HEMATOCRIT 47.7 % (42.0-52.0); HEMOGLOBIN 16.2 g/dl (13.5-17.5); LYMPH # 1.2 10^3/uL (1.5-5.0); LYMPH % 6.3 % (24.0-44.0); MEAN CORPUSCULAR HEMOGLOBIN 30.7 pg (27.0-33.0); MEAN CORPUSCULAR VOLUME 90.5 fl (80.0-96.0); MONO % 10.8 % (2.0-8.0); NEUTROPHILS # 16.2 10^3/uL (1.5-8.5); PLATELET COUNT, AUTOMATED 389 10^3/uL (150-450); RED BLOOD COUNT 5.27 10^6/uL (4.30-6.10); WHITE BLOOD COUNT 19.7 10^3/uL (4.0-10.0)
[2023-09-05 12:09] LABS: ABG HCO3 24.7 MMOL/L (22.0-26.0); ABG O2 SATURATION 94.2 % (95.0-99.0); ABG PARTIAL PRESSURE CO2 44.6 mmHg (35.0-45.0); ABG PARTIAL PRESSURE O2 71.8 mmHg (75.0-100.0); ABG STANDARD HCO3 23.6 MMOL/L. (22.0-26.0); ABG TOTAL CO2 26.1 MMOL/L (23.0-31.0); ABG pH (ARTERIAL) 7.362 UNITS (7.350-7.450)
[2023-09-05 12:23] LABS: MONO # 2.1 10^3/uL (0.0-0.8)
[2023-09-05 12:32] LABS: CK-MB VALUE MASS 2.5 NG/ML (<3.6); MB/CK RELATIVE INDEX 2.11 (< OR =4)
[2023-09-05] MEDS ORDERED: ISOVUE-370 76% 100ML VIAL As Ordered ONE (14:44)
[2023-09-05] MEDS ORDERED: methylPREDNISolone 125MG 2ML VIAL IV ONE (17:05)
[2023-09-05] MEDS ORDERED: MED REC IN PROGRESS XX SCH (17:05)
[2023-09-05] MEDS ORDERED: ATOR40TA75 PO (17:22)
[2023-09-05 18:05] VITALS: BP 135/79; TEMP 97.7; O2SAT 68
[2023-09-05 18:08] LABS: PROCALCITONIN 0.06 ng/ml
[2023-09-05] MEDS ORDERED: AZITHROMYCIN INJ 500 MG, VIAL MATE ADAPTER 1 EACH in NS 250 ML IV SCH (19:00)
[2023-09-05 19:42] VITALS: BP 100/60; TEMP 97.9; O2SAT 90
[2023-09-05 20:06] VITALS: O2SAT 93
[2023-09-05] MEDS: METOPROLOL TART 12.5 MG PER 1/2 TAB PO SCH (23:33)
[2023-09-05] MEDS: IPRATROPIUM 0.5MG/ALBUTEROL 2.5MG INH SOL UD 3ML (DUONEB) NEB PRN (23:37)
[2023-09-06] VITALS (7 sets, daily range): BP systolic 110–124; BP diastolic 64–86; TEMP 97.7–98.1; O2SAT 88–93
[2023-09-06] MEDS ORDERED: INCR1INH INH (00:13)
[2023-09-06] MEDS ORDERED: ADVA115A INH (00:13)
[2023-09-06] MEDS ORDERED: ALBU2.5V10 INH (00:13)
[2023-09-06] MEDS ORDERED: ASPE4LIQ TOP (00:13)
[2023-09-06] MEDS ORDERED: ALBU8.5H INH (00:13)
[2023-09-06] MEDS ORDERED: HOME MED LIST COMPLETE! XX SCH (00:15)
[2023-09-06] MEDS: IPRATROPIUM 0.5MG/ALBUTEROL 2.5MG INH SOL UD 3ML (DUONEB) NEB SCH ×4 (01:29→20:34)
[2023-09-06 05:40] LABS: HEMATOCRIT 43.2 % (42.0-52.0); HEMOGLOBIN 14.7 g/dl (13.5-17.5); MEAN CORPUSCULAR HEMOGLOBIN 30.8 pg (27.0-33.0); MEAN CORPUSCULAR VOLUME 90.4 fl (80.0-96.0); PLATELET COUNT, AUTOMATED 369 10^3/uL (150-450); RED BLOOD COUNT 4.78 10^6/uL (4.30-6.10); WHITE BLOOD COUNT 14.2 10^3/uL (4.0-10.0)
[2023-09-06 06:09] LABS: BLOOD UREA NITROGEN 24 MG/DL (9-23); CALCIUM LEVEL 9.5 MG/DL (8.3-10.6); CARBON DIOXIDE LEVEL 31 MMOL/L (20-31); CHLORIDE LEVEL 99 MMOL/L (98-107); CREATININE FOR GFR 0.85 MG/DL (0.70-1.30); GLOMERULAR FILTRATION RATE > 60.0 (>49); GLUCOSE, FASTING 146 MG/DL (74-106); MAGNESIUM LEVEL 2.3 MG/DL (1.8-2.4); POTASSIUM SERUM 4.8 MMOL/L (3.5-5.1); SODIUM LEVEL 136 MMOL/L (136-145)
[2023-09-06 06:20] LABS: PROCALCITONIN 0.21 ng/ml
[2023-09-06] MEDS ORDERED: PANTOPRAZOLE 40MG TAB (PROTONIX) PO SCH (09:00)
[2023-09-06] MEDS ORDERED: ADVAIR HFA 115/21MCG INHALER INH SCH (09:00)
[2023-09-06] MEDS ORDERED: predniSONE 20 MG TAB PO SCH (09:00)
[2023-09-06] MEDS: IPRATROPIUM 0.5MG/ALBUTEROL 2.5MG INH SOL UD 3ML (DUONEB) NEB PRN ×2 (09:13→22:49)
[2023-09-06] MEDS: METOPROLOL TART 12.5 MG PER 1/2 TAB PO SCH ×2 (09:29→20:53)
[2023-09-06] MEDS: ATORVASTATIN 20 MG TAB PO SCH (09:29)
[2023-09-06] MEDS: ENOXAPARIN 40MG/0.4ML SYRINGE (J1650 PER 10MG) SC SCH (09:30)
[2023-09-06] MEDS: methylPREDNISolone 125MG 2ML VIAL IV SCH ×2 (10:58→18:19)
[2023-09-06] MEDS: EZETIMIBE 10MG TABLET (ZETIA) PO SCH (10:58)
[2023-09-06] MEDS: AZITHROMYCIN 250MG TABLET PO SCH (10:58)
[2023-09-06] MEDS: TIOTROPIUM INHALER/CAPSULE (SPIRIVA) INH SCH (12:11)
[2023-09-06] MEDS: COLCHICINE 0.6 MG TABLET PO SCH (12:15)
[2023-09-06] MEDS ORDERED: MELOXICAM (MOBIC) 7.5 MG TAB PO PRN (14:20)
[2023-09-06] MEDS: ADVAIR HFA 115/21MCG INHALER INH SCH (20:35)
[2023-09-06] MEDS: FAMOTIDINE 20 MG TAB PO SCH (20:54)
[2023-09-07] MEDS: methylPREDNISolone 125MG 2ML VIAL IV SCH ×3 (01:48→18:09)
[2023-09-07] MEDS: IPRATROPIUM 0.5MG/ALBUTEROL 2.5MG INH SOL UD 3ML (DUONEB) NEB SCH ×7 (03:05→23:14)
[2023-09-07 05:58] VITALS: BP 108/60; TEMP 97.9; O2SAT 95
[2023-09-07] MEDS: ADVAIR HFA 115/21MCG INHALER INH SCH ×2 (07:23→19:53)
[2023-09-07] MEDS: TIOTROPIUM INHALER/CAPSULE (SPIRIVA) INH SCH (07:23)
[2023-09-07 07:52] VITALS: BP 125/83; TEMP 98.6; O2SAT 92
[2023-09-07] MEDS: ATORVASTATIN 20 MG TAB PO SCH (08:57)
[2023-09-07] MEDS: COLCHICINE 0.6 MG TABLET PO SCH (08:57)
[2023-09-07] MEDS: ENOXAPARIN 40MG/0.4ML SYRINGE (J1650 PER 10MG) SC SCH (08:57)
[2023-09-07] MEDS: EZETIMIBE 10MG TABLET (ZETIA) PO SCH (08:58)
[2023-09-07] MEDS: METOPROLOL TART 12.5 MG PER 1/2 TAB PO SCH ×2 (08:58→20:30)
[2023-09-07 11:17] LABS: BASO % 0.1 % (0.0-1.0); HEMATOCRIT 42.4 % (42.0-52.0); HEMOGLOBIN 14.5 g/dl (13.5-17.5); LYMPH # 0.7 10^3/uL (1.5-5.0); LYMPH % 4.3 % (24.0-44.0); MEAN CORPUSCULAR HEMOGLOBIN 31.2 pg (27.0-33.0); MEAN CORPUSCULAR HGB CONC 34.2 g/dl (32.0-36.5); MEAN CORPUSCULAR VOLUME 91.2 fl (80.0-96.0); MONO # 1.4 10^3/uL (0.0-0.8); MONO % 9.3 % (2.0-8.0); NEUTROPHILS # 13.3 10^3/uL (1.5-8.5); PLATELET COUNT, AUTOMATED 425 10^3/uL (150-450); RED BLOOD COUNT 4.65 10^6/uL (4.30-6.10); WHITE BLOOD COUNT 15.5 10^3/uL (4.0-10.0)
[2023-09-07 11:48] LABS: BLOOD UREA NITROGEN 27 MG/DL (9-23); CALCIUM LEVEL 9.9 MG/DL (8.3-10.6); CARBON DIOXIDE LEVEL 30 MMOL/L (20-31); CHLORIDE LEVEL 99 MMOL/L (98-107); CREATININE FOR GFR 0.66 MG/DL (0.70-1.30); GLOMERULAR FILTRATION RATE > 60.0 (>49); GLUCOSE, FASTING 179 MG/DL (74-106); POTASSIUM SERUM 4.5 MMOL/L (3.5-5.1); SODIUM LEVEL 136 MMOL/L (136-145)
[2023-09-07 12:00] LABS: PROCALCITONIN 0.13 ng/ml
[2023-09-07] MEDS: AZITHROMYCIN 250MG TABLET PO SCH (13:04)
[2023-09-07] MEDS: cefTRIAXone SOD 1 GM in D5W MINI-BAG PLUS 50 ML IV SCH (13:05)
[2023-09-07 14:29] VITALS: BP 121/74; TEMP 98.1; O2SAT 91
[2023-09-07 19:55] VITALS: O2SAT 91
[2023-09-07] MEDS: FAMOTIDINE 20 MG TAB PO SCH (20:30)
[2023-09-07 21:00] VITALS: BP 110/60; TEMP 97.3; O2SAT 90
[2023-09-08] MEDS: methylPREDNISolone 125MG 2ML VIAL IV SCH ×3 (01:24→19:58)
[2023-09-08] MEDS: IPRATROPIUM 0.5MG/ALBUTEROL 2.5MG INH SOL UD 3ML (DUONEB) NEB SCH ×6 (03:32→23:00)
[2023-09-08 05:28] VITALS: BP 108/61; TEMP 97.5; O2SAT 96
[2023-09-08 06:44] LABS: BASO % 0.1 % (0.0-1.0); HEMATOCRIT 39.7 % (42.0-52.0); HEMOGLOBIN 13.3 g/dl (13.5-17.5); LYMPH # 0.7 10^3/uL (1.5-5.0); LYMPH % 5.1 % (24.0-44.0); MEAN CORPUSCULAR HEMOGLOBIN 30.6 pg (27.0-33.0); MEAN CORPUSCULAR HGB CONC 33.5 g/dl (32.0-36.5); MEAN CORPUSCULAR VOLUME 91.3 fl (80.0-96.0); MONO # 0.9 10^3/uL (0.0-0.8); MONO % 6.2 % (2.0-8.0); NEUTROPHILS # 12.2 10^3/uL (1.5-8.5); NEUTROPHILS % 88.3 % (36.0-66.0); PLATELET COUNT, AUTOMATED 380 10^3/uL (150-450); RED BLOOD COUNT 4.35 10^6/uL (4.30-6.10); WHITE BLOOD COUNT 13.8 10^3/uL (4.0-10.0)
[2023-09-08] MEDS: TIOTROPIUM INHALER/CAPSULE (SPIRIVA) INH SCH (07:32)
[2023-09-08] MEDS: ADVAIR HFA 115/21MCG INHALER INH SCH ×2 (07:33→19:40)
[2023-09-08] MEDS: ENOXAPARIN 40MG/0.4ML SYRINGE (J1650 PER 10MG) SC SCH (08:52)
[2023-09-08] MEDS: COLCHICINE 0.6 MG TABLET PO SCH (08:52)
[2023-09-08] MEDS: EZETIMIBE 10MG TABLET (ZETIA) PO SCH (08:52)
[2023-09-08] MEDS: ATORVASTATIN 20 MG TAB PO SCH (08:52)
[2023-09-08] MEDS: METOPROLOL TART 12.5 MG PER 1/2 TAB PO SCH ×2 (08:54→19:58)
[2023-09-08] MEDS: AZITHROMYCIN 250MG TABLET PO SCH (12:08)
[2023-09-08] MEDS: cefTRIAXone SOD 1 GM in D5W MINI-BAG PLUS 50 ML IV SCH (12:08)
[2023-09-08 14:00] VITALS: BP 120/60; TEMP 98.8; O2SAT 93
[2023-09-08] MEDS: FAMOTIDINE 20 MG TAB PO SCH (19:58)
[2023-09-08 20:00] VITALS: BP 112/78; TEMP 98.4; O2SAT 93
[2023-09-09] MEDS: IPRATROPIUM 0.5MG/ALBUTEROL 2.5MG INH SOL UD 3ML (DUONEB) NEB SCH ×2 (03:36→07:56)
[2023-09-09 06:00] VITALS: BP 104/70; TEMP 97.9; O2SAT 94
[2023-09-09 06:20] LABS: BASO % 0.1 % (0.0-1.0); HEMATOCRIT 41.2 % (42.0-52.0); HEMOGLOBIN 13.7 g/dl (13.5-17.5); LYMPH # 0.8 10^3/uL (1.5-5.0); LYMPH % 6.2 % (24.0-44.0); MEAN CORPUSCULAR HEMOGLOBIN 30.7 pg (27.0-33.0); MEAN CORPUSCULAR HGB CONC 33.3 g/dl (32.0-36.5); MEAN CORPUSCULAR VOLUME 92.4 fl (80.0-96.0); MONO # 0.9 10^3/uL (0.0-0.8); NEUTROPHILS % 85.8 % (36.0-66.0); PLATELET COUNT, AUTOMATED 419 10^3/uL (150-450); RED BLOOD COUNT 4.46 10^6/uL (4.30-6.10); WHITE BLOOD COUNT 12.8 10^3/uL (4.0-10.0)
[2023-09-09] MEDS: TIOTROPIUM INHALER/CAPSULE (SPIRIVA) INH SCH (07:55)
[2023-09-09] MEDS: ADVAIR HFA 115/21MCG INHALER INH SCH ×2 (07:56→19:41)
[2023-09-09] MEDS: ATORVASTATIN 20 MG TAB PO SCH (08:48)
[2023-09-09] MEDS: ENOXAPARIN 40MG/0.4ML SYRINGE (J1650 PER 10MG) SC SCH (08:48)
[2023-09-09] MEDS: EZETIMIBE 10MG TABLET (ZETIA) PO SCH (08:48)
[2023-09-09] MEDS: METOPROLOL TART 12.5 MG PER 1/2 TAB PO SCH ×2 (08:48→19:52)
[2023-09-09] MEDS: methylPREDNISolone 125MG 2ML VIAL IV SCH ×2 (08:48→19:52)
[2023-09-09] MEDS: COLCHICINE 0.6 MG TABLET PO SCH (08:49)
[2023-09-09] MEDS: LEVALBUTEROL 1.25MG 0.5ML CONCENTRATE NEB INH SCH ×4 (11:21→23:25)
[2023-09-09] MEDS: cefTRIAXone SOD 1 GM in D5W MINI-BAG PLUS 50 ML IV SCH (13:41)
[2023-09-09 14:00] VITALS: BP 130/78; TEMP 98.2; O2SAT 93
[2023-09-09] MEDS: FAMOTIDINE 20 MG TAB PO SCH (19:52)
[2023-09-09 20:00] VITALS: BP 111/76; TEMP 98.1; O2SAT 95
[2023-09-10] MEDS: LEVALBUTEROL 1.25MG 0.5ML CONCENTRATE NEB INH SCH ×6 (03:09→23:21)
[2023-09-10 06:00] VITALS: BP 113/65; TEMP 97.9; O2SAT 94
[2023-09-10 06:04] LABS: BASO % 0.3 % (0.0-1.0); HEMATOCRIT 42.3 % (42.0-52.0); HEMOGLOBIN 14.2 g/dl (13.5-17.5); LYMPH # 1.2 10^3/uL (1.5-5.0); LYMPH % 7.5 % (24.0-44.0); MEAN CORPUSCULAR HEMOGLOBIN 30.9 pg (27.0-33.0); MEAN CORPUSCULAR HGB CONC 33.6 g/dl (32.0-36.5); MONO # 1.1 10^3/uL (0.0-0.8); MONO % 6.8 % (2.0-8.0); NEUTROPHILS # 13.4 10^3/uL (1.5-8.5); PLATELET COUNT, AUTOMATED 433 10^3/uL (150-450); WHITE BLOOD COUNT 15.9 10^3/uL (4.0-10.0)
[2023-09-10] MEDS: TIOTROPIUM INHALER/CAPSULE (SPIRIVA) INH SCH (07:48)
[2023-09-10] MEDS: ADVAIR HFA 115/21MCG INHALER INH SCH ×2 (07:48→20:03)
[2023-09-10] MEDS: ENOXAPARIN 40MG/0.4ML SYRINGE (J1650 PER 10MG) SC SCH (08:16)
[2023-09-10] MEDS: ATORVASTATIN 20 MG TAB PO SCH (08:16)
[2023-09-10] MEDS: EZETIMIBE 10MG TABLET (ZETIA) PO SCH (08:16)
[2023-09-10] MEDS: methylPREDNISolone 125MG 2ML VIAL IV SCH (08:16)
[2023-09-10] MEDS: METOPROLOL TART 12.5 MG PER 1/2 TAB PO SCH ×2 (08:16→20:10)
[2023-09-10] MEDS: COLCHICINE 0.6 MG TABLET PO SCH (08:16)
[2023-09-10] MEDS: CEFDINIR 300 MG CAP (OMNICEF) PO SCH ×2 (12:05→20:10)
[2023-09-10 14:00] VITALS: BP 120/75; TEMP 98.1; O2SAT 92
[2023-09-10 20:00] VITALS: BP 116/73; TEMP 97.7; O2SAT 96
[2023-09-10 20:10] VITALS: BP 130/68
[2023-09-10] MEDS: FAMOTIDINE 20 MG TAB PO SCH (20:10)
[2023-09-11] MEDS: LEVALBUTEROL 1.25MG 0.5ML CONCENTRATE NEB INH SCH ×3 (03:13→11:40)
[2023-09-11 06:00] VITALS: BP 131/79; TEMP 97.9; O2SAT 95
[2023-09-11] MEDS: TIOTROPIUM INHALER/CAPSULE (SPIRIVA) INH SCH (07:34)
[2023-09-11] MEDS: ADVAIR HFA 115/21MCG INHALER INH SCH (07:35)
[2023-09-11] MEDS: ENOXAPARIN 40MG/0.4ML SYRINGE (J1650 PER 10MG) SC SCH (08:21)
[2023-09-11] MEDS: COLCHICINE 0.6 MG TABLET PO SCH (08:21)
[2023-09-11] MEDS: METOPROLOL TART 12.5 MG PER 1/2 TAB PO SCH (08:21)
[2023-09-11] MEDS: ATORVASTATIN 20 MG TAB PO SCH (08:21)
[2023-09-11] MEDS: EZETIMIBE 10MG TABLET (ZETIA) PO SCH (08:21)
[2023-09-11] MEDS: CEFDINIR 300 MG CAP (OMNICEF) PO SCH (08:21)
[2023-09-11] MEDS ORDERED: predniSONE 20 MG TAB PO SCH (09:00)
[2023-09-11] MEDS ORDERED: PRED20TA PO (10:10)
[2023-09-11] MEDS ORDERED: METO1TAB87 PO (10:10)
[2023-09-11] MEDS ORDERED: PRED10TA2 PO (10:10)
[2023-09-11] MEDS ORDERED: CEFD300CAP PO (10:10)
[2023-09-11] MEDS ORDERED: IPRA0.00 INH (10:10)
== END 2023-09-11 13:25 | disposition home health service (06) | DRG 177 ==
LOC: M ED 11:31 → M ED INP 17:02 → OBSVTOIN 17:02 → ENRESERV 17:32 → M MSPAV 18:00
PROVIDERS: ADMIT Internal Medicine; ATTEND Internal Medicine
DX: J15.69 Pneumonia due to other Gram-negative bacteria (principal); J96.21 Acute and chronic respiratory failure with hypoxia; J44.0 Chronic obstructive pulmonary disease with (acute) lower respiratory infection; J44.1 Chronic obstructive pulmonary disease with (acute) exacerbation; K21.9 Gastro-esophageal reflux disease without esophagitis; M10.9 Gout, unspecified; E78.5 Hyperlipidemia, unspecified; D72.829 Elevated white blood cell count, unspecified; R26.89 Other abnormalities of gait and mobility; Z99.81 Dependence on supplemental oxygen; E03.9 Hypothyroidism, unspecified; F31.9 Bipolar disorder, unspecified; Z79.899 Other long term (current) drug therapy; R00.0 Tachycardia, unspecified

== ENCOUNTER → 2024-08-20 | Outpatient (CLI) | payer MEDICARE, MEDICAID ==
[~2024-08-20] MED LIST changes: +ASPE4LIQ TOP; +ATOR40TA75 PO; +CEFD300CAP PO; +INCR1INH INH; +IPRA0.00 INH; +METO1TAB87 PO
[2024-08-20 13:35] LABS: HEMATOCRIT 42.5 % (42.0-52.0); HEMOGLOBIN 13.7 g/dl (13.5-17.5); MEAN CORPUSCULAR HEMOGLOBIN 30.8 pg (27.0-33.0); MEAN CORPUSCULAR HGB CONC 32.2 g/dl (32.0-36.5); MEAN CORPUSCULAR VOLUME 95.5 fl (80.0-96.0); PLATELET COUNT, AUTOMATED 342 10^3/uL (150-450); RED BLOOD COUNT 4.45 10^6/uL (4.30-6.10); WHITE BLOOD COUNT 10.6 10^3/uL (4.0-10.0)
[2024-08-20 13:54] LABS: HEMOGLOBIN A1c 5.7 % (4.0-6.0)
[2024-08-20 13:56] LABS: ALBUMIN 3.7 G/DL (3.2-5.2); ALKALINE PHOSPHATASE 78 U/L (40-129); ALT/SGPT 22 U/L (7.0-40); AST/SGOT 12 U/L (<34); BILIRUBIN,TOTAL 0.4 MG/DL (0.3-1.2); BLOOD UREA NITROGEN 19 MG/DL (9-23); CALCIUM LEVEL 9.7 MG/DL (8.3-10.6); CARBON DIOXIDE LEVEL 31 MMOL/L (20-31); CHLORIDE LEVEL 107 MMOL/L (98-107); CHOLESTEROL LEVEL 138 MG/DL (<200); CHOLESTEROL RISK RATIO 1.77 (<5); GLOMERULAR FILTRATION RATE > 60.0 (>49); GLUCOSE, FASTING 96 MG/DL (74-106); HDL CHOLESTEROL 77.6 MG/DL (>40); LDL CHOLESTEROL 53.8 MG/DL (<100); NON-HDL-C 60.4 MG/DL; POTASSIUM SERUM 4.4 MMOL/L (3.5-5.1); SODIUM LEVEL 141 MMOL/L (136-145); TOTAL 25(OH) VITAMIN D 32.8 NG/ML (20.0-100.0); TRIGLYCERIDES LEVEL 33 MG/DL (<150)
== END ==
LOC: M PLALAB 10:46
PROVIDERS: ATTEND Nurse Practitioner Adult Health
DX: I27.20 Pulmonary hypertension, unspecified (principal); R73.9 Hyperglycemia, unspecified; E55.9 Vitamin D deficiency, unspecified; I25.10 Atherosclerotic heart disease of native coronary artery without angina pectoris

== ENCOUNTER → 2024-11-19 | Outpatient (CLI) | payer MEDICARE, MEDICAID ==
[~2024-11-19] MED LIST changes: -ADV250INH INH; -ADV500INH INH; +ADVA1AER10 INH; +ADVA1AER9 INH
== END ==
LOC: M RAD 12:11
PROVIDERS: ATTEND Internal Medicine Pulmonary Disease
DX: Z12.2 Encounter for screening for malignant neoplasm of respiratory organs (principal); Z87.891 Personal history of nicotine dependence; J43.9 Emphysema, unspecified; I70.0 Atherosclerosis of aorta; I25.10 Atherosclerotic heart disease of native coronary artery without angina pectoris

== ENCOUNTER 2024-12-12 15:34 | Inpatient (IN) | payer MEDICARE, MEDICAID ==
[~2024-12-12] VITALS: Ht 167.6 cm; Wt 57.7 kg
[2024-12-12] MEDS: dexAMETHasone 20MG/5ML VIAL IV ONE (15:40)
[2024-12-12] MEDS: IPRATROPIUM 0.5MG/ALBUTEROL 2.5MG INH SOL UD 3ML (DUONEB) NEB PRN (15:51)
[2024-12-12 16:06] LABS: ABG BASE EXCESS 1.4 (-2.0-2.0); ABG O2 SATURATION 93.9 % (95.0-99.0); ABG PARTIAL PRESSURE CO2 46.3 mmHg (35.0-45.0); ABG PARTIAL PRESSURE O2 70.4 mmHg (75.0-100.0); ABG STANDARD HCO3 25.6 MMOL/L. (22.0-26.0); ABG TOTAL CO2 28.4 MMOL/L (23.0-31.0); ABG pH (ARTERIAL) 7.384 UNITS (7.350-7.450)
[2024-12-12 16:08] LABS: BASO # 0.1 10^3/uL (0.0-0.2); BASO % 0.3 % (0.0-1.0); EOS % 0.1 % (0.0-3.0); HEMATOCRIT 45.6 % (42.0-52.0); HEMOGLOBIN 15.2 g/dl (13.5-17.5); LYMPH # 1.2 10^3/uL (1.5-5.0); LYMPH % 5.2 % (24.0-44.0); MEAN CORPUSCULAR HEMOGLOBIN 31.1 pg (27.0-33.0); MEAN CORPUSCULAR HGB CONC 33.3 g/dl (32.0-36.5); MEAN CORPUSCULAR VOLUME 93.4 fl (80.0-96.0); MONO # 2.5 10^3/uL (0.0-0.8); MONO % 10.5 % (2.0-8.0); NEUTROPHILS # 19.9 10^3/uL (1.5-8.5); NEUTROPHILS % 83.4 % (36.0-66.0); PLATELET COUNT, AUTOMATED 326 10^3/uL (150-450); RED BLOOD COUNT 4.88 10^6/uL (4.30-6.10); WHITE BLOOD COUNT 23.8 10^3/uL (4.0-10.0)
[2024-12-12 16:50] LABS: ALBUMIN 3.7 G/DL (3.2-5.2); ALKALINE PHOSPHATASE 78 U/L (40-129); ALT/SGPT 40 U/L (7.0-40); AST/SGOT 51 U/L (<34); BILIRUBIN,DIRECT 0.2 MG/DL (<0.4); BILIRUBIN,TOTAL 0.5 MG/DL (0.3-1.2); BLOOD UREA NITROGEN 14 MG/DL (9-23); CALCIUM LEVEL 9.6 MG/DL (8.3-10.6); CARBON DIOXIDE LEVEL 30 MMOL/L (20-31); CHLORIDE LEVEL 101 MMOL/L (98-107); CREATININE FOR GFR 0.94 MG/DL (0.70-1.30); GLOMERULAR FILTRATION RATE > 60.0 (>49); GLUCOSE, FASTING 115 MG/DL (74-106); POTASSIUM SERUM 4.7 MMOL/L (3.5-5.1); SODIUM LEVEL 142 MMOL/L (136-145); TOTAL PROTEIN 6.4 G/DL (5.7-8.2)
[2024-12-12] MEDS: LR 1,000 ML IV ONE ×3 (17:48→21:57)
[2024-12-12] MEDS: cefTRIAXone SOD 2 GM in DEXTROSE 5% (D5W) ADV/MINI-BAG 50 ML IV ONE (17:49)
[2024-12-12] MEDS: OSELTAMIVIR PHOSPHATE 75 MG CAP PO ONE (17:49)
[2024-12-12] MEDS ORDERED: PRED10TA2 PO (18:02)
[2024-12-12] MEDS ORDERED: FLUT1BLS6 INH (18:02)
[2024-12-12] MEDS ORDERED: METO25TA4 PO (18:02)
[2024-12-12] MEDS ORDERED: HOME MED LIST COMPLETE! XX SCH (18:05)
[2024-12-12] MEDS: LACTOBACILLUS ACIDOPHILUS CAP (BACID) PO SCH (18:18)
[2024-12-12] MEDS ORDERED: IPRATROPIUM 0.02% SOLN 0.5MG 2.5ML NEB NEB ONE (19:35)
[2024-12-12] MEDS ORDERED: LEVALBUTEROL 1.25MG 0.5ML CONCENTRATE NEB INH ONE (19:35)
[2024-12-12] MEDS ORDERED: MELOXICAM (MOBIC) 7.5 MG TAB PO PRN (19:40)
[2024-12-12 20:45] LABS: CK-MB VALUE MASS 8.1 NG/ML (<3.6)
[2024-12-12] MEDS: IPRATROPIUM 0.02% SOLN 0.5MG 2.5ML NEB INH SCH (20:45)
[2024-12-12] MEDS: LEVALBUTEROL 1.25MG 0.5ML CONCENTRATE NEB INH SCH (20:45)
[2024-12-12] MEDS: FORMOTEROL FUMARATE 20 MCG/2 ML INHALATION SOLUTION (PERFOROMIST) INH SCH (20:45)
[2024-12-12 20:46] LABS: MB/CK RELATIVE INDEX 0.98 (< OR =4)
[2024-12-12] MEDS: methylPREDNISolone 125MG 2ML VIAL IV ONE (20:52)
[2024-12-12] MEDS ORDERED: METOPROLOL TART 25 MG TABLET PO SCH (21:00)
[2024-12-12 21:16] VITALS: BP 130/81; TEMP 97.9; O2SAT 94
[2024-12-12 21:38] VITALS: O2SAT 94
[2024-12-12] MEDS: DOXYCYCLINE HYCLATE 100MG TABLET PO SCH (21:56)
[2024-12-12] MEDS: FAMOTIDINE 20 MG TAB PO SCH (21:57)
[2024-12-12] MEDS: IPRATROPIUM 0.02% SOLN 0.5MG 2.5ML NEB INH PRN (22:07)
[2024-12-12] MEDS: LEVALBUTEROL 1.25MG 0.5ML CONCENTRATE NEB INH PRN (22:07)
[2024-12-12 23:07] LABS: MAGNESIUM LEVEL 1.6 MG/DL (1.8-2.4); POTASSIUM SERUM 4.6 MMOL/L (3.5-5.1)
[2024-12-13] VITALS (17 sets, daily range): BP systolic 90–100; BP diastolic 52–67; TEMP 98.1–99.7; O2SAT 80–94
[2024-12-13] MEDS: NS (Normal Saline) 0.9% 1,000 ML IV SCH (00:06)
[2024-12-13 01:36] LABS: CK-MB VALUE MASS 9.6 NG/ML (<3.6)
[2024-12-13 01:44] LABS: MB/CK RELATIVE INDEX 1.14 (< OR =4)
[2024-12-13] MEDS: methylPREDNISolone 40MG 1ML VIAL IV SCH (02:06)
[2024-12-13 05:55] LABS: BASO % 0.1 % (0.0-1.0); HEMATOCRIT 35.9 % (42.0-52.0); LYMPH # 0.4 10^3/uL (1.5-5.0); LYMPH % 2.4 % (24.0-44.0); MEAN CORPUSCULAR HEMOGLOBIN 31.7 pg (27.0-33.0); MEAN CORPUSCULAR HGB CONC 33.4 g/dl (32.0-36.5); MONO # 0.3 10^3/uL (0.0-0.8); NEUTROPHILS # 15.3 10^3/uL (1.5-8.5); NEUTROPHILS % 94.8 % (36.0-66.0); PLATELET COUNT, AUTOMATED 244 10^3/uL (150-450); RED BLOOD COUNT 3.78 10^6/uL (4.30-6.10); WHITE BLOOD COUNT 16.2 10^3/uL (4.0-10.0)
[2024-12-13 05:59] LABS: BLOOD UREA NITROGEN 14 MG/DL (9-23); CALCIUM LEVEL 8.7 MG/DL (8.3-10.6); CARBON DIOXIDE LEVEL 28 MMOL/L (20-31); CHLORIDE LEVEL 104 MMOL/L (98-107); CREATININE FOR GFR 0.64 MG/DL (0.70-1.30); GLOMERULAR FILTRATION RATE > 60.0 (>49); GLUCOSE, FASTING 152 MG/DL (74-106); POTASSIUM SERUM 4.3 MMOL/L (3.5-5.1); SODIUM LEVEL 141 MMOL/L (136-145)
[2024-12-13] MEDS: MAG SULF 1GM/100ML (MAG RUN) 1 GM in IV 1 EA IV ONE (06:45)
[2024-12-13] MEDS: MIDODRINE 5 MG TAB PO ONE (06:45)
[2024-12-13] MEDS: LR 1,000 ML IV ONE ×2 (06:45→09:57)
[2024-12-13 07:10] LABS: MAGNESIUM LEVEL 1.5 MG/DL (1.8-2.4)
[2024-12-13 07:12] LABS: CPK CREATINE PHOSPHOKINASE 804 U/L (46-171); MB/CK RELATIVE INDEX 1.49 (< OR =4)
[2024-12-13 07:24] LABS: PROCALCITONIN 1.57 ng/ml
[2024-12-13] MEDS: COLCHICINE 0.6 MG TABLET PO SCH (09:15)
[2024-12-13] MEDS: EZETIMIBE 10MG TABLET (ZETIA) PO SCH (09:15)
[2024-12-13] MEDS: OSELTAMIVIR PHOSPHATE 75 MG CAP PO SCH (09:15)
[2024-12-13] MEDS: ATORVASTATIN 20 MG TAB PO SCH (09:15)
[2024-12-13] MEDS: ENOXAPARIN 40MG/0.4ML SYRINGE (J1650 PER 10MG) SC SCH (09:16)
[2024-12-13] MEDS: methylPREDNISolone 125MG 2ML VIAL IV ONE (09:54)
[2024-12-13] MEDS: cefTRIAXone SOD 2 GM in DEXTROSE 5% (D5W) ADV/MINI-BAG 50 ML IV SCH (09:55)
[2024-12-13 10:24] LABS: ABG BASE EXCESS -0.2 (-2.0-2.0); ABG HCO3 24.3 MMOL/L (22.0-26.0); ABG O2 SATURATION 95.1 % (95.0-99.0); ABG PARTIAL PRESSURE CO2 39.3 mmHg (35.0-45.0); ABG STANDARD HCO3 24.3 MMOL/L. (22.0-26.0); ABG TOTAL CO2 25.5 MMOL/L (23.0-31.0); ABG pH (ARTERIAL) 7.409 UNITS (7.350-7.450)
[2024-12-13] MEDS: LEVALBUTEROL 1.25MG 0.5ML CONCENTRATE NEB INH SCH (10:26)
[2024-12-13] MEDS: MIDODRINE 5 MG TAB PO SCH (13:24)
[2024-12-13] MEDS: methylPREDNISolone 125MG 2ML VIAL IV SCH (17:31)
[2024-12-14] VITALS (11 sets, daily range): BP systolic 94–131; BP diastolic 63–80; TEMP 97.9–98.9; O2SAT 91–97
[2024-12-14] MEDS: diphenhydrAMINE 50MG/ML VIAL IV ONE (03:50)
[2024-12-14] MEDS ORDERED: diphenhydrAMINE 50MG/ML VIAL IV ONE (04:00)
[2024-12-14] MEDS ORDERED: ALPRAZolam 0.25 MG TAB PO ONE (04:00)
[2024-12-14 04:58] LABS: EOS % 0.1 % (0.0-3.0); HEMOGLOBIN 11.8 g/dl (13.5-17.5); LYMPH # 0.4 10^3/uL (1.5-5.0); LYMPH % 1.7 % (24.0-44.0); MEAN CORPUSCULAR HEMOGLOBIN 30.9 pg (27.0-33.0); MEAN CORPUSCULAR HGB CONC 32.8 g/dl (32.0-36.5); MEAN CORPUSCULAR VOLUME 94.2 fl (80.0-96.0); MONO # 0.8 10^3/uL (0.0-0.8); MONO % 3.7 % (2.0-8.0); PLATELET COUNT, AUTOMATED 246 10^3/uL (150-450); RED BLOOD COUNT 3.82 10^6/uL (4.30-6.10); WHITE BLOOD COUNT 21.3 10^3/uL (4.0-10.0)
[2024-12-14 05:22] LABS: BLOOD UREA NITROGEN 15 MG/DL (9-23); CALCIUM LEVEL 8.5 MG/DL (8.3-10.6); CARBON DIOXIDE LEVEL 28 MMOL/L (20-31); CHLORIDE LEVEL 104 MMOL/L (98-107); CREATININE FOR GFR 0.67 MG/DL (0.70-1.30); GLOMERULAR FILTRATION RATE > 60.0 (>49); GLUCOSE, FASTING 150 MG/DL (74-106); POTASSIUM SERUM 4.2 MMOL/L (3.5-5.1); SODIUM LEVEL 138 MMOL/L (136-145)
[2024-12-14] MEDS: PANTOPRAZOLE 40MG TAB (PROTONIX) PO SCH (08:06)
[2024-12-15] VITALS (10 sets, daily range): BP systolic 108–120; BP diastolic 66–79; TEMP 97.8–98.4; O2SAT 92–96
[2024-12-15 04:47] LABS: BASO % 0.1 % (0.0-1.0); EOS % 0.1 % (0.0-3.0); HEMATOCRIT 35.7 % (42.0-52.0); HEMOGLOBIN 11.9 g/dl (13.5-17.5); LYMPH # 0.3 10^3/uL (1.5-5.0); LYMPH % 1.8 % (24.0-44.0); MEAN CORPUSCULAR HEMOGLOBIN 31.2 pg (27.0-33.0); MEAN CORPUSCULAR HGB CONC 33.3 g/dl (32.0-36.5); MEAN CORPUSCULAR VOLUME 93.7 fl (80.0-96.0); MONO # 0.6 10^3/uL (0.0-0.8); MONO % 3.1 % (2.0-8.0); NEUTROPHILS # 17.1 10^3/uL (1.5-8.5); NEUTROPHILS % 94.3 % (36.0-66.0); PLATELET COUNT, AUTOMATED 271 10^3/uL (150-450); RED BLOOD COUNT 3.81 10^6/uL (4.30-6.10); WHITE BLOOD COUNT 18.2 10^3/uL (4.0-10.0)
[2024-12-15 05:06] LABS: BLOOD UREA NITROGEN 17 MG/DL (9-23); CARBON DIOXIDE LEVEL 29 MMOL/L (20-31); CHLORIDE LEVEL 102 MMOL/L (98-107); GLOMERULAR FILTRATION RATE > 60.0 (>49); GLUCOSE, FASTING 148 MG/DL (74-106); POTASSIUM SERUM 4.6 MMOL/L (3.5-5.1); SODIUM LEVEL 138 MMOL/L (136-145)
[2024-12-15] MEDS: ACETAMINOPHEN *IV* 1,000 MG in IV 1 EA IV ONE (05:12)
[2024-12-15] MEDS: KETOROLAC 30 MG/ML 1ML VIAL IV ONE (05:12)
[2024-12-15] MEDS: LIDOCAINE 2% JELLY 6ML SYRINGE TOP STA (07:05)
[2024-12-16] VITALS: BP 115/61; TEMP 98.2; O2SAT 99
[2024-12-16 04:00] VITALS: BP 112/64; TEMP 98.3; O2SAT 95
[2024-12-16 05:15] LABS: BASO % 0.1 % (0.0-1.0); EOS # 0.1 10^3/uL (0.0-0.5); EOS % 0.5 % (0.0-3.0); HEMATOCRIT 36.4 % (42.0-52.0); HEMOGLOBIN 12.1 g/dl (13.5-17.5); LYMPH # 0.5 10^3/uL (1.5-5.0); LYMPH % 3.8 % (24.0-44.0); MEAN CORPUSCULAR HGB CONC 33.2 g/dl (32.0-36.5); MEAN CORPUSCULAR VOLUME 93.3 fl (80.0-96.0); MONO # 0.6 10^3/uL (0.0-0.8); MONO % 4.4 % (2.0-8.0); NEUTROPHILS # 12.3 10^3/uL (1.5-8.5); NEUTROPHILS % 90.6 % (36.0-66.0); PLATELET COUNT, AUTOMATED 280 10^3/uL (150-450); WHITE BLOOD COUNT 13.6 10^3/uL (4.0-10.0)
[2024-12-16 05:26] LABS: BLOOD UREA NITROGEN 20 MG/DL (9-23); CALCIUM LEVEL 9.1 MG/DL (8.3-10.6); CARBON DIOXIDE LEVEL 33 MMOL/L (20-31); CHLORIDE LEVEL 101 MMOL/L (98-107); CREATININE FOR GFR 0.66 MG/DL (0.70-1.30); GLOMERULAR FILTRATION RATE > 60.0 (>49); GLUCOSE, FASTING 118 MG/DL (74-106); POTASSIUM SERUM 4.4 MMOL/L (3.5-5.1); SODIUM LEVEL 138 MMOL/L (136-145)
[2024-12-16 08:00] VITALS: BP 143/80; TEMP 98.2; O2SAT 94
[2024-12-16 12:00] VITALS: BP 133/72; TEMP 98.4; O2SAT 94
[2024-12-16 15:44] VITALS: BP 127/79; TEMP 97.9; O2SAT 90
[2024-12-16 19:28] VITALS: BP 132/79; TEMP 98.1; O2SAT 90
[2024-12-17 04:19] VITALS: BP 122/75; TEMP 97.7; O2SAT 92
[2024-12-17 05:56] LABS: BASO % 0.1 % (0.0-1.0); HEMATOCRIT 36.8 % (42.0-52.0); HEMOGLOBIN 12.4 g/dl (13.5-17.5); LYMPH # 0.5 10^3/uL (1.5-5.0); LYMPH % 4.8 % (24.0-44.0); MEAN CORPUSCULAR HEMOGLOBIN 31.1 pg (27.0-33.0); MEAN CORPUSCULAR HGB CONC 33.7 g/dl (32.0-36.5); MEAN CORPUSCULAR VOLUME 92.2 fl (80.0-96.0); MONO # 0.7 10^3/uL (0.0-0.8); MONO % 6.4 % (2.0-8.0); NEUTROPHILS % 88.1 % (36.0-66.0); PLATELET COUNT, AUTOMATED 279 10^3/uL (150-450); RED BLOOD COUNT 3.99 10^6/uL (4.30-6.10); WHITE BLOOD COUNT 11.3 10^3/uL (4.0-10.0)
[2024-12-17 06:29] LABS: BLOOD UREA NITROGEN 19 MG/DL (9-23); CARBON DIOXIDE LEVEL 35 MMOL/L (20-31); CHLORIDE LEVEL 97 MMOL/L (98-107); GLOMERULAR FILTRATION RATE > 60.0 (>49); GLUCOSE, FASTING 136 MG/DL (74-106); POTASSIUM SERUM 4.2 MMOL/L (3.5-5.1); SODIUM LEVEL 137 MMOL/L (136-145)
[2024-12-17] MEDS: CEFDINIR 300 MG CAP (OMNICEF) PO SCH (08:42)
[2024-12-17 12:00] VITALS: BP 144/79; TEMP 97.7; O2SAT 94
[2024-12-17 20:46] VITALS: BP 127/91; TEMP 97.9; O2SAT 91
[2024-12-18 03:37] VITALS: BP 120/76; TEMP 97.5; O2SAT 91
[2024-12-18 06:10] LABS: BASO % 0.1 % (0.0-1.0); HEMATOCRIT 38.7 % (42.0-52.0); HEMOGLOBIN 13.1 g/dl (13.5-17.5); LYMPH # 0.6 10^3/uL (1.5-5.0); LYMPH % 4.7 % (24.0-44.0); MEAN CORPUSCULAR HEMOGLOBIN 31.2 pg (27.0-33.0); MEAN CORPUSCULAR HGB CONC 33.9 g/dl (32.0-36.5); MEAN CORPUSCULAR VOLUME 92.1 fl (80.0-96.0); MONO # 0.8 10^3/uL (0.0-0.8); MONO % 7.1 % (2.0-8.0); NEUTROPHILS # 10.3 10^3/uL (1.5-8.5); NEUTROPHILS % 87.1 % (36.0-66.0); PLATELET COUNT, AUTOMATED 328 10^3/uL (150-450); WHITE BLOOD COUNT 11.8 10^3/uL (4.0-10.0)
[2024-12-18 06:27] LABS: BLOOD UREA NITROGEN 18 MG/DL (9-23); CALCIUM LEVEL 9.2 MG/DL (8.3-10.6); CARBON DIOXIDE LEVEL 38 MMOL/L (20-31); CHLORIDE LEVEL 96 MMOL/L (98-107); CREATININE FOR GFR 0.68 MG/DL (0.70-1.30); GLOMERULAR FILTRATION RATE > 60.0 (>49); GLUCOSE, FASTING 144 MG/DL (74-106); POTASSIUM SERUM 4.4 MMOL/L (3.5-5.1); SODIUM LEVEL 137 MMOL/L (136-145)
[2024-12-18] MEDS ORDERED: PANT40TA29 PO (11:06)
[2024-12-18] MEDS ORDERED: CEFD300CAP PO (11:06)
[2024-12-18] MEDS ORDERED: LEVA15HF2 INH (11:13)
[2024-12-18] MEDS ORDERED: PRED10TA2 PO (11:14)
[2024-12-18] MEDS ORDERED: IPRAINH INH (11:16)
[2024-12-18 12:00] VITALS: BP 143/80; TEMP 98.2; O2SAT 87
== END 2024-12-18 15:26 | disposition home health service (06) | DRG 871 ==
LOC: M ED 15:34 → EDBD 15:34 → M ED INP 17:32 → M MSPAV 21:20 → M ICU 12-13 10:02 → M MSPAV 12-16 15:44
PROVIDERS: ADMIT General Practice; ATTEND Student in an Organized Health Care Education/Training Program
DX: A41.9 Sepsis, unspecified organism (principal); J15.9 Unspecified bacterial pneumonia; J10.08 Influenza due to other identified influenza virus with other specified pneumonia; J96.21 Acute and chronic respiratory failure with hypoxia; J44.1 Chronic obstructive pulmonary disease with (acute) exacerbation; F31.9 Bipolar disorder, unspecified; F90.9 Attention-deficit hyperactivity disorder, unspecified type; R94.5 Abnormal results of liver function studies; Z99.81 Dependence on supplemental oxygen; R33.9 Retention of urine, unspecified; Z79.899 Other long term (current) drug therapy; M19.90 Unspecified osteoarthritis, unspecified site; E03.9 Hypothyroidism, unspecified

== ENCOUNTER 2024-12-27 10:28 | Emergency (ER) | payer MEDICARE, MEDICAID ==
[~2024-12-27] VITALS: Ht 167.6 cm; Wt 57.7 kg
[~2024-12-27 10:28] MED LIST changes: +FLUT1BLS6 INH; +IPRAINH INH; +LEVA15HF2 INH; +METO25TA4 PO; +PANT40TA29 PO
[2024-12-27 10:43] VITALS: BP 108/72; TEMP 99; O2SAT 95
== END 2024-12-27 13:54 | disposition home or self-care (01) ==
LOC: EDBD 10:28 → M ED 10:28
DX: T83.091A Other mechanical complication of indwelling urethral catheter, initial encounter (principal); J44.9 Chronic obstructive pulmonary disease, unspecified; E03.9 Hypothyroidism, unspecified; F12.10 Cannabis abuse, uncomplicated; Z79.52 Long term (current) use of systemic steroids; Z79.2 Long term (current) use of antibiotics; Z79.02 Long term (current) use of antithrombotics/antiplatelets; Z79.899 Other long term (current) drug therapy

== ENCOUNTER 2025-01-05 11:15 | Inpatient (IN) | payer MEDICARE, MEDICAID ==
[~2025-01-05] VITALS: Ht 172.7 cm; Wt 54.9 kg
[2025-01-05 11:37] LABS: VENOUS BASE EXCESS 4.2 (-2.0-2.0); VENOUS HCO3 28.5 MMOL/L (23.0-27.0); VENOUS O2 SATURATION 68.9 % (60.0-80.0); VENOUS PARTIAL PRESSURE CO2 41.3 mmHg (38.0-50.0); VENOUS PARTIAL PRESSURE O2 34.5 mmHg (30.0-50.0); VENOUS PH 7.456 UNITS (7.330-7.430); VENOUS STANDARD HCO3 27.5 MMOL/L; VENOUS TOTAL CO2 29.7 MMOL/L (24.0-28.0)
[2025-01-05 11:48] LABS: BASO % 0.2 % (0.0-1.0); HEMATOCRIT 38.9 % (42.0-52.0); HEMOGLOBIN 13.5 g/dl (13.5-17.5); LYMPH # 0.6 10^3/uL (1.5-5.0); LYMPH % 3.2 % (24.0-44.0); MEAN CORPUSCULAR HEMOGLOBIN 31.2 pg (27.0-33.0); MEAN CORPUSCULAR HGB CONC 34.7 g/dl (32.0-36.5); MEAN CORPUSCULAR VOLUME 89.8 fl (80.0-96.0); MONO # 1.4 10^3/uL (0.0-0.8); MONO % 7.2 % (2.0-8.0); NEUTROPHILS # 17.3 10^3/uL (1.5-8.5); NEUTROPHILS % 88.9 % (36.0-66.0); PLATELET COUNT, AUTOMATED 306 10^3/uL (150-450); RED BLOOD COUNT 4.33 10^6/uL (4.30-6.10); WHITE BLOOD COUNT 19.4 10^3/uL (4.0-10.0)
[2025-01-05] MEDS: IPRATROPIUM 0.5MG/ALBUTEROL 2.5MG INH SOL UD 3ML (DUONEB) NEB ONE (11:56)
[2025-01-05] MEDS: ALBUTEROL SULFATE 2.5MG/0.5ML INH NEB SOLN INH ONE (11:56)
[2025-01-05] MEDS: NS (Normal Saline) 0.9% 1,000 ML IV ONE ×2 (12:15→15:28)
[2025-01-05] MEDS: PIPERACILLIN/TAZOBACTAM SOD 4.5 GM in DEXTROSE 5% (D5W) ADV/MINI-BAG 50 ML IV ONE (12:21)
[2025-01-05 12:26] LABS: INR 1.33; PARTIAL THROMBOPLASTIN TIME 27.4 SECONDS (24.8-34.2); PROTHROMBIN TIME 16.7 SECONDS (12.5-14.5)
[2025-01-05 12:48] LABS: ALT/SGPT 37 U/L (7.0-40); AST/SGOT 49 U/L (<34); BLOOD UREA NITROGEN 25 MG/DL (9-23); CALCIUM LEVEL 8.3 MG/DL (8.3-10.6); CARBON DIOXIDE LEVEL 26 MMOL/L (20-31); CPK CREATINE PHOSPHOKINASE 43 U/L (46-171); CREATININE FOR GFR 0.69 MG/DL (0.70-1.30); GLOMERULAR FILTRATION RATE > 60.0 (>49); GLUCOSE, FASTING 90 MG/DL (74-106); LIPASE 23 U/L (12-53)
[2025-01-05 12:49] LABS: ALKALINE PHOSPHATASE 122 U/L (40-129); BILIRUBIN,DIRECT 0.2 MG/DL (<0.4); BILIRUBIN,TOTAL 0.6 MG/DL (0.3-1.2); CK-MB VALUE MASS < 1.0 NG/ML (<3.6); MB/CK RELATIVE INDEX 2.32 (< OR =4); THYROID STIMULATING HORMONE 2.263 uIU/ML (0.55-4.78); TOTAL PROTEIN 5.9 G/DL (5.7-8.2)
[2025-01-05] MEDS: VANCOMYCIN HCL 1,250 MG, VIAL MATE ADAPTER 1 EACH in NS 250 ML IV ONE (13:56)
[2025-01-05 14:21] LABS: PROCALCITONIN 0.78 ng/ml
[2025-01-05 14:22] LABS: CARBON DIOXIDE LEVEL 17 MMOL/L (20-31); CHLORIDE LEVEL 110 MMOL/L (98-107); CK-MB VALUE MASS < 1.0 NG/ML (<3.6); CPK CREATINE PHOSPHOKINASE 35 U/L (46-171); MB/CK RELATIVE INDEX 2.85 (< OR =4); POTASSIUM SERUM 4.7 MMOL/L (3.5-5.1); SODIUM LEVEL 138 MMOL/L (136-145)
[2025-01-05] MEDS ORDERED: ACETAMINOPHEN 325 MG TAB PO PRN (14:25)
[2025-01-05] MEDS ORDERED: IPRATROPIUM 0.5MG/ALBUTEROL 2.5MG INH SOL UD 3ML (DUONEB) NEB PRN (14:25)
[2025-01-05] MEDS ORDERED: ISOVUE-370 76% 100ML VIAL As Ordered ONE (14:27)
[2025-01-05] MEDS: NS (Normal Saline) 0.9% 1,000 ML IV SCH (14:30)
[2025-01-05] MEDS ORDERED: PIPERACILLIN/TAZOBACTAM SOD 3.375 GM in DEXTROSE 5% (D5W) ADV/MINI-BAG 50 ML IV SCH (14:30)
[2025-01-05] MEDS ORDERED: AZITHROMYCIN INJ 500 MG, VIAL MATE ADAPTER 1 EACH in NS 250 ML IV SCH (14:30)
[2025-01-05] MEDS ORDERED: VANCOMYCIN HCL 1,000 MG, VIAL MATE ADAPTER 1 EACH in NS 250 ML IV SCH (14:30)
[2025-01-05 15:18] LABS: ALBUMIN 1.1 G/DL (3.2-5.2); ALKALINE PHOSPHATASE 67 U/L (40-129); ALT/SGPT 22 U/L (7.0-40); AST/SGOT 40 U/L (<34); BILIRUBIN,TOTAL 0.3 MG/DL (0.3-1.2); BLOOD UREA NITROGEN 18 MG/DL (9-23); CALCIUM LEVEL 4.7 MG/DL (8.3-10.6); CREATININE FOR GFR 0.43 MG/DL (0.70-1.30); GLOMERULAR FILTRATION RATE > 60.0 (>49); GLUCOSE, FASTING 143 MG/DL (74-106); TOTAL PROTEIN 3.7 G/DL (5.7-8.2)
[2025-01-05 15:31] LABS: KETONE, URINE AUTO RFX 1+ mg/dL (NEGATIVE); LEUKOCYTE ESTERASE UR AUTO RFX NEGATIVE (NEGATIVE); MUCUS, URINE RFX SMALL (NEGATIVE); NITRITE, URINE AUTO RFX NEGATIVE (NEGATIVE); RBC, URINE AUTO RFX 58 /HPF (0-3); SQUAM EPITHELIAL CELL UR AURFX 0 /HPF (0-6); WBC, URINE AUTO RFX 23 /HPF (0-3)
[2025-01-05 15:48] LABS: ALBUMIN 1.5 G/DL (3.2-5.2); ALKALINE PHOSPHATASE 94 U/L (40-129); ALT/SGPT 27 U/L (7.0-40); AST/SGOT 28 U/L (<34); BILIRUBIN,TOTAL 0.5 MG/DL (0.3-1.2); BLOOD UREA NITROGEN 22 MG/DL (9-23); CALCIUM LEVEL 7.2 MG/DL (8.3-10.6); CARBON DIOXIDE LEVEL 24 MMOL/L (20-31); CHLORIDE LEVEL 100 MMOL/L (98-107); CREATININE FOR GFR 0.62 MG/DL (0.70-1.30); GLOMERULAR FILTRATION RATE > 60.0 (>49); GLUCOSE, FASTING 101 MG/DL (74-106); POTASSIUM SERUM 4.6 MMOL/L (3.5-5.1); SODIUM LEVEL 132 MMOL/L (136-145); TOTAL PROTEIN 4.6 G/DL (5.7-8.2)
[2025-01-05] MEDS: AZITHROMYCIN 250MG TABLET PO SCH (16:09)
[2025-01-05] MEDS: ENOXAPARIN 60MG/0.6ML SYRINGE (J1650 PER 10MG) SC SCH (16:09)
[2025-01-05] MEDS ORDERED: PANT-23 PO (18:24)
[2025-01-05] MEDS ORDERED: THERTAB52 PO (18:24)
[2025-01-05] MEDS ORDERED: LEVA45AE INH (18:24)
[2025-01-05] MEDS ORDERED: HOME MED LIST COMPLETE! XX SCH (18:30)
[2025-01-05] MEDS: LACTOBACILLUS ACIDOPHILUS CAP (BACID) PO SCH (18:31)
[2025-01-05] MEDS: PIPERACILLIN/TAZOBACTAM SOD 4.5 GM in DEXTROSE 5% (D5W) ADV/MINI-BAG 50 ML IV SCH (18:31)
[2025-01-05] MEDS: IPRATROPIUM 0.5MG/ALBUTEROL 2.5MG INH SOL UD 3ML (DUONEB) NEB SCH (20:33)
[2025-01-05] MEDS: ADVAIR HFA 230/21MCG INHALER INH SCH (20:34)
[2025-01-05] MEDS: guaiFENesin ER TABLET 600 MG TAB PO SCH (21:06)
[2025-01-05] MEDS: METOPROLOL TART 25 MG TABLET PO SCH (21:07)
[2025-01-05] MEDS: VANCOMYCIN HCL 1,000 MG, VIAL MATE ADAPTER 1 EACH in NS 250 ML IV SCH (22:27)
[2025-01-06] VITALS (11 sets, daily range): BP systolic 74–101; BP diastolic 40–59; TEMP 97.1–99.2; O2SAT 94–97
[2025-01-06 07:29] LABS: BASO % 0.1 % (0.0-1.0); HEMATOCRIT 27.7 % (42.0-52.0); LYMPH # 0.3 10^3/uL (1.5-5.0); LYMPH % 2.2 % (24.0-44.0); MEAN CORPUSCULAR HEMOGLOBIN 30.8 pg (27.0-33.0); MEAN CORPUSCULAR HGB CONC 33.6 g/dl (32.0-36.5); MEAN CORPUSCULAR VOLUME 91.7 fl (80.0-96.0); MONO # 0.9 10^3/uL (0.0-0.8); MONO % 5.8 % (2.0-8.0); NEUTROPHILS # 13.9 10^3/uL (1.5-8.5); NEUTROPHILS % 91.2 % (36.0-66.0); PLATELET COUNT, AUTOMATED 274 10^3/uL (150-450); RED BLOOD COUNT 3.02 10^6/uL (4.30-6.10); WHITE BLOOD COUNT 15.2 10^3/uL (4.0-10.0)
[2025-01-06 07:30] LABS: HEMOGLOBIN 9.3 g/dl (13.5-17.5)
[2025-01-06 07:51] LABS: VANCOMYCIN RANDOM 10.3 UG/ML
[2025-01-06 07:52] LABS: ALBUMIN 1.5 G/DL (3.2-5.2); ALKALINE PHOSPHATASE 99 U/L (40-129); ALT/SGPT 41 U/L (7.0-40); AST/SGOT 39 U/L (<34); BILIRUBIN,TOTAL 0.3 MG/DL (0.3-1.2); BLOOD UREA NITROGEN 16 MG/DL (9-23); CALCIUM LEVEL 7.8 MG/DL (8.3-10.6); CARBON DIOXIDE LEVEL 27 MMOL/L (20-31); CHLORIDE LEVEL 104 MMOL/L (98-107); CREATININE FOR GFR 0.54 MG/DL (0.70-1.30); GLOMERULAR FILTRATION RATE > 60.0 (>49); GLUCOSE, FASTING 152 MG/DL (74-106); POTASSIUM SERUM 4.2 MMOL/L (3.5-5.1); SODIUM LEVEL 134 MMOL/L (136-145); TOTAL PROTEIN 4.6 G/DL (5.7-8.2)
[2025-01-06] MEDS: TIOTROPIUM BROM 2.5MCG/ACTUATION 4GM INH IH SCH (08:45)
[2025-01-06] MEDS ORDERED: ENOXAPARIN 40MG/0.4ML SYRINGE (J1650 PER 10MG) SC SCH (09:00)
[2025-01-06] MEDS: VANCOMYCIN HCL 1,250 MG, VIAL MATE ADAPTER 1 EACH in NS 250 ML IV SCH (09:09)
[2025-01-06] MEDS: ATORVASTATIN 20 MG TAB PO SCH (09:10)
[2025-01-06] MEDS: MULTIVITAMINS/MINERALS THERAP 1 TAB PO SCH (09:10)
[2025-01-06] MEDS: EZETIMIBE 10MG TABLET (ZETIA) PO SCH (09:10)
[2025-01-06] MEDS: PANTOPRAZOLE 40MG TAB (PROTONIX) PO SCH (09:11)
[2025-01-06] MEDS: COLCHICINE 0.6 MG TABLET PO SCH (09:11)
[2025-01-06] MEDS: predniSONE 10MG TAB PO SCH (09:11)
[2025-01-06] MEDS: NS (Normal Saline) 0.9% 1,000 ML IV ONE ×2 (17:02→22:26)
[2025-01-06] MEDS: HYDROCORTISONE 100MG/2ML VIAL IV ONE (17:02)
[2025-01-07] VITALS (18 sets, daily range): BP systolic 100–118; BP diastolic 54–69; TEMP 97.4–98.7; O2SAT 93–99
[2025-01-07 04:03] LABS: BASO % 0.1 % (0.0-1.0); EOS % 0.1 % (0.0-3.0); HEMATOCRIT 27.3 % (42.0-52.0); HEMOGLOBIN 9.1 g/dl (13.5-17.5); LYMPH # 0.4 10^3/uL (1.5-5.0); LYMPH % 2.7 % (24.0-44.0); MEAN CORPUSCULAR HEMOGLOBIN 30.5 pg (27.0-33.0); MEAN CORPUSCULAR HGB CONC 33.3 g/dl (32.0-36.5); MEAN CORPUSCULAR VOLUME 91.6 fl (80.0-96.0); MONO # 0.9 10^3/uL (0.0-0.8); NEUTROPHILS # 13.2 10^3/uL (1.5-8.5); NEUTROPHILS % 90.5 % (36.0-66.0); PLATELET COUNT, AUTOMATED 324 10^3/uL (150-450); RED BLOOD COUNT 2.98 10^6/uL (4.30-6.10); WHITE BLOOD COUNT 14.6 10^3/uL (4.0-10.0)
[2025-01-07 04:25] LABS: ALBUMIN 1.5 G/DL (3.2-5.2); ALKALINE PHOSPHATASE 111 U/L (40-129); ALT/SGPT 90 U/L (7.0-40); AST/SGOT 78 U/L (<34); BILIRUBIN,TOTAL 0.2 MG/DL (0.3-1.2); BLOOD UREA NITROGEN 14 MG/DL (9-23); C REACTIVE PROTEIN QUANTITATIV 8.96 MG/DL (<1.0); CALCIUM LEVEL 7.4 MG/DL (8.3-10.6); CARBON DIOXIDE LEVEL 25 MMOL/L (20-31); CHLORIDE LEVEL 105 MMOL/L (98-107); GLOMERULAR FILTRATION RATE > 60.0 (>49); GLUCOSE, FASTING 120 MG/DL (74-106); MAGNESIUM LEVEL 1.9 MG/DL (1.8-2.4); POTASSIUM SERUM 3.5 MMOL/L (3.5-5.1); SODIUM LEVEL 137 MMOL/L (136-145); TOTAL PROTEIN 4.6 G/DL (5.7-8.2)
[2025-01-07] MEDS: HYDROCORTISONE 100MG/2ML VIAL IV SCH ×2 (10:47→18:49)
[2025-01-07] MEDS: RAMELTEON 8 MG TAB (ROZEREM) PO ONE (22:28)
[2025-01-08] VITALS (11 sets, daily range): BP systolic 100–118; BP diastolic 54–70; TEMP 97.3–97.9; O2SAT 94–99
[2025-01-08 05:41] LABS: BASO % 0.2 % (0.0-1.0); HEMATOCRIT 28.2 % (42.0-52.0); HEMOGLOBIN 9.4 g/dl (13.5-17.5); LYMPH # 0.6 10^3/uL (1.5-5.0); MEAN CORPUSCULAR HEMOGLOBIN 31.1 pg (27.0-33.0); MEAN CORPUSCULAR HGB CONC 33.3 g/dl (32.0-36.5); MEAN CORPUSCULAR VOLUME 93.4 fl (80.0-96.0); MONO # 0.7 10^3/uL (0.0-0.8); NEUTROPHILS # 10.6 10^3/uL (1.5-8.5); NEUTROPHILS % 87.9 % (36.0-66.0); PLATELET COUNT, AUTOMATED 379 10^3/uL (150-450); RED BLOOD COUNT 3.02 10^6/uL (4.30-6.10); WHITE BLOOD COUNT 12.1 10^3/uL (4.0-10.0)
[2025-01-08 06:04] LABS: ALBUMIN 1.5 G/DL (3.2-5.2); ALKALINE PHOSPHATASE 97 U/L (40-129); ALT/SGPT 72 U/L (7.0-40); AST/SGOT 28 U/L (<34); BILIRUBIN,TOTAL 0.2 MG/DL (0.3-1.2); BLOOD UREA NITROGEN 9 MG/DL (9-23); C REACTIVE PROTEIN QUANTITATIV 4.59 MG/DL (<1.0); CARBON DIOXIDE LEVEL 29 MMOL/L (20-31); CHLORIDE LEVEL 104 MMOL/L (98-107); CREATININE FOR GFR 0.54 MG/DL (0.70-1.30); GLOMERULAR FILTRATION RATE > 60.0 (>49); GLUCOSE, FASTING 174 MG/DL (74-106); MAGNESIUM LEVEL 1.6 MG/DL (1.8-2.4); POTASSIUM SERUM 3.4 MMOL/L (3.5-5.1); SODIUM LEVEL 139 MMOL/L (136-145); TOTAL PROTEIN 4.4 G/DL (5.7-8.2)
[2025-01-08] MEDS: MAG SULF 1GM/100ML (MAG RUN) 1 GM in IV 1 EA IV SCH (08:13)
[2025-01-08] MEDS: POTASSIUM CHLORIDE 10MEQ SR TABLET PO ONE (08:14)
[2025-01-08] MEDS: LevoFLOXacin 750 MG TABLET PO SCH (10:04)
[2025-01-08] MEDS ORDERED: predniSONE 20 MG TAB PO ONE (10:30)
[2025-01-08] MEDS ORDERED: IPRA0.00 INH (10:35)
[2025-01-08] MEDS ORDERED: PRED10TA2 PO (10:35)
[2025-01-08] MEDS ORDERED: ALBU8.5H INH (10:35)
[2025-01-08] MEDS ORDERED: LEVO75TAB PO (10:35)
[2025-01-08] MEDS ORDERED: PRED20TA PO (10:35)
[2025-01-08] MEDS ORDERED: RISATAB3 PO (10:35)
[2025-01-08] MEDS ORDERED: ALBU2.5V10 INH (10:35)
[2025-01-08] MEDS ORDERED: ELIQ5TAB PO (10:35)
[2025-01-08] MEDS: APIXABAN 5 MG TAB (ELIQUIS) PO ONE (14:31)
== END 2025-01-08 15:24 | disposition home health service (06) | DRG 871 ==
LOC: EDBD 11:15 → M ED 11:15 → M ED INP 15:59 → M PCU 01-06 16:03
PROVIDERS: ADMIT Internal Medicine; ATTEND Internal Medicine
DX: A41.9 Sepsis, unspecified organism (principal); J15.1 Pneumonia due to Pseudomonas; I26.99 Other pulmonary embolism without acute cor pulmonale; E43 Unspecified severe protein-calorie malnutrition; E27.40 Unspecified adrenocortical insufficiency; J96.11 Chronic respiratory failure with hypoxia; Z68.1 Body mass index [BMI] 19.9 or less, adult; E87.1 Hypo-osmolality and hyponatremia; E87.20 Acidosis, unspecified; K57.92 Diverticulitis of intestine, part unspecified, without perforation or abscess without bleeding; J44.9 Chronic obstructive pulmonary disease, unspecified; I10 Essential (primary) hypertension; K21.9 Gastro-esophageal reflux disease without esophagitis; N40.0 Benign prostatic hyperplasia without lower urinary tract symptoms; M19.90 Unspecified osteoarthritis, unspecified site; M10.9 Gout, unspecified; Z79.52 Long term (current) use of systemic steroids; N20.0 Calculus of kidney; F31.9 Bipolar disorder, unspecified; F90.9 Attention-deficit hyperactivity disorder, unspecified type; K52.9 Noninfective gastroenteritis and colitis, unspecified; Z79.899 Other long term (current) drug therapy

== ENCOUNTER 2025-01-10 09:08 | Emergency (ER) | payer MEDICARE, MEDICAID ==
[~2025-01-10] VITALS: Ht 167.6 cm; Wt 57.7 kg
[~2025-01-10 09:08] MED LIST changes: +ELIQ5TAB PO; +LEVA45AE INH; +LEVO75TAB PO; +PANT-23 PO; +RISATAB3 PO; +THERTAB52 PO
[2025-01-10] MEDS ORDERED: METO1TAB87 PO (09:36)
[2025-01-10 10:32] LABS: BASO % 0.2 % (0.0-1.0); HEMATOCRIT 33.9 % (42.0-52.0); HEMOGLOBIN 11.5 g/dl (13.5-17.5); LYMPH # 0.8 10^3/uL (1.5-5.0); LYMPH % 4.4 % (24.0-44.0); MEAN CORPUSCULAR HGB CONC 33.9 g/dl (32.0-36.5); MEAN CORPUSCULAR VOLUME 91.4 fl (80.0-96.0); MONO # 1.1 10^3/uL (0.0-0.8); MONO % 5.6 % (2.0-8.0); NEUTROPHILS # 16.6 10^3/uL (1.5-8.5); NEUTROPHILS % 88.6 % (36.0-66.0); PLATELET COUNT, AUTOMATED 571 10^3/uL (150-450); RED BLOOD COUNT 3.71 10^6/uL (4.30-6.10); WHITE BLOOD COUNT 18.7 10^3/uL (4.0-10.0)
[2025-01-10 11:00] LABS: KETONE, URINE AUTO RFX NEGATIVE (NEGATIVE); MUCUS, URINE RFX LARGE (NEGATIVE); NITRITE, URINE AUTO RFX NEGATIVE (NEGATIVE); RBC, URINE AUTO RFX TNTC /HPF (0-3); SQUAM EPITHELIAL CELL UR AURFX 0 /HPF (0-6); WBC, URINE AUTO RFX 8 /HPF (0-3)
[2025-01-10 11:01] LABS: LEUKOCYTE ESTERASE UR AUTO RFX TRACE (NEGATIVE)
[2025-01-10 11:04] LABS: ALBUMIN 1.8 G/DL (3.2-5.2); ALKALINE PHOSPHATASE 100 U/L (40-129); ALT/SGPT 67 U/L (7.0-40); AST/SGOT 24 U/L (<34); BILIRUBIN,TOTAL 0.2 MG/DL (0.3-1.2); BLOOD UREA NITROGEN 15 MG/DL (9-23); CALCIUM LEVEL 8.3 MG/DL (8.3-10.6); CARBON DIOXIDE LEVEL 35 MMOL/L (20-31); CHLORIDE LEVEL 100 MMOL/L (98-107); CREATININE FOR GFR 0.51 MG/DL (0.70-1.30); GLOMERULAR FILTRATION RATE > 60.0 (>49); GLUCOSE, FASTING 141 MG/DL (74-106); POTASSIUM SERUM 3.6 MMOL/L (3.5-5.1); SODIUM LEVEL 139 MMOL/L (136-145); TOTAL PROTEIN 4.7 G/DL (5.7-8.2)
[2025-01-10] MEDS ORDERED: ISOVUE-370 76% 100ML VIAL As Ordered ONE (12:28)
[2025-01-10] MEDS ORDERED: IPRATROPIUM 0.5MG/ALBUTEROL 2.5MG INH SOL UD 3ML NEB PRN (16:30)
[2025-01-10] MEDS: NS (Normal Saline) 0.9% 1,000 ML IV ONE ×2 (16:46→21:30)
[2025-01-10] MEDS ORDERED: ELIQ5TAB PO (17:26)
[2025-01-10] MEDS ORDERED: HOME MED LIST COMPLETE! XX SCH (17:30)
[2025-01-10 18:15] LABS: FREE T4 0.89 NG/DL (0.89-1.76); THYROID STIMULATING HORMONE 2.603 uIU/ML (0.55-4.78); VITAMIN B12 LEVEL 649 PG/ML (211-911)
[2025-01-10 18:19] LABS: C REACTIVE PROTEIN QUANTITATIV 3.41 MG/DL (<1.0)
[2025-01-10] MEDS: ADVAIR HFA 230/21MCG INHALER INH SCH (20:01)
[2025-01-10] MEDS: IPRATROPIUM 0.5MG/ALBUTEROL 2.5MG INH SOL UD 3ML NEB SCH (20:01)
[2025-01-10] MEDS: APIXABAN 5 MG TAB (ELIQUIS) PO SCH (20:49)
[2025-01-10] MEDS: METOPROLOL TART 25 MG TABLET PO SCH (20:52)
[2025-01-10] MEDS: predniSONE 20 MG TAB PO ONE (20:53)
[2025-01-11] MEDS: TIOTROPIUM BROM 2.5MCG/ACTUATION 4GM INH IH SCH (08:09)
[2025-01-11 08:21] LABS: HEMATOCRIT 31.7 % (42.0-52.0); HEMOGLOBIN 10.7 g/dl (13.5-17.5); MEAN CORPUSCULAR HEMOGLOBIN 31.2 pg (27.0-33.0); MEAN CORPUSCULAR HGB CONC 33.8 g/dl (32.0-36.5); MEAN CORPUSCULAR VOLUME 92.4 fl (80.0-96.0); PLATELET COUNT, AUTOMATED 559 10^3/uL (150-450); RED BLOOD COUNT 3.43 10^6/uL (4.30-6.10); WHITE BLOOD COUNT 16.5 10^3/uL (4.0-10.0)
[2025-01-11] MEDS ORDERED: PILL CUTTER 1 EACH XX PRN (09:10)
[2025-01-11] MEDS: MULTIVITAMINS/MINERALS THERAP 1 TAB PO SCH (10:18)
[2025-01-11] MEDS: COLCHICINE 0.6 MG TABLET PO SCH (10:18)
[2025-01-11] MEDS: ATORVASTATIN 20 MG TAB PO SCH (10:19)
[2025-01-11] MEDS: EZETIMIBE 10MG TABLET (ZETIA) PO SCH (10:20)
[2025-01-11] MEDS: predniSONE 10MG TAB PO SCH (10:20)
[2025-01-11] MEDS: LACTOBACILLUS ACIDOPHILUS CAP (BACID) PO SCH (10:21)
[2025-01-11] MEDS: PANTOPRAZOLE 40MG TAB (PROTONIX) PO SCH (10:21)
[2025-01-11] MEDS: FUROSEMIDE 20 MG TAB PO SCH (10:22)
[2025-01-11] MEDS: LevoFLOXacin 750 MG TABLET PO SCH (20:07)
[2025-01-12 09:36] LABS: HEMATOCRIT 34.8 % (42.0-52.0); HEMOGLOBIN 11.9 g/dl (13.5-17.5); MEAN CORPUSCULAR HEMOGLOBIN 31.2 pg (27.0-33.0); MEAN CORPUSCULAR HGB CONC 34.2 g/dl (32.0-36.5); MEAN CORPUSCULAR VOLUME 91.1 fl (80.0-96.0); PLATELET COUNT, AUTOMATED 602 10^3/uL (150-450); RED BLOOD COUNT 3.82 10^6/uL (4.30-6.10)
[2025-01-12 09:58] LABS: BLOOD UREA NITROGEN 10 MG/DL (9-23); CALCIUM LEVEL 8.6 MG/DL (8.3-10.6); CARBON DIOXIDE LEVEL 34 MMOL/L (20-31); CHLORIDE LEVEL 98 MMOL/L (98-107); CREATININE FOR GFR 0.58 MG/DL (0.70-1.30); GLOMERULAR FILTRATION RATE > 60.0 (>49); GLUCOSE, FASTING 112 MG/DL (74-106); POTASSIUM SERUM 4.1 MMOL/L (3.5-5.1); SODIUM LEVEL 136 MMOL/L (136-145)
[2025-01-13] MEDS: ACETAMINOPHEN 325 MG TAB PO PRN (08:02)
[2025-01-14 06:32] VITALS: TEMP 99.4
[2025-01-14 08:43] VITALS: BP 105/73
[2025-01-14 12:00] VITALS: BP 108/70; O2SAT 90
[2025-01-14] MEDS: ONDANSETRON 4MG 2ML VIAL IV PRN (13:01)
[2025-01-14] MEDS: BISACODYL 10MG SUPP PR ONE (13:01)
[2025-01-14] MEDS ORDERED: FURO20TA2 PO (15:19)
[2025-01-14] MEDS ORDERED: LEVO75TAB PO (15:19)
[2025-01-14] MEDS ORDERED: ELIQ5TAB PO (15:19)
[2025-01-14] MEDS ORDERED: SENN-130 PO (15:21)
[2025-01-14] MEDS ORDERED: ONDA-83 PO (15:21)
[2025-01-15] MEDS ORDERED: APIXABAN 5 MG TAB (ELIQUIS) PO SCH (21:00)
[2025-01-17] MEDS ORDERED: predniSONE 10MG TAB PO SCH (09:00)
[2025-01-22] MEDS ORDERED: RISATAB3 PO (18:38)
== END 2025-01-14 16:55 | disposition home or self-care (01) ==
LOC: M ED 09:08 → EDBD 09:08 → M ED 01-14 16:55
DX: R53.1 Weakness (principal); J90 Pleural effusion, not elsewhere classified; N21.1 Calculus in urethra; N20.0 Calculus of kidney; I10 Essential (primary) hypertension; J44.9 Chronic obstructive pulmonary disease, unspecified; K21.9 Gastro-esophageal reflux disease without esophagitis; N40.0 Benign prostatic hyperplasia without lower urinary tract symptoms; M10.9 Gout, unspecified; F31.9 Bipolar disorder, unspecified; Z79.52 Long term (current) use of systemic steroids; Z79.02 Long term (current) use of antithrombotics/antiplatelets; Z79.01 Long term (current) use of anticoagulants; Z79.83 Long term (current) use of bisphosphonates
CPT/HCPCS: 36415; 70450; 71045; 74177; 80048; 80053; 81001; 82525; 82607; 83605; 84145; 84207; 84425; 84439; 84443; 85025; 85027; 86140; 86780; 87040; 87086; 94640; 97165; 97530; 99285; J7512; Q9967

== ENCOUNTER 2025-01-17 11:18 | Inpatient (IN) | payer MEDICARE, MEDICAID ==
[~2025-01-17] VITALS: Ht 167.6 cm; Wt 48.7 kg
[~2025-01-17 11:18] MED LIST changes: +FURO20TA2 PO; +ONDA-83 PO; +SENN-130 PO
[2025-01-17] MEDS: NS (Normal Saline) 0.9% 1,000 ML IV ONE (12:10)
[2025-01-17] MEDS: LIDOCAINE 2% 5ML JELLY UROJET TOP ONE (13:05)
[2025-01-17 13:24] LABS: BASO % 0.1 % (0.0-1.0); HEMATOCRIT 36.6 % (42.0-52.0); LYMPH % 5.1 % (24.0-44.0); MEAN CORPUSCULAR HEMOGLOBIN 30.8 pg (27.0-33.0); MEAN CORPUSCULAR HGB CONC 32.8 g/dl (32.0-36.5); MEAN CORPUSCULAR VOLUME 93.8 fl (80.0-96.0); MONO # 1.3 10^3/uL (0.0-0.8); MONO % 6.6 % (2.0-8.0); NEUTROPHILS # 17.6 10^3/uL (1.5-8.5); NEUTROPHILS % 87.5 % (36.0-66.0); PLATELET COUNT, AUTOMATED 419 10^3/uL (150-450); WHITE BLOOD COUNT 20.2 10^3/uL (4.0-10.0)
[2025-01-17 13:27] LABS: KETONE, URINE AUTO RFX NEGATIVE (NEGATIVE); LEUKOCYTE ESTERASE UR AUTO RFX NEGATIVE (NEGATIVE); MUCUS, URINE RFX SMALL (NEGATIVE); NITRITE, URINE AUTO RFX NEGATIVE (NEGATIVE); RBC, URINE AUTO RFX 117 /HPF (0-3); SQUAM EPITHELIAL CELL UR AURFX 0 /HPF (0-6); WBC, URINE AUTO RFX 2 /HPF (0-3)
[2025-01-17 13:35] LABS: LIPASE 34 U/L (12-53)
[2025-01-17 13:37] LABS: ALBUMIN 2.2 G/DL (3.2-5.2); ALKALINE PHOSPHATASE 89 U/L (40-129); ALT/SGPT 45 U/L (7.0-40); AST/SGOT 23 U/L (<34); BILIRUBIN,DIRECT 0.1 MG/DL (<0.4); BILIRUBIN,TOTAL 0.3 MG/DL (0.3-1.2); BLOOD UREA NITROGEN 20 MG/DL (9-23); CALCIUM LEVEL 8.2 MG/DL (8.3-10.6); CARBON DIOXIDE LEVEL 33 MMOL/L (20-31); CHLORIDE LEVEL 99 MMOL/L (98-107); CREATININE FOR GFR 0.64 MG/DL (0.70-1.30); GLOMERULAR FILTRATION RATE > 90.0 (>49); GLUCOSE, FASTING 80 MG/DL (74-106); POTASSIUM SERUM 4.4 MMOL/L (3.5-5.1); SODIUM LEVEL 135 MMOL/L (136-145); TOTAL PROTEIN 4.8 G/DL (5.7-8.2)
[2025-01-17 13:49] LABS: PROCALCITONIN 0.06 ng/ml
[2025-01-17] MEDS: [UNRECOGNIZED DRUG - OTHER] IV ONE (13:55)
[2025-01-17] MEDS: NS 0.9% IV ONE (13:55)
[2025-01-17] MEDS ORDERED: ISOVUE-370 76% 100ML VIAL As Ordered ONE (14:04)
[2025-01-17] MEDS: PIPERACILLIN/TAZOBACTAM SOD 4.5 GM in DEXTROSE 5% (D5W) ADV/MINI-BAG 50 ML IV ONE (14:05)
[2025-01-17] MEDS ORDERED: FURO20TA2 PO (16:07)
[2025-01-17] MEDS ORDERED: LEVO1TAB40 PO (16:07)
[2025-01-17] MEDS ORDERED: PRED20TA PO (16:10)
[2025-01-17] MEDS ORDERED: HOME MED LIST COMPLETE! XX SCH (16:10)
[2025-01-17] MEDS ORDERED: SENN1TAB85 PO (16:10)
[2025-01-17] MEDS ORDERED: PRED10TA2 PO (16:10)
[2025-01-17] MEDS ORDERED: ALBUTEROL 90 MCG/ACT 8GM HFA INHALER INH PRN (17:25)
[2025-01-17] MEDS ORDERED: LEVALBUTEROL HFA 45MCG/ACT 15GM INHALER INH PRN (17:25)
[2025-01-17] MEDS ORDERED: ALBUTEROL SULFATE 2.5MG/0.5ML INH CONCENTRATE NEB SOLN INH PRN (17:25)
[2025-01-17] MEDS: LACTOBACILLUS ACIDOPHILUS CAP (BACID) PO SCH (17:57)
[2025-01-17] MEDS ORDERED: METOPROLOL TART 25 MG TABLET PO SCH (21:00)
[2025-01-17] MEDS: SENOKOT S TAB PO SCH (21:00)
[2025-01-17] MEDS: PIPERACILLIN/TAZOBACTAM SOD 4.5 GM in DEXTROSE 5% (D5W) ADV/MINI-BAG 50 ML IV SCH (21:00)
[2025-01-17 21:18] VITALS: BP 91/55; TEMP 97.6; O2SAT 93
[2025-01-18] VITALS (9 sets, daily range): BP systolic 98–112; BP diastolic 58–68; TEMP 97.1–98.6; O2SAT 91–97
[2025-01-18 07:16] LABS: HEMATOCRIT 33.6 % (42.0-52.0); HEMOGLOBIN 10.9 g/dl (13.5-17.5); MEAN CORPUSCULAR HEMOGLOBIN 30.2 pg (27.0-33.0); MEAN CORPUSCULAR HGB CONC 32.4 g/dl (32.0-36.5); MEAN CORPUSCULAR VOLUME 93.1 fl (80.0-96.0); PLATELET COUNT, AUTOMATED 378 10^3/uL (150-450); RED BLOOD COUNT 3.61 10^6/uL (4.30-6.10); WHITE BLOOD COUNT 13.5 10^3/uL (4.0-10.0)
[2025-01-18 07:54] LABS: PROCALCITONIN 0.06 ng/ml
[2025-01-18 07:58] LABS: ALKALINE PHOSPHATASE 88 U/L (40-129); ALT/SGPT 38 U/L (7.0-40); AST/SGOT 16 U/L (<34); BILIRUBIN,TOTAL 0.4 MG/DL (0.3-1.2); BLOOD UREA NITROGEN 18 MG/DL (9-23); CALCIUM LEVEL 8.3 MG/DL (8.3-10.6); CARBON DIOXIDE LEVEL 33 MMOL/L (20-31); CHLORIDE LEVEL 102 MMOL/L (98-107); CREATININE FOR GFR 0.59 MG/DL (0.70-1.30); GLOMERULAR FILTRATION RATE > 90.0 (>49); GLUCOSE, FASTING 81 MG/DL (74-106); MAGNESIUM LEVEL 1.9 MG/DL (1.8-2.4); POTASSIUM SERUM 4.5 MMOL/L (3.5-5.1); SODIUM LEVEL 139 MMOL/L (136-145); TOTAL PROTEIN 4.5 G/DL (5.7-8.2)
[2025-01-18] MEDS: PANTOPRAZOLE 40MG TAB (PROTONIX) PO SCH (08:51)
[2025-01-18] MEDS: predniSONE 20 MG TAB PO SCH (08:51)
[2025-01-18] MEDS: EZETIMIBE 10MG TABLET (ZETIA) PO SCH (08:52)
[2025-01-18] MEDS: ATORVASTATIN 20 MG TAB PO SCH (08:52)
[2025-01-18] MEDS: FUROSEMIDE 10MG PER 1/2 TABLET PO SCH (09:01)
[2025-01-18] MEDS: COLCHICINE 0.6 MG TABLET PO SCH (09:01)
== END 2025-01-18 14:58 | disposition home or self-care (01) | DRG 871 ==
LOC: M ED 11:18 → M ED INP 17:13 → M PCU 20:43
PROVIDERS: ADMIT Student in an Organized Health Care Education/Training Program; ATTEND Student in an Organized Health Care Education/Training Program
DX: A41.9 Sepsis, unspecified organism (principal); R53.2 Functional quadriplegia; J96.11 Chronic respiratory failure with hypoxia; E87.1 Hypo-osmolality and hyponatremia; E46 Unspecified protein-calorie malnutrition; E27.40 Unspecified adrenocortical insufficiency; R65.20 Severe sepsis without septic shock; K21.9 Gastro-esophageal reflux disease without esophagitis; M19.90 Unspecified osteoarthritis, unspecified site; M54.59 Other low back pain; M10.9 Gout, unspecified; N40.0 Benign prostatic hyperplasia without lower urinary tract symptoms; J44.9 Chronic obstructive pulmonary disease, unspecified; Z79.52 Long term (current) use of systemic steroids; Z86.711 Personal history of pulmonary embolism; F31.9 Bipolar disorder, unspecified; F90.9 Attention-deficit hyperactivity disorder, unspecified type; E78.5 Hyperlipidemia, unspecified; I10 Essential (primary) hypertension; N20.0 Calculus of kidney; Z99.81 Dependence on supplemental oxygen; R33.9 Retention of urine, unspecified; K57.30 Diverticulosis of large intestine without perforation or abscess without bleeding; N28.1 Cyst of kidney, acquired; Z79.899 Other long term (current) drug therapy